=== PATIENT | male | born 1955 | race Caucasian/White ===

== ENCOUNTER 2017-08-16 08:17 | Day surgery (SDC) | payer BC, SELFPAY ==
[2017-08-15 12:00] VITALS: BMI 30.4
[2017-08-16] VITALS (12 sets, daily range): BP systolic 112–131; BP diastolic 57–85; PULSE 65–73; RESP 12–18; TEMP 36.7–36.8; O2SAT 92–98
--- NOTE | 2017-08-16 10:35 | HMH.SCOPE ---
- Procedure: Date/Time of Procedure:: 08/16/17 10:35 Procedure Performed:: Total colonoscopy to terminal ileum with polypectomy by hot snare and biopsy forceps Indications:: Patient is a 61-year-old white male referred for colonoscopy. I performed colonoscopy in 2011 as an initial screen and he had a couple of serrated adenomas and a tubular adenoma. I had recommended a 3 year follow-up colonoscopy. He is asymptomatic. There was a concern for possible hernia by his primary care providers but this was shown to be rectus diastases. Performing Provider:: John Barajas MD Referring Provider:: Oliver Velazquez MD Sedation:: Versed 9 mg, fentanyl 200 mcg. Procedure:: Consent was obtained and patient was taken to same day surgery endoscopy procedure room. He was positioned in a lateral decubitus position. Adequate intravenous sedation was achieved. Variable stiffness Olympus colonoscope was inserted via the anus and advanced to cecum with only minor difficulty. Colonic preparation was good. The appendiceal orifice and ileocecal valve were clearly identified. The colonoscope was advanced into the terminal ileum which appeared grossly normal. Colonoscope was withdrawn through the colon. Near the hepatic flexure there was an irregular adenomatous appearing polyp removed with hot snare. As the colonoscope was withdrawn surveillance was Carried out and several polyps which were rather diminutive were encountered. Most of these appeared to be non-adenomatous. They were removed using cold biopsy forceps in the transverse colon, splenic flexure region, descending colon, sigmoid ?2, rectosigmoid region, and rectal polyps. A couple of the rectal polyps appeared to be small possibly adenomatous. Retroflexion within the rectum revealed no evidence of any pathologic internal hemorrhoids. Findings:: Polyps Impressions:: Polyps Recommendations:: Follow up on the histopathology. Likely plan for follow-up colonoscopy 3-5 years pending the pathology Complications:: None Estimated blood obtained (mL): 1
--- NOTE | 2017-08-16 12:56 | SUR.OPER ---
ERBE cautery used on polyp removal. Cautery 200, coag 25. Grounded to right thigh. skin intact at removal.
== END 2017-08-16 11:00 | disposition home or self-care (01) ==
PROVIDERS: Family Provider Internal Medicine; PCP Internal Medicine Adolescent Medicine; Visit Provider Surgery
PROC: 0DJD8ZZ Inspection of Lower Intestinal Tract, Via Natural or Artificial Opening Endoscopic (ICD-10-PCS; CPT 45385; principal; 2017-08-16 09:00)
DX: Z12.11 Encounter for screening for malignant neoplasm of colon (principal); Z86.010 Personal history of colon polyps; K63.5 Polyp of colon; K62.1 Rectal polyp
CPT/HCPCS: 45385; 45380; 99152; 99153

== ENCOUNTER → 2018-01-16 11:39 | Outpatient (CLI) | payer BC, SELFPAY ==
--- NOTE | 2018-01-16 11:45 | NM_ITS ---
History and Indications: Tobacco use, chest pain, shortness of breath, palpitations, syncope fatigue and abnormal EKG Procedure: Patient exercised on Pelon protocol 6 minutes and 20 seconds, resting heart rate was 67 beats per pressure 134/88, with exercise maximum heart rate achieved was 1 20 bpm which is equal to 76% of the maximum predicted heart rate and a blood pressure was 1 7570. Test was started due to shortness of breath patient denied any complained of chest pain. Patient has adequate exercise capacity achieved 7METS of workload on treadmill, the blood pressure response to exercise was adequate, patient did not achieve the target heart rate. Electrocardiogram: Resting electrocardiogram showed sinus rhythm premature atrial complexes, with exercise frequent premature ventricular complexes present, less than 1.[address] segment depression noted from the baseline EKG. The EKG portion of the exercise Myoview is nondiagnostic. Cardiac stress and resting SPECT images: Cardiac stress and rest SPECT images were obtained using technetium 99 Myoview 31.8 mCi at stress and 10.4 mCi at rest, gated SPECT further analysis of segmental wall motion and calculation of the ejection fraction also done. Cardiac stress and resting SPECT images show decreased tracer activity in the inferior and apical wall which improves on the resting images suggestive of reversible ischemia, computer derived ejection fraction is 48% with no obvious regional wall motion abnormality, right ventricle is normal size and contractility. Conclusion: 1. The EKG portion of the exercise Myoview is nondiagnostic as patient did not achieve the target heart rate. Patient has adequate exercise capacity achieved 7METS of workload on treadmill, the blood pressure response to exercise was adequate, there was no exercise-induced chest discomfort test was stopped due to shortness of breath. 2. Scintigraphic evidence of mild reversible ischemia involving the inferior and apical wall. Computer derived ejection fraction is 48% with no obvious regional wall motion abnormality, right ventricle is normal size and contractility. 3. Abnormal exercise Myoview study.
--- NOTE | 2018-01-16 13:37 | HMH.ITSHM ---
GABAPENTIN ZYRTEC ASA
== END ==
PROVIDERS: Family Provider Internal Medicine; PCP Internal Medicine Adolescent Medicine; Visit Provider Internal Medicine Adolescent Medicine
DX: R94.31 Abnormal electrocardiogram [ECG] [EKG] (principal); R53.81 Other malaise
CPT/HCPCS: 78452; 93017; 93306; A9502

== ENCOUNTER → 2018-01-30 07:51 | Outpatient (CLI) | payer BC, SELFPAY ==
--- NOTE | 2018-01-30 07:55 | US_ITS ---
US Arterial Ankle Brachial Ind History: ITS.REASON: claudication millicuries smoker, wrist pain ORDERING PHYSICIAN: Franco Hanna MD PATIENT AGE: 62 years TECHNIQUE: Segmental pressures obtained of both right and left leg. These are compared to brachial blood pressure to yield index at each level sampled including summary GISELA. The data sheets from the procedure are available in PACS FINDINGS Rest study only performed today No prior studies available for comparison. Blood pressures reported are in millimeters mercury. RIGHT LEG GISELA = 1.4. RIGHT LEG TBI=.9 Brachial BP: 130 Thigh BP: 152 Calf BP: 162 Ankle PT: 176 Ankle DP : 171 Digit =111 LEFT LEG GISELA = 1.3 LEFT LEG TBI= .9 Brachial BPD: 127 Thigh BP: 157 Calf BP: 171 Ankle PT:174 Ankle DP: 171 Digit = 121 Pulses and waveforms: Normal IMPRESSION: 1. The ABIs are slightly high consistent with hardening of the vessels which may be seen with diabetes. 2. Normal TBIs
== END ==
PROVIDERS: Family Provider Internal Medicine; PCP Internal Medicine Adolescent Medicine; Visit Provider Internal Medicine
DX: I70.213 Atherosclerosis of native arteries of extremities with intermittent claudication, bilateral legs
CPT/HCPCS: 93922

== ENCOUNTER → 2019-01-15 08:58 | Outpatient (CLI) | payer BC, SELFPAY ==
--- NOTE | 2019-01-15 09:03 | XR_ITS ---
XR tibia fibula LT 2V CLINICAL INDICATION: ITS.REASON: ACUTE LT KNEE PAIN, HX LOW LEG FX ORDERING PHYSICIAN: Elle Sal APRN PATIENT AGE: 63 years Comparison: 11/23/2010 FINDINGS: There are no post surgical images available other than from today. Previous radiograph demonstrated displaced fracture of the proximal tibia and mid shaft of the fibula. There is been placement of an intramedullary gina stabilizing the fracture fragments with healing of the proximal tibia and mid shaft fibular fracture with good alignment. There are 3 screws in the proximal aspect of the intramedullary gina. The second screw from the top is slightly. Age of this is unknown. The other screws have an unremarkable appearance. IMPRESSION: Status post ORIF healed left tib-fib fractures with good alignment. Intramedullary gina is present with some bowing of the second screw from the top at the proximal tibia age indeterminate. The other screws have an unremarkable appearance
--- NOTE | 2019-01-15 09:03 | XR_ITS ---
XR knee LT 3V HISTORY: ITS.REASON: ACUTE LT KNEE PAIN, HX LOW LEG FX ORDERING PHYSICIAN: Elle Sal APRN PATIENT AGE: 63 years COMPARISON: 11/23/2010 FINDINGS The knee joint has an unremarkable appearance. No acute fracture or dislocation evident. Prior ORIF proximal tibial fracture. Please see tib-fib report for further description. IMPRESSION: No acute finding of the knee
== END ==
PROVIDERS: PCP Internal Medicine Adolescent Medicine; Visit Provider Nurse Practitioner Family
DX: M25.562 Pain in left knee (principal); Z87.81 Personal history of (healed) traumatic fracture
CPT/HCPCS: 73562; 73590

== ENCOUNTER 2020-11-20 17:30 | Emergency (ER) | payer MEDICARE, BC, SELFPAY ==
[2020-11-20] VITALS (7 sets, daily range): BP systolic 116–165; BP diastolic 52–82; PULSE 59–82; RESP 16–20; TEMP 36.6–36.7; O2SAT 95–98; BMI 30.8
--- NOTE | 2020-11-20 17:42 | CT_ITS ---
PROCEDURE: CT ABDOMEN PELVIS WO CON CLINICAL INDICATION: r/o stone Right-sided flank pain COMPARISON: No exams were available for comparison TECHNIQUE: Axial images obtained with sagittal and coronal reformats. All CT scans at the facility use one or more dose reduction, viz: automated exposure control, ma/kV adjustment per patient size (including targeted exams where dose is matched to indication, i.e. head), or iterative reconstruction technique. FINDINGS: LOWER THORAX: Atelectatic changes are present in the lingula. 6 mm subpleural nodular opacity left lower lobe laterally. Consider 6-12 month follow-up. ABDOMEN & PELVIS: There are several low-density lesions of the liver the largest in the right hepatic lobe measuring 3 cm suggestive hepatic cyst. There is mild prominence of the biliary tree of the left hepatic lobe. The gallbladder has an unremarkable appearance. There is splenomegaly at 15 cm. The left adrenal gland is enlarged maintaining an adrenal form shape consistent adenomatous involvement. Bilateral renal calculi are noted measuring up to 6 mm on the left and 3 mm on the right. There is mild to moderate left hydronephrosis and hydroureter secondary to an 8 mm stone at the left ureterovesical junction. No intestinal obstruction or free air. No evidence of appendicitis or diverticulitis. Christianson catheter is present. Mildly enlarged prostate. Chronic wedge compression changes are present at T12 with loss of height centrally of approximately 50 percent and anteriorly approximately 40 percent. There are numerous small sclerotic foci of the spine pelvis and proximal femora. IMPRESSION: 1. 8 mm left ureterovesical junction stone with [id number] left hydronephrosis and hydroureter with bilateral renal calculi.. 2. Hepatic cysts. Suspected biliary dilatation of the left hepatic lobe. Enhanced CT or MRI of the liver and biliary tree may provide further evaluation. 3. Splenomegaly. 4. Numerous small blastic foci of the spine and pelvis raising the suspicion of metastatic disease. Consider whole-body bone scan for further evaluation. 5. 6 mm left lower lobe nodule. Consider 6-12 month follow-up Dictated by: Ishan Aragon MD 11/21/2020 06:28 Ishan Aragon MD in [place] 11/21/2020 06:28
[2020-11-20 17:49] LABS: Basophils % 0.6 % (0.1-2.0); Eosinophils # 0.2 K/mm3 (0.0-0.4); Eosinophils % 3.2 % (0.1-12.0); Hematocrit 46.9 % (42.0-52.0); Hemoglobin 15.5 g/dL (14.1-18.0); Lymphocytes # 1.2 K/mm3 (0.7-4.5); Mean Corpuscular HGB Conc 32.9 g/dL (31.8-35.4); Mean Corpuscular Hemoglobin 30.6 pg (27.0-31.2); Mean Corpuscular Volume 92.8 fl (80-94); Monocytes # 0.4 K/mm3 (0.1-1.0); Monocytes % 5.6 % (1.7-9.3); Neutrophils # 5.1 K/mm3 (1.8-7.8); Neutrophils % 73.7 % (37.0-80.0); Platelet Count 148 K/mm3 (142-424); Red Blood Count 5.06 M/mm3 (4.60-6.20)
--- NOTE | 2020-11-20 17:51 | HMH.EDGENADL ---
ED Disposition Clinical Impression: Left ureteral calculus Disposition: Home, Self-Care Condition on Discharge: Fair Instructions: DI for Kidney Stones Additional Instructions: Nothing to eat or drink after midnight tonight. Percocet as needed for pain. Zofran as needed for nausea. Additional instructions for KIDNEY STONE (URETERAL CALCULUS): Drink plenty of fluids until midnight. Strain your urine and save any stones you catch. Return immediately if you develop a fever or have uncontrollable vomiting or uncontrollable pain. A pulmonary nodule (spot on the lung) was discovered during your evaluation today. It is recommended that you follow-up with a primary care provider for further evaluation. Additional instructions for CONTROLLED SUBSTANCES: You have been prescribed a medication that is a controlled substance. Controlled substances include pain medications known as opiates and sedative nerve medications known as benzodiazepines. Tramadol, fioricet, and gabapentin are also controlled substances. Some common opiates include: Codeine (such as Tylenol #3) Hydrocodone (Vicodin, Lortab, Lorcet, Lenorah) Oxycodone (Percocet, Percodan, Oxycodone, Oxy IR) Some common benzodiazepines include: Diazepam (Valium) Lorazepam (Ativan) Alprazolam (Xanax) Clonazepam (Klonopin) Oxazepam (Serax) All of these controlled substances are highly addictive and frequently abused. Misuse can and frequently does lead to addiction as well as overdose and . Medication should be stored in a locked cabinet or other secure storage unit. Do not store the medication in a motor vehicle. Short term supplies, 3 days or less, are prescribed because of the highly addictive nature of the medication. Any of the controlled substance medication NOT taken should be disposed of properly and NOT SAVED. The recommended method of disposing of unused medications is: Place the medicines in a sealable plastic bag. If the medicine is a solid, crush it or add water to dissolve it. Add something undesirable (cat litter, coffee grounds, etc.) Dispose of sealed bag in household trash Do not flush or pour unused medicines down a sink or drain. Controlled substances should not be shared, given away or sold. Because of the addictive nature and frequent abuse, these medications are sometimes stolen. These medications should be kept in a safe place where they cannot be stolen. Do not keep them in your car or purse. Lost or stolen prescriptions for controlled substances WILL NOT BE REFILLED in this emergency department, regardless of whether a police report was filed. Prescriptions: Tamsulosin HCl [Flomax 0.4mg capsule] 0.4 mg PO HS #10 cap.er.24h Transmission Status: Pending to [facility]/pharmacy #[id number] Oxycodone HCl/Acetaminophen [Percocet 10-325 mg Tablet] 1 tab PO Q4H PRN #12 tab PRN Reason: Moderate To Severe Pain Transmission Status: Received by [facility]/pharmacy #[id number] Ondansetron [Zofran 4mg ODT] 4 mg PO TIDP PRN #10 tab.rapdis PRN Reason: Nausea And Vomiting Transmission Status: Pending to [facility]/pharmacy #[id number] Referrals: Elle Sal APRN [Primary Care Provider] - - Critical Care Critical Care Time: No Attestation: On , the high probability of a clinically significant, sudden or life threatening deterioration of the following system(s) required my full and direct attention, intervention and personal management. The time I documented below is in addition to time spent performing reported procedures but includes the following listed in this critical care notation. Medical Decision Making - Francisco Inquiry Pt receiving controlled substance: Yes Francisco was queried for this patient: Yes Risks and benefits of using a controlled substance: were discussed with pt by me Vital Signs: 11/20/20 17:31 11/20/20 18:02 11/20/20 18:30 Temperature 98.1 F Temperature Source Oral Pulse Rate 74 82 Pulse Rate [Radi
[2020-11-20 17:54] LABS: Chloride 107 mmol/L (98-107); Sodium 137 mmol/L (136-145)
[2020-11-20 17:55] LABS: Potassium 4.2 mmoL/L (3.5-5.1)
[2020-11-20 17:57] LABS: Alanine Aminotransferase 21 U/L (12-78); Albumin Level 4.5 g/dl (3.5-5.0); Albumin/Globulin Ratio 1.7 (1.1-1.8); Alkaline Phosphatase 81 U/L (38-126); Anion Gap 10.2 mEq/L (5-15); Aspartate Amino Transferase 23 U/L (17-59); Bilirubin,Total 0.5 mg/dl (0.2-1.3); Blood Urea Nitrogen 18 mg/dl (9-20); Carbon Dioxide 24 mmol/L (22.0-30.0); Creatinine Clearance Estimated 112 mL/min (50-200); Estimated Glomerular Filt Rate 84 ml/min (>60); GFR (African American) 102 ML/MIN (>60); Globulin 2.6 g/dL (1.3-3.2); Total Protein,Serum 7.1 g/dl (6.3-8.2)
[2020-11-20 17:58] LABS: Calcium 9.1 mg/dl (8.4-10.2); Glucose 109 mg/dl (74-100)
--- NOTE | 2020-11-20 18:10 | PC.NURSE ---
PT STATES STILL UNABLE TO GIVE A URINE SPECIMEN
[2020-11-20 18:48] LABS: Microscopic, Urine URINE MICROSCOPIC (MICROSCOPIC)
[2020-11-20 19:04] LABS: Appearance,Urine CLEAR (Clear); Bilirubin,Urine Negative (Negative); Blood, Urine 3+ (Negative); Color,Urine YELLOW (Yellow); Glucose,Urine (UA) Negative (Negative); Ketones,Urine Negative (Negative); Leukocyte Esterase,Urine Negative (Negative); Nitrate,Urine Negative (Negative); PH,Urine 5.5 (5.0-8.5); Protein,Urine Negative (Negative); Specific Gravity, Urine >= 1.030 (1.005-1.030); Urobilinogen,Urine 0.2 EU/dl (0.2)
[2020-11-20 19:07] LABS: RBC,Urine 20-50 #/hpf (0-3); Squamous Epithelial Cell,Urine Occasional #/hpf (0-5)
--- NOTE | 2020-11-20 19:13 | PC.NURSE ---
pt returned from CT via wheelchair
--- NOTE | 2020-11-20 19:48 | PC.NURSE ---
on phone with Dr esparza
--- NOTE | 2020-11-20 20:11 | PC.NURSE ---
s/w Sandra Gonzáles in regards to adding pt on for Dr. Linares's surgery schedule for tomorrow and verified time with Dr. Linares. Pt was instructed to be at [facility] at 1400 on 11/21/20, and NPO at 0000 (midnight). Christianson removed per Dr. Ochoa.
--- NOTE | 2020-11-20 20:13 | PC.NURSE ---
spoke to house and was advised they had an opening for surgery at 0730 in the morning or after dr. eastman [address] esparza and he advised to schedule after his [address] sure[address] informed house of dr. esparza's decision and advised patient to be here at 1400 tomorrow and be npo after midnight per house.
[2020-11-20 20:36] LABS: Coronavirus 19 IgG Antibody Negative (Negative); Coronavirus 19 IgM Antibody Negative (Negative)
== END 2020-11-20 20:24 | disposition home or self-care (01) ==
PROVIDERS: Emergency Provider Emergency Medicine; PCP Nurse Practitioner Family
DX: N13.2 Hydronephrosis with renal and ureteral calculous obstruction (principal); Z87.442 Personal history of urinary calculi; I10 Essential (primary) hypertension; R91.1 Solitary pulmonary nodule; Z01.84 Encounter for antibody response examination
CPT/HCPCS: 74176; 80053; 81001; 85025; 86328; 96365; 96375; 96376; 99283; J2405

== ENCOUNTER 2020-11-21 14:33 | Day surgery (SDC) | payer MEDICARE, BC, SELFPAY ==
[2020-11-21] VITALS (9 sets, daily range): BP systolic 108–135; BP diastolic 66–78; PULSE 60–68; RESP 16–20; TEMP 36.5–43; O2SAT 91–96; BMI 30.8
--- NOTE | 2020-11-21 15:23 | P.PN_ITS ---
[facility] Anesthesia Checklist - Patient Identification Patient Identification: Arm Band - Structural Data Admitted From: Home Planned Operative Procedure/s: Left Ureteroscopy with Laser Stone Extraction Consent for Planned Operative Procedure(s) Verified: Yes Verified Documents: Surgical Consent, History and Physical - NPO Status Verified Time NPO: 00:00 - Additional verifications Anesthesia Reactions: No Hx Blood Transfusions: No Blood Transfusion Reaction: No - Airway Assessment C-Spine Mobility Assessed: Yes (mp2) TMJ Mobility Assessed: Yes Dentition: Good Dentition - Neurological Assessment Level of Consciousness: Awake, Alert - Anesthesia Plan Anesthesia Risk discussed: Yes Anesthesia Plan: Verified ASA Class: II Anesthesia Type: General [facility] History Medical History: Reports:: Hyperlipidemia, Hypertension Denies:: Cancer, Diabetes Mellitus Type 1, Diabetes Mellitus Type 2, Internal Pacemaker, Lung Disease, MRSA, Seizures *Have you ever received a pneumonia vaccine?: Yes *Have you received a flu vaccine this season?: Yes Other Medical History: Denies: Blood Transfusion Reaction Anesthesia experience/problems:: nac Laterality Cases: Bilateral: Tonsillectomy Other Surgeries: Yes: Cardiac Catheterization (01/25/18 no stents), Colonoscopy, Hernia Repair, Other. No: Pacemaker Amputation: No Fractures: Yes (left leg) - *Social History Last grade of school completed: High school graduate Smoking Status: Current every day smoker Tobacco Type: cigarettes # Packs/Day (cigarettes): 2 Alcohol Intake: never Alcohol Intake Frequency:: other Substance Use Type: denies use *Occupational Status:: retired Housing: house Household Members: spouse *Travel in the last 8 weeks: None Family Hx:: No significant family history
--- NOTE | 2020-11-21 15:51 | P.OP_ITS ---
Date of procedure: 11/21/20 Pre-op Diagnosis:: 8 mm distal left ureteral stone Post-op Diagnosis:: No evidence of stone in the ureter or kidney Procedure performed:: Cystoscopy with ureteroscopy and pyeloscopy Surgeon:: Tani Linares MD ELECTRONIC SCANNER OPERATOR:: Roberto Lyn Anesthesia: GETA Estimated blood loss (mL): 0 Clinical Note:: 65-year-old white male with 2 ER visits this week for left renal colic. He has an 8 mm stone in the distal left ureter by CT scan. He was in the emergency room last night and was discharged home to return today for outpatient surgery. He denies having passed a stone during the evening. He does complain of some dysuria today. Operative findings:: No evidence of stone in the ureter or kidney on ureteroscopy. Operative note:: Patient taken to the operating room after informed consent was obtained. He was placed on the operating table in the supine position and general anesthesia administered. Preoperative antibiotics and sequential compression devices placed. He was then placed into the dorsal lithotomy position and prepped and draped in standard surgical fashion. 22 Cristopher passed into the urethra and into the bladder without difficulty. The bladder was examined in a systematic fashion. There is no evidence of mucosal abnormalities, stones, diverticula or trabeculation. The ureteral orifices in their normal anatomic position and of normal caliber. Was a little bit of blood at the left ureteral orifice. A guidewire was passed into the left ureteral orifice and passed into the renal pelvis without resistance. The cystoscope removed and our semirigid ureteroscope then passed into the ureter and up to the mid ureter without evidence of a stone. Fluoroscopy revealed no evidence of calcifications. I then passed the flexible ureteroscope over the guidewire and into the kidney and the renal calyces were inspected and no evidence of stones. Scope removed bladder drained Urojet placed into the urethra. Patient tolerated procedure well no complications. Condition: stable Disposition: PACU Specimens:: None Complications:: None
--- NOTE | 2020-11-21 15:51 | P.PN_ITS ---
[facility] Anesthesia Record Part I Intake, IV Amount: 500 Estimated blood loss (mL): 0 Urine output (mL): 0 Blood Pressure: 122/66 SaO2: 96 Pulse Rate: 65 Respiratory Rate: 16 Temperature: 98.1 F Patient is:: Drowsy, Stable Stable to PACU at:: 15:45
--- NOTE | 2020-11-21 18:07 | XR_ITS ---
PROCEDURE: XR KUB CLINICAL INDICATION: Left ureteral stone COMPARISON: CT CT ABDOMEN PELVIS WO CON from 11/20/2020 FINDINGS: Fluoroscopy time: 16 seconds. Two images are submitted with the C-arm showing a ureteral scope in place on the left. IMPRESSION: S/p ureteroscopy with fluoro guidance. Dictated by: Ishan Aragon MD 11/22/2020 10:35 Ishan Aragon MD in [place] 11/22/2020 10:35
--- NOTE | 2020-11-22 10:36 | HMH.ANESII ---
[facility] Anesthesia Record Part II Discharge Time: 16:15 Destination: Surgical Day Care (OP Surgery) PACU nurse assessment reviewed?: Yes Patient Condition:: Good Anesthesia Complications:: None Swallowing reflex intact?: Yes Cyanosis?: No Blood Pressure: 129/70 Pulse Rate: 60 Temperature: 97 F Mental Status: Alert & Oriented Pain level:: 0 Nausea and/or vomitting:: None Intake, IV Amount: 0
[2020-11-22 10:37] VITALS: BP 129/70; PULSE 60; TEMP 36.1
== END 2020-11-21 16:39 | disposition home or self-care (01) ==
LOC: OR 14:36
PROVIDERS: PCP Nurse Practitioner Family; Visit Provider Urology
PROC: (CPT 52352; principal; 2020-11-21 17:15)
DX: N20.1 Calculus of ureter (principal); Z87.442 Personal history of urinary calculi; E78.5 Hyperlipidemia, unspecified; I10 Essential (primary) hypertension; Z72.0 Tobacco use; G25.81 Restless legs syndrome; Z86.73 Personal history of transient ischemic attack (TIA), and cerebral infarction without residual deficits; Z79.82 Long term (current) use of aspirin; Z79.899 Other long term (current) drug therapy
CPT/HCPCS: 52351; 74018; 76000; 96374; J2405

== ENCOUNTER → 2021-12-04 15:11 | Outpatient (CLI) | payer MEDICARE, BC, SELFPAY ==
--- NOTE | 2021-12-04 15:14 | CT_ITS ---
FINAL REPORT CLINICAL HISTORY: current smoker COMPARISON: Abdomen pelvis CT dated November 20, 2020. FINDINGS: Low-Dose Chest CT CTDI vol (mGy): 2.90 DLP (mGy-cm): 106.81 Axial images were obtained from the lung apex to the mid abdomen by computed tomography. Low-dose protocol was utilized. FINDINGS: CHEST: There is no axillary adenopathy. There is no hilar adenopathy. There is an 18 mm cystic mass in the anterior mediastinum which is nonspecific in favors benign. The heart is proper size. There are mild vascular calcifications. There is no pericardial or pleural effusion. Limited images of the upper abdomen demonstrates stable low-attenuation hepatic masses which favors cysts. There are several small renal stones. Lung window images demonstrate mild pulmonary scarring. There is a 6 mm pleural based nodular opacity in the lateral left lung base on image 59 which is stable. IMPRESSION: Stable 6 mm nodule in the left base. Lung RADS category 2. Recommend 12 month follow-up low-dose chest CT. Reviewed, Interpreted and Dictated by John Victor III, MD Transcribed by Kalpana Kaiser Authenticated by John Victor III, MD on 12/04/2021 04:05:09 PM [facility]
== END ==
PROVIDERS: PCP Nurse Practitioner Family; Visit Provider Nurse Practitioner Family
DX: Z87.891 Personal history of nicotine dependence (principal); Z12.2 Encounter for screening for malignant neoplasm of respiratory organs
CPT/HCPCS: 71271

== ENCOUNTER 2022-08-20 07:29 | Day surgery (SDC) | payer MEDICARE, BC, SELFPAY ==
[2022-08-16 08:52] VITALS: BMI 32.1
[2022-08-20 07:44] VITALS: BP 124/64; PULSE 78; RESP 16; TEMP 36.4; O2SAT 94
[2022-08-20 08:51] VITALS: O2SAT 94
--- NOTE | 2022-08-20 09:32 | EXP.ANES.CKL ---
[facility] Disclaimer: The information contained in this section may have been updated after the patient was seen, as this information can be updated by other users. Medical History Enlarged prostate Hernia Surgical History History of surgery History of surgery Family History Father Throat cancer Social History Smoking Status: Current every day smoker tobacco type: cigarettes packs per day: 2 years smoked: 50 second hand exposure: No alcohol intake: never counseling provided: provider counseling substance use type: denies use current occupational status: retired Travel in the last 8 weeks: None household members: spouse housing: house current occupation: [employer] current occupational exposures/hazards: No caffeine: Yes [facility] Anesthesia Checklist Patient Identification Patient Identification: Verbal (Name & ) Structural Data Admitted From: Home Planned Operative Procedure/s: colonoscopy Consent for Planned Operative Procedure(s) Verified: Yes Additional verifications Anesthesia Reactions: No Hx Blood Transfusions: No Blood Transfusion Reaction: No Neurological Assessment Level of Consciousness: Awake, Alert and Appropriate Anesthesia Plan Anesthesia Risk discussed: Yes Anesthesia Plan: Verified ASA Class: III Anesthesia Type: MAC
--- NOTE | 2022-08-20 09:42 | HMH.SCOPE ---
Procedure: Date: 08/20/22 Patient Date of :: 1955 Procedure Performed:: Total colonoscopy to terminal ileum with polypectomy using biopsy and snare Indications:: Patient is a 66-year-old male presents for follow-up colonoscopy due to history of polyps. He had colonoscopy in 2011 and had a couple of serrated adenomas. Colonoscopy on 08/16/2017 revealed at least 6 tubular adenomas and a couple of serrated adenomas. Colonoscopy was recommended for 2 years. That was 5 years ago. Performing Provider:: John Barajas MD Referring Provider:: Cristiane Sal Sedation:: MAC sedation Procedure:: Patient history was obtained and appropriate physical examination was performed. Patient's medications and allergies were reviewed. Informed consent was obtained after explaining the benefits, alternatives, and risks of the procedure including, but not limited to, bleeding, perforation, missed lesions, and adverse reaction to anesthesia medications. Patient was transported to endoscopy procedure room. Patient was connected to monitoring devices. Throughout the procedure the patient's blood pressure, pulse, and oxygen saturations were monitored continuously. Patient identification and planned procedure were verified by the staff. Patient was positioned in lateral decubitus position. Digital anorectal exam was performed. Variable stiffness Olympus colonoscope was inserted and advanced under direct visualization to the cecum. Adequacy of the colonic preparation was noted. The colonoscope was advanced a short distance into the terminal ileum. The colonoscope was then slowly withdrawn while carefully examining the color, texture, anatomy, and integrity of the mucosoa circumferentially. Within the rectum retroflexion was performed. Colonoscope was then withdrawn. Findings:: Colonoscope was inserted via the anus. He had a fair colonic preparation with stool coating some of the colon vela. This could not be fully cleared despite irrigation and suctioning. At the hepatic flexure there was a relatively small adenomatous appearing polyp removed with cutting snare. In the distal transverse colon there was a small to moderate adenomatous appearing polyp removed with cutting snare. It was unclear if this was fully retrieved due to spasticity of the colon and fair preparation. Residual polyp was removed with the biopsy forceps. In the descending colon there was a tiny diminutive polyp removed with biopsy forceps. In the transverse colon after readvancement of the colonoscope in an attempt to identify the previous polyp there was a small polyp removed with biopsy forceps. Additional polyp in the descending colon was removed with biopsy forceps. IMPRESSION: Fair colonic preparation which could not be cleared with irrigation and suctioning Polyps as noted above Recommendations:: Given the suboptimal preparation and potential for missed lesions as well as prior history and current polyps likely recommend repeat colonoscopy 2 years with multi day prep Complications:: None immediately apparent Estimated blood obtained (mL): 2
[2022-08-20 09:43] VITALS: BP 142/65; PULSE 83; RESP 16; TEMP 36.6; O2SAT 93
[2022-08-20 09:53] VITALS: BP 123/53; PULSE 80; RESP 18; TEMP 36.6; O2SAT 95
[2022-08-20 10:03] VITALS: BP 122/68; PULSE 80; RESP 18; TEMP 36.6; O2SAT 97
[2022-08-20 10:17] VITALS: BP 151/99; PULSE 70; RESP 18; TEMP 36.6; O2SAT 97
== END 2022-08-20 10:17 | disposition home or self-care (01) ==
PROVIDERS: PCP Nurse Practitioner Family; Visit Provider Surgery
PROC: 0DJD8ZZ Inspection of Lower Intestinal Tract, Via Natural or Artificial Opening Endoscopic (ICD-10-PCS; principal; 2022-08-20 08:30)
DX: Z12.11 Encounter for screening for malignant neoplasm of colon (principal); D12.6 Benign neoplasm of colon, unspecified; Z86.010 Personal history of colon polyps; F17.210 Nicotine dependence, cigarettes, uncomplicated; Z79.899 Other long term (current) drug therapy
CPT/HCPCS: 45380; 45385; 88305

== ENCOUNTER 2022-09-03 06:32 | Emergency (ER) | payer MEDICARE, BC, SELFPAY ==
[2022-09-03 06:44] VITALS: BP 140/91; PULSE 81; RESP 18; TEMP 37; O2SAT 96; BMI 32.1
[2022-09-03 07:00] LABS: Microscopic, Urine URINE MICROSCOPIC (MICROSCOPIC)
[2022-09-03 07:01] VITALS: BP 150/81; PULSE 82; O2SAT 95
[2022-09-03 07:02] LABS: Basophils # 0.1 K/mm3 (0-0.2); Basophils % 0.9 % (0.1-2.0); Eosinophils # 0.3 K/mm3 (0.0-0.4); Eosinophils % 5.9 % (0.1-12.0); Hematocrit 48.3 % (42.0-52.0); Hemoglobin 15.8 g/dL (14.1-18.0); Lymphocytes % 16.8 % (10-50); Mean Corpuscular HGB Conc 32.8 g/dL (31.8-35.4); Mean Corpuscular Hemoglobin 30.7 pg (27.0-31.2); Mean Corpuscular Volume 93.6 fl (80-94); Mean Platelet Volume 8.6 fl (7.4-10.4); Monocytes # 0.3 K/mm3 (0.1-1.0); Monocytes % 4.9 % (1.7-9.3); Neutrophils # 4.2 K/mm3 (1.8-7.8); Neutrophils % 71.5 % (37.0-80.0); Platelet Count 163 K/mm3 (142-424); Red Blood Count 5.16 M/mm3 (4.60-6.20); Red Cell Distribution Width 13.2 % (11.5-17.5); White Blood Count 5.9 K/mm3 (4.8-10.8)
[2022-09-03 07:06] LABS: Appearance,Urine CLEAR (Clear); Bilirubin,Urine Negative (Negative); Blood, Urine Negative (Negative); Color,Urine YELLOW (Yellow); Glucose,Urine (UA) Negative (Negative); Ketones,Urine Negative (Negative); Leukocyte Esterase,Urine Negative (Negative); Nitrate,Urine Negative (Negative); Protein,Urine Negative (Negative); Specific Gravity, Urine 1.025 (1.005-1.030); Urobilinogen,Urine 0.2 EU/dl (0.2)
[2022-09-03 07:08] LABS: Alanine Aminotransferase 30 U/L (12-78); Albumin Level 4.4 g/dl (3.5-5.0); Albumin/Globulin Ratio 1.5 (1.1-1.8); Alkaline Phosphatase 81 U/L (38-126); Anion Gap 11.5 mEq/L (5-15); Aspartate Amino Transferase 25 U/L (17-59); Bilirubin,Total 0.5 mg/dl (0.2-1.3); Blood Urea Nitrogen 12 mg/dl (9-20); Calcium 8.5 mg/dl (8.4-10.2); Carbon Dioxide 28 mmol/L (22.0-30.0); Chloride 104 mmol/L (98-107); Creatinine Clearance Estimated 115 mL/min (50-200); Estimated Glomerular Filt Rate 96 ml/min (>60); GFR (African American) 117 ML/MIN (>60); Glucose 109 mg/dl (74-100); Potassium 4.5 mmoL/L (3.5-5.1); Sodium 139 mmol/L (136-145); Total Protein,Serum 7.4 g/dl (6.3-8.2)
[2022-09-03 07:14] LABS: C-Reactive Protein 0.9 mg/L (0-4)
--- NOTE | 2022-09-03 07:14 | CT_ITS ---
FINAL REPORT TECHNIQUE: Thin section axial images were obtained from the lung bases to the pubic symphysis without IV contrast. Coronal reconstruction images were obtained from the axial data. Exam was performed using dose reduction technique. CLINICAL HISTORY: Low back and flank pain COMPARISON: 11/20/2020 FINDINGS: There are bilateral nonobstructing renal stones. There is no obstructing stone. There is no hydronephrosis or perinephric stranding. Previously seen distal left ureteral stone has passed. The gallbladder is present. There are multiple hypodense liver lesions which are unchanged and likely represent cysts. Left adrenal nodules are unchanged. The remaining unenhanced solid abdominal organs are unremarkable. There is no evidence of small bowel obstruction. The appendix is normal. GI tract is without acute abnormality. There are multiple mildly prominent portal and periportal lymph nodes which are unchanged. There is no ascites. There are stable sclerotic lesions in the pelvis and spine. Sclerotic bone metastasis is not excluded. IMPRESSION: No obstructing renal stones. Bilateral nonobstructing renal stones. Prominent upper abdominal lymph nodes. Stable sclerotic lesions in the pelvis and spine. Sclerotic bone metastasis is not excluded. Reviewed, Interpreted and Dictated by Lorena Laurent MD Transcribed by Radha Redman Authenticated and [facility]
--- NOTE | 2022-09-03 07:14 | CT_ITS ---
FINAL REPORT TECHNIQUE: Thin section axial images were obtained through the lumbar spine without contrast. Sagittal and coronal reconstruction images were obtained from the axial data. Exam was performed using dose reduction techniques. CLINICAL HISTORY: flank pain, low back pain COMPARISON: CT abdomen and pelvis dated 11/20/2020 FINDINGS: A compression fracture of T12 is unchanged as compared to the prior exam. Remaining vertebral body height is preserved. There is grade 1 anterior spondylolisthesis of L4 on L5. Alignment is otherwise normal. There are multiple scattered small sclerotic lesions similar to the prior exam. Metastatic disease is not excluded. Paraspinal soft tissues are within normal limits. There is no paraspinal mass or fluid collection. L1-2: No significant canal stenosis or neural foraminal narrowing. L2-3: There is an annular disc bulge with no central canal stenosis but mild bilateral neural foraminal narrowing. L3-4: There is an annular disc bulge with no central canal stenosis but mild bilateral neural foraminal narrowing. L4-5: There is an annular disc bulge with bilateral facet osteoarthropathy. There is mild to moderate central canal stenosis with moderate bilateral neural foraminal narrowing. L5-S1: There is bilateral facet osteoarthropathy. There is no significant central canal stenosis but mild bilateral neural foraminal narrowing. IMPRESSION: No acute abnormality of the lumbar spine. Stable, chronic compression of T12. Grade 1 anterior spondylolisthesis of L4 on 5 with degenerative disc disease. Small sclerotic bone lesions similar to CT of the abdomen and pelvis from 2020. Reviewed, Interpreted and Dictated by Lorena Laurent MD Transcribed by Radha Redman Authenticated and [facility]
[2022-09-03 07:17] LABS: Bacteria,Urine Trace /lpf; RBC,Urine Occasional #/hpf (0-3); Squamous Epithelial Cell,Urine Occasional #/hpf (0-5); WBC,Urine Occasional #/hpf (0-3)
[2022-09-03 07:28] LABS: Erythrocyte Sedimentation Rate 1 mm/hr (0-20)
--- NOTE | 2022-09-03 07:47 | HMH.EDBACK ---
Discharge Plan Disposition Patient Disposition: Home, Self-Care Prescriptions Prescriptions: New prednisone [prednisone] 20 mg tablet 20 mg PO BID Qty: 10 0RF No Action aspirin 81 MG tablet,chewable 81 mg PO DAILY gabapentin 400 mg capsule 400 mg PO TID meloxicam 7.5 mg tablet 7.5 mg PO DAILY finasteride 5 mg tablet 5 mg PO DAILY atorvastatin 40 MG tablet 40 mg PO HS Referrals Follow up/Referrals: Elle Sal APRN [Primary Care Provider] - See instructions Clinical Impressions Clinical Impression: Lumbar radiculopathy Instructions Patient Instructions: DI for Low Back Pain Discharge ED Provider: Brian Matthews Back Pain HPI General Chief Complaint: Back Pain/Injury Stated Complaint: right side lower back pain,top of legs hurt Time Seen by Provider: 09/03/22 07:20 Mode of Arrival: Ambulatory Source of Information: Patient Limitations: No Limitations Description of Symptoms (Recalled from ER Triage Doc. by RN): Pt arrived via private vehicle. Pt states that he has been having pain in the anterior aspect of his bilateral thighs since Tuesday evening. Denies any injury. Does report a history of neuropathy, but states that this is a different feeling pain. Patient also c/o lower right sided back pain that began last night. Also denies injury here. Says that the pain does not radiate and remains constant. Patient states that he also has had a headache since last night that hasnt responded to advil. History of Present Illness HPI Narrative: pt with rt flank pain with hx of kidney stones and also has thigh pain - no fever or trauma and no rash - no relief with otc meds - no cauda equina sx-no hematuria MD Complaint: back pain Onset (ago): day(s) Duration: intermittent Similar Symptoms Previously: No Location: lumbar spine Severity: moderate Related Data Home Medications Medication Instructions Recorded Confirmed aspirin 81 mg chewable tablet 81 mg PO DAILY blood thinner 08/15/17 09/03/22 atorvastatin 40 mg tablet 40 mg PO HS Cholesterol 03/07/18 09/03/22 finasteride 5 mg tablet 5 mg PO DAILY bph 09/03/22 09/03/22 gabapentin 400 mg capsule 400 mg PO TID neuropathy 09/03/22 09/03/22 meloxicam 7.5 mg tablet 7.5 mg PO DAILY Arthritis 09/03/22 09/03/22 Previous Rx's Medication Instructions Recorded prednisone 20 mg tablet 20 mg PO BID #10 tabs 09/03/22 Allergies Allergy/AdvReac Type Severity Reaction Status Date / Time No Known Allergies Allergy Verified 08/20/22 07:41 [facility] Disclaimer: The information contained in this section may have been updated after the patient was seen, as this information can be updated by other users. Medical History (Updated 09/03/22 @ 08:34 by Brian Matthews MD) Enlarged prostate Hernia Surgical History History of surgery History of surgery Family History Throat cancer Father Social History Smoking Status: Current every day smoker tobacco type: cigarettes packs per day: 2 years smoked: 50 second hand exposure: No alcohol intake: never counseling provided: provider counseling substance use type: denies use current occupational status: retired Travel in the last 8 weeks: None household members: spouse housing: house current occupation: [employer] current occupational exposures/hazards: No caffeine: Yes ROS Obtained: Yes All systems reviewed & no additional complaints except as documented Physical Exam General General appearance: alert Head Head exam: normocephalic Eye Eye exam: Present PERRL and EOMI ENT ENT exam: Present mucous membranes moist Neck Neck exam: Present trachea midline Respiratory Respiratory exam: Absent respiratory distress Cardiovascular Cardiovascular exam: Present regular rate Abdominal Exam Ab
[2022-09-03 08:48] VITALS: BP 113/90; PULSE 77; RESP 19; TEMP 37; O2SAT 98
[2022-09-03 09:08] LABS: Prostate Specific Ag Screen 0.3 ng/ml (0.0-4.0)
== END 2022-09-03 08:50 | disposition home or self-care (01) ==
PROVIDERS: Emergency Provider Emergency Medicine; PCP Nurse Practitioner Family
DX: M54.16 Radiculopathy, lumbar region (principal); N40.0 Benign prostatic hyperplasia without lower urinary tract symptoms; F17.210 Nicotine dependence, cigarettes, uncomplicated; Z80.9 Family history of malignant neoplasm, unspecified
CPT/HCPCS: 36415; 72131; 74176; 80053; 81001; 85025; 85651; 86140; 96361; 96374; 96375; 99285; G0103; J2405

== ENCOUNTER → 2023-04-05 13:03 | Outpatient (POV) | payer MEDICARE, BC, SELFPAY | PROVIDERS: Visit Provider Dermatology | DX: Z00.00 Encounter for general adult medical examination without abnormal findings (principal) ==

== ENCOUNTER → 2023-09-01 13:46 | Outpatient (POV) | payer MEDICARE, BC, SELFPAY ==
[2023-09-01 14:18] VITALS: BP 137/72; PULSE 97; RESP 18; O2SAT 95; BMI 33.3
--- NOTE | 2023-09-01 14:48 | A.OFFVIS_ITS ---
HPI Data of Consult Patient: new to practice Consult date: 09/01/23 Requesting Physician: Jayne Canas APRN Primary Care Provider: Elle Sal APRN Consult Narrative Reason for consult: Low back pain, left buttocks pain History of present illness: Who presents today as a new patient. He is a referral from Elle Sal's office. Today he rates his pain a 6 out of 10. Patient states he has been experiencing pain all in his low back and left buttocks. Patient states this originally started around last summer and progressively worsened over time. Patient states the pain does not radiate into his leg and only stays in and around his buttocks and hip. Patient does describe this as an aching, throbbing sensation that is worse with sitting. He states that when he gets up to walk it does improve however he still notices it right into the left buttocks. 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 Patient has tried [id number] Tylenol along with heat and ice and topicals with minimal relief. Patient is currently on gabapentin 400 mg twice daily from his PCP. His Francisco has been reviewed and is appropriate CC: Jayne Canas APRN [facility] Disclaimer: The information contained in this section may have been updated after the patient was seen, as this information can be updated by other users. Medical History (Updated 09/01/23 @ 14:53 by Jayne Canas APRN) Enlarged prostate Hernia Surgical History History of surgery History of surgery Family History Father Throat cancer Social History (Updated 09/01/23 @ 14:02 by Brunilda Whelan RN) Smoking Status: Current every day smoker tobacco type: cigarettes packs per day: 2 years smoked: 50 second hand exposure: No alcohol intake: never counseling provided: provider counseling substance use type: denies use current occupational status: retired Travel in the last 8 weeks: None household members: spouse housing: house current occupation: [employer] current occupational exposures/hazards: No caffeine: Yes Review of Systems Review of Systems Review of systems:: pertinent systems reviewed and negative unless documented below Review of systems (narrative): Review of Systems: General: No recent weight changes, no fever, no sleep disturbances Respiratory: No cough, no shortness of air, no recurring pulmonary infections Cardiovascular/peripheral vascular: No chest pain, no palpitations, no edema, no shortness of breath Gastrointestinal: No new onset incontinence, normal bowel movements reported Genitourinary: No new onset incontinence Musculoskeletal: Low back pain, left buttocks pain Psychiatric: [Normal mood/affect] Neurological: [Denies weakness in extremities], [denies balance issues] Meds Home Medications and Allergies Home Medications Medication Instructions Recorded Confirmed Type aspirin 81 mg chewable tablet 81 mg PO DAILY blood thinner 08/15/17 09/01/23 History atorvastatin 40 mg tablet 40 mg PO HS Cholesterol 03/07/18 09/01/23 History finasteride 5 mg tablet 5 mg PO DAILY bph 09/03/22 09/01/23 History gabapentin 400 mg capsule 400 mg PO TID neuropathy 09/03/22 09/01/23 History hydrocodone 5 mg-acetaminophen 325 1 tab PO TID #10 tabs 09/03/22 09/01/23 Rx mg tablet meloxicam 7.5 mg tablet 7.5 mg PO DAILY Arthritis 09/03/22 09/01/23 History New Prescriptions to Start Prescriptions: Allergies Allergy/AdvReac Type Severity Reaction Status Date / Time No Known Allergies Allergy Verified 08/20/22 07:41 Objective Vital signs: Pulse Resp BP Pulse Ox O2 Del Method 97 H 18 137/72 95 Room Air 09/01/23 14:18 09/01/23 14:18 09/01/23 14:18 09/01/23 14:18 09/01/23 14:18 Narrative: Physical Exam: General: Alert and oriented x3, no acute distress, pleasant and cooperative Lungs: Respirations even and unlabored, symmetrical chest expansion Eyes: PERRL Musculoskeletal: Flexion and extension of lumbar [spine] somewhat guarded secondary to pain, [antalgic gait noted] point tenderness along left piriformis muscle Neurological: Speech clear, no gross sensory deficit Assessment and Plan *Assessment and plan (1) Piriformis syndrome of left side: Status: Acute Category: Medical Code(s): G57.02 - Lesion of sciatic nerve, left lower limb (2) Low back pain: Status: Acute Qualifiers: Chronicity: chronic Back pain laterality: left Sciatica presence: without sciatica Qualified Code(s): M54.50 - Low back pain, unspecified; G89.29 - Other chronic pain Category: Medical Code(s): M54.50 - Low back pain, unspecified (3) Degenerative disc disease, lumbar: Status: Acute Category: Medical Code(s): M51.36 - Other intervertebral disc degeneration, lumbar region Plan Patient is experiencing significant pain in and around his low back along the left into his buttocks. Patient had point tenderness at his left piriformis muscle during today's exam. I have discussed with the patient that he may benefit from a left piriformis injection. Risk and benefits were discussed with the patient and he would like to proceed forward with this plan of care. Patient will also be ordered compounded cream. Patient will be scheduled for a left piriformis injection. Patient has been instructed to contact the clinic with any concerns before the next appointment. Dr. Crouch has reviewed this note and agrees with this plan of care. This note was dictated using voice recognition software and make contain errors or omissions.
== END ==
LOC: SC.PAIN 13:48
PROVIDERS: PCP Nurse Practitioner Family; Visit Provider Nurse Practitioner Family
DX: G57.02 Lesion of sciatic nerve, left lower limb (principal); M54.50 Low back pain, unspecified; G89.29 Other chronic pain; M51.36 Other intervertebral disc degeneration, lumbar region
CPT/HCPCS: 99202; G0463

== ENCOUNTER 2023-09-13 14:01 | Day surgery (SDC) | payer MEDICARE, BC, SELFPAY ==
[2023-09-13 14:13] VITALS: BP 152/88; PULSE 80; RESP 18; TEMP 36.7; O2SAT 96; BMI 33.3
--- NOTE | 2023-09-13 14:30 | EXP.PAIN.PRO ---
Procedure Date: 09/13/23 Time: 14:30 Anesthesiologist:: Anibal Benitez CRNA Complications:: None Pre-procedure Diagnosis:: Left piriformis syndrome. Post-procedure Diagnosis:: Same. Indications for Procedure:: Patient is a very pleasant 67-year-old male that comes our clinic today reporting 7 to 8-month history of left buttock pain. 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 He reports left buttock pain while sitting essentially on any type surface. However, he does report times during the day when standing and/or walking it is not painful. He rates his pain 7/10. Procedure Details:: Details of the procedure explained to the patient. The patient taken to procedure room placed in the prone position on the fluoroscopy table. The area over the left buttock was cleaned using chlorhexidine as a cleansing solution. Using a fluoroscopy guidance a 3 and half inch 22-gauge spinal needle was used to access the left lateral portion of the piriformis muscle. Needle position was confirmed using 0.25 mL injected into the piriformis with a lateral spread noted. After negative aspiration 4 cc 1% lidocaine +4 disease of 0.25% Marcaine +40 mg of Depo-Medrol was injected. Patient tolerated procedure without difficulty. There are no complications. Plan and Disposition:: Patient was discharged without incident.
[2023-09-13 14:34] VITALS: BP 153/75; PULSE 75; RESP 18; O2SAT 96
[2023-09-13 14:38] VITALS: BP 147/89; PULSE 79; RESP 18; O2SAT 97
[2023-09-13] MEDS: methylPREDNISolone ACETATE 80MG/ML VIAL 80 MG (14:38)
[2023-09-13] MEDS: LIDOCAINE 1% 5ML PF VIAL 5 ML (14:38)
[2023-09-13] MEDS: BUPIVACAINE 0.25% 10ML INJ 25 MG IJ (14:38)
[2023-09-13 14:42] VITALS: BP 147/89; PULSE 79; RESP 18; O2SAT 98
== END 2023-09-13 14:34 | disposition home or self-care (01) ==
PROVIDERS: PCP Nurse Practitioner Family; Visit Provider Nurse Anesthetist, Certified Registered
DX: G57.02 Lesion of sciatic nerve, left lower limb (principal); M79.18 Myalgia, other site
CPT/HCPCS: 20552; 77002; J1040

== ENCOUNTER 2023-09-23 06:50 | Outpatient (CLI) | payer MEDICARE, BC, SELFPAY ==
--- NOTE | 2023-09-23 06:54 | CT_ITS ---
FINAL REPORT TECHNIQUE: Axial images were obtained from the lung apex to the mid abdomen by computed tomography. This study was performed with techniques to keep radiation doses as low as reasonably achievable (ALARA). Individualized dose reduction techniques using automated exposure control or adjustment of mA and/or kV according to the patient's size were employed. CLINICAL HISTORY: TOBACCO USE. smoker 1.5 ppd x 50 years COMPARISON: 12/04/2021 FINDINGS: CHEST CT LOW DOSE CTDI vol (mGy): 2.90 DLP (mGy-cm): 107.86 There is no axillary adenopathy. There is an 18 mm presumed lymph node in the anterior mediastinum, stable. This is best seen on image 59. The heart is normal in size. There is no pericardial or pleural effusion. Pleural-based nodule in the left lower lobe measures 6 mm is stable since prior. This is well seen on image 57. There is a calcified granuloma in the lingula. Limited images of the upper abdomen reveal a low-attenuation hepatic mass which is stable but nonspecific. Bilateral nonobstructing renal stones are noted. IMPRESSION: Stable pulmonary nodules as detailed above. Lung RADS category 2. Recommend 12 month follow-up low-dose chest CT. Reviewed, Interpreted and Dictated by John Victor III, MD Transcribed by Itzel Santillan Authenticated and . [facility]
== END 2023-09-23 23:59 ==
LOC: RAD 06:50
PROVIDERS: PCP Nurse Practitioner Family; Visit Provider Nurse Practitioner Family
DX: Z87.891 Personal history of nicotine dependence (principal); Z12.2 Encounter for screening for malignant neoplasm of respiratory organs
CPT/HCPCS: 71271

== ENCOUNTER 2024-01-06 11:35 | Outpatient (POV) | payer MEDICARE, BC, SELFPAY ==
--- NOTE | 2024-01-06 11:48 | EXP.PAIN.SOA ---
[facility] Pain Management SOAP Note Subjective:: Patient is a pleasant 68-year-old male who presents today for follow-up. Today he rates his pain a 5 out of 10. Patient denies any new trauma or injury. Patient states he continues to have left buttocks pain. Patient did previously get a left piriformis injection back in August that did provide upwards of 90% relief lasting approximately 3 weeks. Patient states that it has completely worn off and that the pain is getting back to where it is an aching, throbbing sensation that is worse with increased activity or prolonged sitting. He states the pain is starting to interfere with his ability perform activities of daily living again. Patient does state in depth with the injection and made it so much more functional with decreased overall pain that he would like to see about getting this injection again. He does state that the compounded cream is helping and that he still uses the Advil to help keep it down. His Francisco has been reviewed and is appropriate. He is prescribed gabapentin from an outside provider. Review of Systems: General: No recent weight changes, no fever, no sleep disturbances Respiratory: No cough, no shortness of air, no recurring pulmonary infections Cardiovascular/peripheral vascular: No chest pain, no palpitations, no edema, no shortness of breath Gastrointestinal: No new onset incontinence, normal bowel movements reported Genitourinary: No new onset incontinence Musculoskeletal: Left buttocks pain Psychiatric: [Normal mood/affect] Neurological: [Denies weakness in extremities], [denies balance issues] Objective:: Physical Exam: General: Alert and oriented x3, no acute distress, pleasant and cooperative Lungs: Respirations even and unlabored, symmetrical chest expansion Eyes: PERRL Musculoskeletal: Flexion and extension of lumbar [spine] somewhat guarded secondary to pain, [antalgic gait noted] point tenderness along left piriformis muscle Neurological: Speech clear, no gross sensory deficit Assessment:: Low back pain, left piriformis syndrome, left buttocks pain Plan:: Patient is experiencing worsening pain all along his left buttocks with point tenderness at the piriformis muscle on the left side. I have discussed with patient since he had such significant relief of upwards of 90% lasting 3 weeks with his last piriformis injection that he may benefit from repeat injection. Risk and benefits were discussed with the patient and he would like to proceed forward with this plan of care. Patient has tried and failed conservative therapy including continued stretching and exercises at home between injections. We will schedule the patient for his second left piriformis muscle injection. Patient has been instructed to contact the clinic with any concerns before the next appointment. Dr. Crouch has reviewed this note and agrees with this plan of care. This note was dictated using voice recognition software and make contain errors or omissions. [facility] Disclaimer: The information contained in this section may have been updated after the patient was seen, as this information can be updated by other users. Medical History Enlarged prostate Hernia Surgical History History of surgery History of surgery Family History Father Throat cancer Social History Smoking Status: Current every day smoker tobacco type: cigarettes packs per day: 2 years smoked: 50 second hand exposure: No alcohol intake: never counseling provided: provider counseling substance use type: denies use current occupational status: other Travel in the last 8 weeks: None household members: spouse housing: house current occupation: [employer] current occupational exposures/hazards: No caffeine: Yes
[2024-01-06 12:18] VITALS: BP 150/70; PULSE 80; RESP 18; O2SAT 97; BMI 32.1
== END 2024-01-06 23:59 | disposition home or self-care (01) ==
LOC: SC.PAIN 11:36
PROVIDERS: PCP Nurse Practitioner Family; Visit Provider Nurse Practitioner Family
DX: G57.02 Lesion of sciatic nerve, left lower limb (principal); M79.18 Myalgia, other site; M54.50 Low back pain, unspecified
CPT/HCPCS: 99212; G0463

== ENCOUNTER 2024-01-31 11:01 | Day surgery (SDC) | payer MEDICARE, BC, SELFPAY ==
[2024-01-31 11:07] VITALS: BP 122/63; PULSE 77; RESP 18; O2SAT 97
[2024-01-31] MEDS: BUPIVACAINE 0.25% 10ML INJ 25 MG IJ (11:10)
[2024-01-31] MEDS: LIDOCAINE 1% 5ML PF VIAL 5 ML (11:10)
[2024-01-31 11:12] VITALS: BP 137/75; PULSE 75; RESP 18; TEMP 36.6; O2SAT 96; BMI 32.1
--- NOTE | 2024-01-31 11:26 | P.PCN_ITS ---
Procedure Date: 01/31/24 Time: 11:20 Anesthesiologist:: Anibal Benitez CRNA Complications:: None Pre-procedure Diagnosis:: Left piriformis syndrome Post-procedure Diagnosis:: Same Indications for Procedure:: Patient is a pleasant 68-year-old male comes our clinic today for repeat left piriformis injection. Patient reports 2 to 3 weeks of complete relief in terms of his left buttock pain following previous injection in the left piriformis. He rates his pain today 6/10. Procedure Details:: Details of the procedure explained to the patient. The patient taken procedure room placed in the prone position on the fluoroscopy table. The area over the left buttock was cleansed using chlorhexidine's cleansing solution. Using a 3 and half inch 22-gauge inch and half needle and fluoroscopy guidance the left piriformis muscle was accessed with ease. Needle position was confirmed using 0.5 mL of contrast dye and a lateral spread. At this time after negative aspiration 3 cc of 1% lidocaine +3 cc 0.25% Marcaine and 40 mg of Depo-Medrol w as injected. Patient tolerated procedure without difficulty. There are no complications. Plan and Disposition:: Patient was discharged without incident.
[2024-01-31] MEDS: IOPAMIDOL-200 (41%);10ML VIAL 10 ML IV (11:29)
[2024-01-31 11:34] VITALS: BP 165/82; PULSE 74; RESP 16; O2SAT 96
== END 2024-01-31 11:35 | disposition home or self-care (01) ==
PROVIDERS: PCP Nurse Practitioner Family; Visit Provider Nurse Anesthetist, Certified Registered
DX: G57.02 Lesion of sciatic nerve, left lower limb (principal); M79.18 Myalgia, other site
CPT/HCPCS: 20552; 77002; J1010; Q9966

== ENCOUNTER 2024-02-27 14:45 | Outpatient (POV) | payer MEDICARE, BC, SELFPAY ==
--- NOTE | 2024-02-27 15:26 | A.OFFVIS_ITS ---
[facility] Disclaimer: The information contained in this section may have been updated after the patient was seen, as this information can be updated by other users. Medical History Enlarged prostate Hernia Surgical History History of surgery History of surgery Family History Father Throat cancer Social History Smoking Status: Current every day smoker tobacco type: cigarettes packs per day: 2 years smoked: 50 second hand exposure: No alcohol intake: never counseling provided: provider counseling substance use type: denies use current occupational status: other Travel in the last 8 weeks: None household members: spouse housing: house current occupation: [employer] current occupational exposures/hazards: No caffeine: Yes PM Subjective & Objective Subjective Subjective:: Patient is a pleasant 68-year-old male who presents today for follow-up of left piriformis injection on 01/31/2024. Today he rates his pain a 7 out of 10. Patient denies any new trauma or injury. He does state that this injection only lasted about a day and a half and provided about 50% relief. He does state that he is right back to his baseline. He states the pain is all in and around his left buttocks area and is constant. He does state the pain interferes with his ability to perform activities of daily living such as cooking and cleaning. Patient does state that he will still occasionally use his compounded cream however he is found that Vicks vapor rub seems to work better. Patient is interested in any help we may be able to provide. His Francisco has been reviewed and is appropriate. Review of Systems: General: No recent weight changes, no fever, no sleep disturbances Respiratory: No cough, no shortness of air, no recurring pulmonary infections Cardiovascular/peripheral vascular: No chest pain, no palpitations, no edema, no shortness of breath Gastrointestinal: No new onset incontinence, normal bowel movements reported Genitourinary: No new onset incontinence Musculoskeletal: Low back pain, left buttocks pain Psychiatric: [Normal mood/affect] Neurological: [Denies weakness in extremities], [denies balance issues] Pain at rest (0-10 scale): 7 Objective Objective:: Physical Exam: General: Alert and oriented x3, no acute distress, pleasant and cooperative Lungs: Respirations even and unlabored, symmetrical chest expansion Eyes: PERRL Musculoskeletal: Flexion and extension of lumbar [spine] somewhat guarded secondary to pain, [antalgic gait noted] point tenderness along left piriformis muscle Neurological: Speech clear, no gross sensory deficit Has patient had previous pain injection?: Yes Percent improvement in pain since last injection: 50% lasting a day and a half Conservative treatment options previously tried: Home exercise plan Length of treatment: Longer than 6 weeks Meds Home Medications and Allergies Home Medications Medication Instructions Recorded Confirmed Type aspirin 81 mg chewable tablet 81 mg PO DAILY blood thinner 08/15/17 01/31/24 History atorvastatin 40 mg tablet 40 mg PO HS Cholesterol 03/07/18 01/31/24 History finasteride 5 mg tablet 5 mg PO DAILY bph 09/03/22 01/31/24 History gabapentin 400 mg capsule 400 mg PO TID neuropathy 09/03/22 01/31/24 History hydrocodone 5 mg-acetaminophen 325 1 tab PO TID #10 tabs 09/03/22 01/31/24 Rx mg tablet meloxicam 7.5 mg tablet 7.5 mg PO DAILY Arthritis 09/03/22 01/31/24 History New Prescriptions to Start Prescriptions: Allergies Allergy/AdvReac Type Severity Reaction Status Date / Time No Known Allergies Allergy Verified 09/13/23 14:15 Assessment and Plan *Assessment and plan (1) Degenerative disc disease, lumbar: Status: Acute Category: Medical Code(s): M51.36 - Other intervertebral disc degeneration, lumbar region (2) Low back pain: Status: Acute Qualifiers: Chronicity: chronic Back pain laterality: left Sciatica presence: without sciatica Qualified Code(s): M54.50 - Low back pain, unspecified; G89.29 - Other chronic pain Category: Medical Code(s): M54.50 - Low back pain, unspecified (3) Piriformis syndrome of left side: Status: Acute Category: Medical Code(s): G57.02 - Lesion of sciatic nerve, left lower limb Plan Patient is experiencing significant pain throughout his left buttocks area and low back. I have discussed with the patient that he may benefit from a muscle relaxer for possible anti-inflammatory medication. Patient has been tried on meloxicam 7.5 mg daily in the past and denies any side effects from this medication. Patient does deny any heart or kidney issues and denies seeing any cardiology on a regular basis. I have counseled the patient that I will send in a temporary dose of diclofenac 75 mg twice daily and baclofen 10 mg 3 times daily. Patient will return to clinic in 2 weeks for reevaluation of symptoms and plan of care. Patient has been instructed to contact the clinic with any concerns before the next appointment. Dr. Crouch has reviewed this note and agrees with this plan of care. This note was dictated using voice recognition software and make contain errors or omissions.
[2024-02-27 15:44] VITALS: BP 114/69; PULSE 84; RESP 18; O2SAT 96; BMI 32.1
== END 2024-02-27 23:59 | disposition home or self-care (01) ==
PROVIDERS: PCP Nurse Practitioner Family; Visit Provider Nurse Practitioner Family
DX: M51.36 Other intervertebral disc degeneration, lumbar region (principal); M54.50 Low back pain, unspecified; G89.29 Other chronic pain; G57.02 Lesion of sciatic nerve, left lower limb
CPT/HCPCS: 99212; G0463

== ENCOUNTER 2024-03-14 12:58 | Outpatient (POV) | payer MEDICARE, BC, SELFPAY ==
[2024-03-14 13:17] VITALS: BP 109/55; PULSE 79; RESP 18; O2SAT 94
--- NOTE | 2024-03-14 13:53 | EXP.PAIN.SOA ---
[facility] Disclaimer: The information contained in this section may have been updated after the patient was seen, as this information can be updated by other users. Medical History Enlarged prostate Hernia Surgical History History of surgery History of surgery Family History Father Throat cancer Social History Smoking Status: Current every day smoker tobacco type: cigarettes packs per day: 2 years smoked: 50 second hand exposure: No alcohol intake: never counseling provided: provider counseling substance use type: denies use current occupational status: other Travel in the last 8 weeks: None household members: spouse housing: house current occupation: [employer] current occupational exposures/hazards: No caffeine: Yes PM Subjective & Objective Subjective Subjective:: Patient is a pleasant 68-year-old male who presents today for medication refill and follow-up. Today he rates his pain 5 out of 10. Patient denies any new trauma or injury. At our last visit he was prescribed diclofenac 75 mg twice a day and baclofen 10 mg 3 times a day. He does state that this combination did significantly improve his overall pain symptoms. He does state that it is much better and he has been able to increase his activity with decreased pain symptoms. Patient was tried on previous injections that were provided improvement however often very temporary. Patients Francisco has been reviewed and is appropriate. Review of Systems: General: No recent weight changes, no fever, no sleep disturbances Respiratory: No cough, no shortness of air, no recurring pulmonary infections Cardiovascular/peripheral vascular: No chest pain, no palpitations, no edema, no shortness of breath Gastrointestinal: No new onset incontinence, normal bowel movements reported Genitourinary: No new onset incontinence Musculoskeletal: Buttocks pain Psychiatric: [Normal mood/affect] Neurological: [Denies weakness in extremities], [denies balance issues] Pain at rest (0-10 scale): 5 Objective Objective:: Physical Exam: General: Alert and oriented x3, no acute distress, pleasant and cooperative Lungs: Respirations even and unlabored, symmetrical chest expansion Eyes: PERRL Musculoskeletal: Flexion and extension of lumbar [spine] somewhat guarded secondary to pain, [antalgic gait noted] Neurological: Speech clear, no gross sensory deficit Has patient had previous pain injection?: No Conservative treatment options previously tried: Home exercise plan Length of treatment: Longer than 6 weeks Meds Home Medications and Allergies Home Medications ?Medication ?Instructions ?Recorded ?Confirmed ?Type aspirin 81 mg chewable tablet 81 mg PO DAILY blood thinner 08/15/17 02/27/24 History atorvastatin 40 mg tablet 40 mg PO HS Cholesterol 03/07/18 02/27/24 History finasteride 5 mg tablet 5 mg PO DAILY bph 09/03/22 02/27/24 History gabapentin 400 mg capsule 400 mg PO TID neuropathy 09/03/22 02/27/24 History hydrocodone 5 mg-acetaminophen 325 1 tab PO TID #10 tabs 09/03/22 02/27/24 Rx mg tablet baclofen 10 mg tablet 10 mg PO TID #42 tabs 02/27/24 03/14/24 Rx diclofenac sodium 75 mg 75 mg PO BID #28 tabs 02/27/24 03/14/24 Rx tablet,delayed release New Prescriptions to Start Prescriptions: Allergies Allergy/AdvReac Type Severity Reaction Status Date / Time No Known Allergies Allergy Verified 09/13/23 14:15 Assessment and Plan *Assessment and plan (1) Degenerative disc disease, lumbar: Status: Acute Category: Medical Code(s): M51.36 - Other intervertebral disc degeneration, lumbar region (2) Low back pain: Status: Acute Qualifiers: Chronicity: chronic Back pain laterality: left Sciatica presence: without sciatica Qualified Code(s): M54.50 - Low back pain, unspecified; G89.29 - Other chronic pain Category: Medical Code(s): M54.50 - Low back pain, unspecified (3) Piriformis syndrome of left side: Status: Acute Category: Medical Code(s): G57.02 - Lesion of sciatic nerve, left lower limb Plan I will refill the patient's baclofen and diclofenac and provide a 3-month supply of these medications. Patient will return to clinic in 3 months for reevaluation of symptoms and plan of care. Patient has been instructed to contact the clinic with any concerns before the next appointment. Dr. Crouch has reviewed this note and agrees with this plan of care. This note was dictated using voice recognition software and make contain errors or omissions. All injections are used with Lidocaine or Bupivacaine and Depo Medrol.
== END 2024-03-14 23:59 | disposition home or self-care (01) ==
PROVIDERS: PCP Nurse Practitioner Family; Visit Provider Nurse Practitioner Family
DX: M51.36 Other intervertebral disc degeneration, lumbar region (principal); M54.50 Low back pain, unspecified; G89.29 Other chronic pain; G57.02 Lesion of sciatic nerve, left lower limb; F17.210 Nicotine dependence, cigarettes, uncomplicated
CPT/HCPCS: 99212; G0463

== ENCOUNTER 2024-04-09 10:48 | Outpatient (CLI) | payer MEDICARE, BC, SELFPAY ==
--- NOTE | 2024-04-09 10:51 | CA_ITS ---
FINAL REPORT TECHNIQUE: Ultrasound images of the deep venous system were obtained from the left groin to the calf veins. CLINICAL HISTORY: PAIN LT CALF,NKI FINDINGS: The deep venous system is normally compressible. Normal flow is identified. IMPRESSION: No evidence of left lower extremity DVT. Reviewed, Interpreted and Dictated by Sinan Cedeño MD Transcribed by Keira Cardoso Authenticated and [facility]
== END 2024-04-09 23:59 | disposition home or self-care (01) ==
LOC: RT 10:50
PROVIDERS: PCP Nurse Practitioner Family; Visit Provider Nurse Practitioner Family
DX: M79.605 Pain in left leg (principal); I83.92 Asymptomatic varicose veins of left lower extremity; R60.9 Edema, unspecified
CPT/HCPCS: 93971

== ENCOUNTER 2024-04-23 11:08 | Outpatient (CLI) | payer MEDICARE, BC, SELFPAY ==
--- NOTE | 2024-04-23 11:16 | XR_ITS ---
FINAL REPORT CLINICAL HISTORY: PAIN IN LEFT LOWER LEG FINDINGS: LEFT TIBIA AND FIBULA AP and lateral views were obtained. There are chronic tibial and fibular fractures. An intramedullary gina is seen in the tibia. There is no acute fracture or dislocation. The joint spaces are intact. A plantar calcaneal spur is noted. There is no soft tissue abnormality. IMPRESSION: No acute fracture Reviewed, Interpreted and Dictated by John Victor III, MD Transcribed by Keira Cardoso Authenticated and [facility]
== END 2024-04-23 23:59 | disposition home or self-care (01) ==
LOC: RAD 11:11
PROVIDERS: PCP Nurse Practitioner Family; Visit Provider Nurse Practitioner Family
DX: M79.662 Pain in left lower leg (principal)
CPT/HCPCS: 73590

== ENCOUNTER 2024-05-28 09:32 | Outpatient (CLI) | payer MEDICARE, BC, SELFPAY ==
--- NOTE | 2024-05-28 | MR_ITS ---
FINAL REPORT CLINICAL HISTORY: low back pain, no known injury left side is worse FINDINGS: Multiplanar MR imaging of the lumbar spine was performed without contrast. On the sagittal T2-weighted images, there is abnormal decreased signal at the L3-4 and L4-5 disc levels. The lumbar vertebrae are of normal height. The vertebral alignment is normal. There is a 40% loss of height of the superior endplate at the T12 vertebral body. There is no edema. T11-T12: There is no significant canal stenosis or neuroforaminal narrowing. T12-L1: There is no significant canal stenosis or neuroforaminal narrowing. L1-2: There is no significant canal stenosis or neural foraminal narrowing. L2-3: There is no significant canal stenosis or neural foraminal narrowing. L3-4: There is mild bilateral facet hypertrophy with mild bilateral neuroforaminal narrowing. L4-5: There is a mild diffuse disc bulge with bilateral facet hypertrophy. There is mild spondylolisthesis of L4 on L5. There is moderate to high-grade bilateral neuroforaminal narrowing. L5-S1: There is a mild diffuse disc bulge and mild bilateral neuroforaminal narrowing. IMPRESSION: Diffuse disc bulge at L4-5 with mild spondylolisthesis and facet hypertrophy resulting in moderate to high-grade bilateral neuroforaminal narrowing. Reviewed, Interpreted and Dictated by Sinan Cedeño MD Transcribed by Radha Redman Authenticated and [facility]
== END 2024-05-28 23:59 | disposition home or self-care (01) ==
LOC: RAD 09:32
PROVIDERS: PCP Nurse Practitioner Family; Visit Provider Nurse Practitioner Family
DX: M79.605 Pain in left leg (principal); M54.50 Low back pain, unspecified
CPT/HCPCS: 72148

== ENCOUNTER 2024-06-14 13:01 | Outpatient (POV) | payer MEDICARE, BC, SELFPAY ==
[2024-06-14 13:30] VITALS: BP 133/92; PULSE 77; RESP 18; O2SAT 95; BMI 33.3
--- NOTE | 2024-06-14 14:51 | EXP.PAIN.SOA ---
[facility] Disclaimer: The information contained in this section may have been updated after the patient was seen, as this information can be updated by other users. Medical History (Updated 05/15/24 @ 11:07 by MELONIE Valenzuela) Lumbar radiculopathy Enlarged prostate Hernia Surgical History History of surgery History of surgery Family History Father Throat cancer Social History Smoking Status: Current every day smoker tobacco type: cigarettes packs per day: 2 years smoked: 50 second hand exposure: No alcohol intake: never counseling provided: provider counseling substance use type: denies use current occupational status: retired Travel in the last 8 weeks: None household members: spouse housing: house current occupation: [employer] current occupational exposures/hazards: No caffeine: Yes PM Subjective & Objective Subjective Subjective:: Patient is a pleasant 68-year-old male who presents today for worsening pain. Today he rates his pain a 5 out of 10. He does state that he has been having more pain all along his low back with primarily more symptoms along the left lower extremity from his hip down. He does state this is a pins and needle sensation and denies any new trauma or injury. Patient has recently had updated MRI imaging. Patient does state the pain is interfering with his ability to perform activities of daily living such as cooking and cleaning. Patient does state that the pain is fairly constant. He is interested in any help we may be able to provide. Patient is currently managed with diclofenac 75 mg twice a day and baclofen 10 mg 3 times a day. He denies any side effects with this medication and denies any heart or kidney issues. He is prescribed gabapentin from an outside provider. His Francisco has been reviewed and is appropriate. Review of Systems: General: No recent weight changes, no fever, no sleep disturbances Respiratory: No cough, no shortness of air, no recurring pulmonary infections Cardiovascular/peripheral vascular: No chest pain, no palpitations, no edema, no shortness of breath Gastrointestinal: No new onset incontinence, normal bowel movements reported Genitourinary: No new onset incontinence Musculoskeletal: Low back pain, hip pain, numbness tingling left leg Psychiatric: [Normal mood/affect] Neurological: [Denies weakness in extremities], [denies balance issues] Pain at rest (0-10 scale): 5 Objective Objective:: Physical Exam: General: Alert and oriented x3, no acute distress, pleasant and cooperative Lungs: Respirations even and unlabored, symmetrical chest expansion Eyes: PERRL Musculoskeletal: Flexion and extension of lumbar [spine] somewhat guarded secondary to pain, [antalgic gait noted] Neurological: Speech clear, no gross sensory deficit FINDINGS: Multiplanar MR imaging of the lumbar spine was performed without contrast. On the sagittal T2-weighted images, there is abnormal decreased signal at the L3-4 and L4-5 disc levels. The lumbar vertebrae are of normal height. The vertebral alignment is normal. There is a 40% loss of height of the superior endplate at the T12 vertebral body. There is no edema. T11-T12: There is no significant canal stenosis or neuroforaminal narrowing. T12-L1: There is no significant canal stenosis or neuroforaminal narrowing. L1-2: There is no significant canal stenosis or neural foraminal narrowing. L2-3: There is no significant canal stenosis or neural foraminal narrowing. L3-4: There is mild bilateral facet hypertrophy with mild bilateral neuroforaminal narrowing. L4-5: There is a mild diffuse disc bulge with bilateral facet hypertrophy. There is mild spondylolisthesis of L4 on L5. There is moderate to high-grade bilateral neuroforaminal narrowing. L5-S1: There is a mild diffuse disc bulge and mild bilateral neuroforaminal narrowing. IMPRESSION: Diffuse disc bulge at L4-5 with mild spondylolisthesis and facet hypertrophy resulting in moderate to high-grade bilateral neuroforaminal narrowing. Reviewed, Interpreted and Dictated by Sinan Cedeño MD Transcribed by Radha Redman Authenticated and [facility] Has patient had previous pain injection?: No Conservative treatment options previously tried: Home exercise plan Length of treatment: Longer than 12 weeks Meds Home Medications and Allergies Home Medications ?Medication ?Instructions ?Recorded ?Confirmed ?Type aspirin 81 mg chewable tablet 81 mg PO DAILY blood thinner 08/15/17 06/14/24 History atorvastatin 40 mg tablet 40 mg PO HS Cholesterol 03/07/18 06/14/24 History finasteride 5 mg tablet 5 mg PO DAILY bph 09/03/22 06/14/24 History gabapentin 400 mg capsule 400 mg PO TID neuropathy 09/03/22 06/14/24 History hydrocodone 5 mg-acetaminophen 325 1 tab PO TID #10 tabs 09/03/22 06/14/24 Rx mg tablet baclofen 10 mg tablet 10 mg PO TID #90 tabs 03/14/24 06/14/24 Rx diclofenac sodium 75 mg 75 mg PO BID #60 tabs 03/14/24 06/14/24 Rx tablet,delayed release furosemide 20 mg tablet 20 mg PO DAILY 05/15/24 06/14/24 History tamsulosin 0.4 mg capsule 0.4 mg PO DAILY 05/15/24 06/14/24 History umeclidinium 62.5 mcg-vilanterol 1 inh inhalation DIRECTED 05/15/24 06/14/24 History 25 mcg/actuation powdr for inhalation (Anoro Ellipta) New Prescriptions to Start Prescriptions: Allergies Allergy/AdvReac Type Severity Reaction Status Date / Time No Known Allergies Allergy Verified 05/15/24 10:20 Assessment and Plan *Assessment and plan (1) Degenerative disc disease, lumbar: Status: Acute Category: Medical Code(s): M51.36 - Other intervertebral disc degeneration, lumbar region (2) Lumbar radiculopathy: Status: Acute Category: Medical Code(s): M54.16 - Radiculopathy, lumbar region Plan Patient is experiencing more numbness and tingling radiating down his entire left extremity. I did review over with the patient regarding his lumbar MRI and discussed where he does have more symptoms prominent at the L4-L5 level with moderate to high-grade bilateral neuroforaminal narrowing. I did discuss with the patient that I do believe he would benefit from a lumbar epidural at this location. Risk and benefits were discussed with the patient and he would like to proceed forward with this plan of care. Patient has previously had piriformis injections from our office and has not had any epidurals. Patient has tried and failed conservative therapy including continued at home stretching exercise for longer than 12 weeks. Patient will be refilled on his baclofen and diclofenac with a 3-month supply. Patient will be scheduled for an LESI L4-L5 under fluoroscopy. Patient has been instructed to contact the clinic with any concerns before the next appointment. Dr. Crouch has reviewed this note and agrees with this plan of care. This note was dictated using voice recognition software and make contain errors or omissions. All injections are used with Lidocaine or Bupivacaine and Depo Medrol.
== END 2024-06-14 23:59 | disposition home or self-care (01) ==
PROVIDERS: PCP Nurse Practitioner Family; Visit Provider Nurse Practitioner Family
DX: M54.16 Radiculopathy, lumbar region (principal); M51.360 Other intervertebral disc degeneration, lumbar region with discogenic back pain only
CPT/HCPCS: 99212; G0463

== ENCOUNTER 2024-06-14 21:07 | Emergency (ER) | payer MEDICARE, BC, SELFPAY ==
--- NOTE | 2024-06-14 21:14 | XR_ITS ---
PROCEDURE INFORMATION: Exam: XR Chest Exam date and time: 06/14/2024 9:23 PM Age: 68 years old Clinical indication: Cough; Additional info: Cough, dyspnea TECHNIQUE: Imaging protocol: Radiologic exam of the chest. Views: 1 view. COMPARISON: CT LUNG SCREENING 09/23/2023 7:01 AM FINDINGS: Lungs: Subtle interstitial haziness could reflect interstitial pneumonia. No consolidation. Pleural spaces: Unremarkable. No pleural effusion. No pneumothorax. Heart/Mediastinum: Cardiomegaly Bones/joints: Unremarkable. IMPRESSION: Subtle interstitial haziness could reflect interstitial pneumonia.
--- NOTE | 2024-06-14 21:15 | ED_ITS ---
<Statement entered by Evan Pacheco MD - 06/14/24 23:04> I was consulted by the DWAYNE, and we discussed the complexity of the problems being addressed. I approved the treatment and management plan for this patient's care in the emergency department, thus performing a substantive portion of the medical decision making. Evan Pacheco MD Discharge Plan Disposition Patient Disposition: Home, Self-Care Condition: Good Prescriptions Prescriptions: New prednisone 50 mg tablet 50 mg PO DAILY 5 Days Qty: 5 0RF doxycycline hyclate 100 mg capsule 100 mg PO BID 10 Days Qty: 20 0RF No Action tamsulosin 0.4 mg capsule 0.4 mg PO DAILY furosemide 20 mg tablet 20 mg PO DAILY Anoro Ellipta 62.5-25 mcg/actuation blister with device 1 inh inhalation DIRECTED hydrocodone-acetaminophen 5-325 mg tablet 1 tab PO TID Qty: 10 0RF aspirin 81 MG tablet,chewable 81 mg PO DAILY gabapentin 400 mg capsule 400 mg PO TID finasteride 5 mg tablet 5 mg PO DAILY atorvastatin 40 MG tablet 40 mg PO HS baclofen 10 mg tablet 10 mg PO TID Qty: 90 2RF diclofenac sodium 75 mg tablet,delayed release (DR/EC) 75 mg PO BID Qty: 60 2RF Referrals Follow up/Referrals: Elle Sal APRN [Primary Care Provider] - See instructions Activity Restrictions/Add. Instructions Additional Instructions/Restrictions: Follow-up with your PCP within 48 hours. Take all antibiotics till they are gone. Return to the emergency department for any worsening signs or symptoms as needed. Continue utilizing your home inhalers as normal. Clinical Impressions Clinical Impression: Acute exacerbation of chronic obstructive pulmonary disease Pneumonia Qualifiers: Pneumonia type: due to unspecified organism Print Language Print Language: Telugu Discharge ED Provider: Evan Pacheco General Adult HPI <MELONIE Gonzalez - Last Filed: 06/14/24 22:55> General Chief complaint: Shortness of Breath/Dyspnea Stated complaint: Cough,chest congestion Time Seen by Provider: 06/14/24 21:11 History of Present Illness HPI narrative: Patient presents for evaluation of shortness of breath. Patient has a past medical history of ongoing smoking but denies a history of known lung disease however he is on Trelegy atorvastatin Lasix hydrocodone gabapentin tamsulosin. He reports that he has been feeling bad for 2 weeks however in the last 24 hours has had significant dyspnea. He has utilized his home remedies without relief and hence presented for evaluation. He reports nasal congestion and nonproductive cough but no fever chills hemoptysis hematochezia melena nausea vomit diarrhea. Related Data Home Medications ?Medication ?Instructions ?Recorded ?Confirmed aspirin 81 mg chewable tablet 81 mg PO DAILY blood thinner 08/15/17 06/14/24 atorvastatin 40 mg tablet 40 mg PO HS Cholesterol 03/07/18 06/14/24 finasteride 5 mg tablet 5 mg PO DAILY bph 09/03/22 06/14/24 gabapentin 400 mg capsule 400 mg PO TID neuropathy 09/03/22 06/14/24 furosemide 20 mg tablet 20 mg PO DAILY 05/15/24 06/14/24 tamsulosin 0.4 mg capsule 0.4 mg PO DAILY 05/15/24 06/14/24 umeclidinium 62.5 mcg-vilanterol 1 inh inhalation DIRECTED 05/15/24 06/14/24 25 mcg/actuation powdr for inhalation (Anoro Ellipta) Previous Rx's ?Medication ?Instructions ?Recorded hydrocodone 5 mg-acetaminophen 325 1 tab PO TID #10 tabs 09/03/22 mg tablet baclofen 10 mg tablet 10 mg PO TID #90 tabs 06/14/24 diclofenac sodium 75 mg 75 mg PO BID #60 tabs 06/14/24 tablet,delayed release doxycycline hyclate 100 mg capsule 100 mg PO BID 10 days #20 caps 06/14/24 prednisone 50 mg tablet 50 mg PO DAILY 5 days #5 tabs 06/14/24 Allergies Allergy/AdvReac Type Severity Reaction Status Date / Time No Known Allergies Allergy Verified 06/14/24 21:21 [facility] <MELONIE Gonzalez - Last Filed: 06/14/24 22:55> [facility] Disclaimer: The information contained in this section may have been updated after the patient was seen, as this information can be updated by other users. Medical History (Updated 06/14/24 @ 22:48 by MELONIE Gonzalez) Lumbar radiculopathy Enlarged prostate Hernia Surgical History History of surgery History of surgery Family History Father Throat cancer Social History Smoking Status: Current every day smoker tobacco type: cigarettes packs per day: 2 years smoked: 50 second hand exposure: No alcohol intake: never counseling provided: provider counseling substance use type: denies use current occupational status: retired Travel in the last 8 weeks: None household members: spouse housing: house current occupation: [employer] current occupational exposures/hazards: No caffeine: Yes Other Medical History Have you received the Flu Vaccine for this season: No Have you received the Pneumonia Vaccine: No <MELONIE Gonzalez - Last Filed: 06/14/24 22:55> ROS Obtained: Yes Systems reviewed as appropriate & no additional complaints except as documented Physical Exam <MELONIE Gonzalez - Last Filed: 06/14/24 22:55> General General appearance: alert Respiratory Respiratory exam: Present wheezes; Absent normal lung sounds bilaterally Cardiovascular Cardiovascular exam: Present regular rate Neurological Exam Neurological exam: Present alert and oriented X3 Medical Decision Making <MELONIE Gonzalez - Last Filed: 06/14/24 22:55> Medical Records Medical records reviewed: Yes I reviewed the patient's medical records. Screening: Per USPSTF and CDC recommendations, given the prevalence of disease in our region, it is our hospital?s policy to screen for HIV and viral Hepatitis for all patients aged 18 and over and those with ongoing risk factors. Francisco Inquiry Pt receiving controlled substance: No Vital Signs: 06/14/24 21:16 06/14/24 21:30 06/14/24 21:30 Temperature 97.8 F Temperature Source Oral Pulse Rate 74 72 Pulse Rate [Right Brachial] 74 Respiratory Rate 19 Blood Pressure [Right Arm] 159/89 H Blood Pressure Mean [Right Arm] 112 Blood Pressure Source [Right Arm] Automatic Cuff Blood Pressure Position [Right Arm] Sitting 02 Sat by Pulse Oximetry 95 Oxygen Delivery Method Room Air Lab Data Lab results reviewed: Yes I reviewed the patient's lab results. Lab Results 06/14/24 21:11: SARS-CoV-2 (PCR) Not detected, Influenza A Untype (PCR) Not detected, Influenza Type B (PCR) Not detected 06/14/24 21:15: VBG pH 7.36, VBG pCO2 49.7, VBG pO2 37.2, VBG HCO3 27.3, VBG Total CO2 28.8 H, VBG O2 Saturation 75.0 H, VBG Base Excess 1.8, VBG Lactic Acid 1.2 06/14/24 21:38: WBC 4.5 L, RBC 5.31, Hgb 16.3, Hct 49.8, MCV 93.8, MCH 30.6, MCHC 32.6, RDW 13.4, Plt Count 119 L, MPV 8.9, Neut % (Auto) 57.3, Lymph % (Auto) 26.1, Calhoun % (Auto) 8.9, Eos % (Auto) 5.8, Baso % (Auto) 2.0, Neut # (Auto) 2.6, Lymph # (Auto) 1.2, Calhoun # (Auto) 0.4, Eos # (Auto) 0.3, Baso # (Auto) 0.1, Sodium 141, Potassium 4.3, Chloride 106, Carbon Dioxide 27, Anion Gap 12.3, BUN 21 H, Creatinine 0.90, Estimated Creat Clear 112, Estimated GFR 84, Est GFR ( Amer) 101, Glucose 108 H, Calcium 8.7, Total Bilirubin 0.6, AST 28, ALT 34, Alkaline Phosphatase 77, Troponin I < 0.01, NT-Pro-B Natriuret Pep 539 H, Total Protein 6.8, Albumin 4.3, Globulin 2.5, Albumin/Globulin Ratio 1.7 06/14/24 21:38 06/14/24 21:38 Orders (Tests/Meds): ED MEDICATIONS Discontinued Medications Generic Name Dose Route Start Last Admin Trade Name Bradyq PRN Reason Stop Dose Admin Acetaminophen 1,000 mg 06/14/24 21:14 06/14/24 21:25 Acetaminophen 500mg Tab PO 06/14/24 21:15 1,000 mg ONCE ONE Administration Albuterol/Ipratropium 9 ml 06/14/24 21:14 06/14/24 21:26 Ipratropium/Albuterol 3 Ml Neb IH 06/14/24 21:15 9 ml ONCE ONE Administration Dexamethasone Sodium Phosphate 10 mg 06/14/24 21:14 06/14/24 21:26 Dexamethasone 4mg/Ml 5ml Mdv IV 06/14/24 21:15 10 mg ONCE ONE Administration Doxycycline Hyclate 100 mg 06/14/24 22:45 Doxycycline Hycl 100 Mg Tablet PO 06/14/24 22:46 ONCE ONE Ketorolac Tromethamine 15 mg 06/14/24 21:14 06/14/24 21:25 Ketorolac 30mg/Ml Vial IV 06/14/24 21:15 15 mg ONCE ONE Administration ORDERS Category Date Time Status XR chest portable Stat Exams 06/14/24 21:14 Completed BNP [NT Pro Brain Natriuretic Pep.] Stat Lab 06/14/24 21:38 Completed CBC w/Auto Diff [Complete Blood Count Auto Diff] Stat Lab 06/14/24 21:38 Completed CMP [Comprehensive Metabolic Panel] Stat Lab 06/14/24 21:38 Completed Full Resp Panel w/COVID ([facility]) Routine Lab 06/14/24 22:46 Ordered Rapid PCR Covid and Flu A/B Stat Lab 06/14/24 21:11 Completed Trop I [Troponin I] Stat Lab 06/14/24 21:38 Completed Troponin I Q3H Lab 06/15/24 00:15 Ordered Troponin I Q3H Lab 06/15/24 03:15 Ordered VBG [Venous Blood Gas] Stat RT 06/14/24 21:15 Completed Medical Decision Narrative: In summary patient is a patient is a 68-year-old male who presents to the emergency department for evaluation of dyspnea and nonproductive cough. Patient is hemodynamically stable upon arrival, afebrile. Physical exam is remarkable for boggy nasal mucosa that is erythematous, erythematous posterior pharynx without exudate, bilateral end expiratory wheezes in all 4 winter but breath sounds are heard to bases. He has no increased work of breathing. Patient appears to be in normal sinus rhythm on the bedside monitor. He satting at 97% on room air currently. Differential diagnosis includes viral versus bacterial respiratory tract infection versus COPD exacerbation versus ACS etc. Initial workup will be conducted with hematologic labs COVID and flu swabs plain film chest x-ray twelve-lead EKG.. Initial interventions include acetaminophen DuoNeb Decadron. Initial workup reviewed by me shows his hematologic labs are nonactionable with a normal white count no shift, COVID flu swabs are negative, and my informal interpretation of his plain film chest x-ray actually shows diffuse groundglass opacities consistent with either atypical or viral pneumonia. Upon repeat evaluation patient reported significant improvement after initial intervention. Given this given this patient is appropriate and high risk enough to start the patient on prophylactic doxycycline for superimposed bacterial infection, continued steroids and follow-up with his PCP within 48 hours. Patient verbalized understanding and agreement. <Evan Pacheco MD - Last Filed: 06/14/24 22:30> Vital Signs: 06/14/24 21:16 06/14/24 21:30 06/14/24 21:30 Temperature 97.8 F Temperature Source Oral Pulse Rate 74 72 Pulse Rate [Right Brachial] 74 Respiratory Rate 19 Blood Pressure [Right Arm] 159/89 H Blood Pressure Mean [Right Arm] 112 Blood Pressure Source [Right Arm] Automatic Cuff Blood Pressure Position [Right Arm] Sitting 02 Sat by Pulse Oximetry 95 Oxygen Delivery Method Room Air Lab Data Lab Results 06/14/24 21:11: SARS-CoV-2 (PCR) Not detected, Influenza A Untype (PCR) Not detected, Influenza Type B (PCR) Not detected 06/14/24 21:15: VBG pH 7.36, VBG pCO2 49.7, VBG pO2 37.2, VBG HCO3 27.3, VBG Total CO2 28.8 H, VBG O2 Saturation 75.0 H, VBG Base Excess 1.8, VBG Lactic Acid 1.2 06/14/24 21:38: WBC 4.5 L, RBC 5.31, Hgb 16.3, Hct 49.8, MCV 93.8, MCH 30.6, MCHC 32.6, RDW 13.4, Plt Count 119 L, MPV 8.9, Neut % (Auto) 57.3, Lymph % (Auto) 26.1, Calhoun % (Auto) 8.9, Eos % (Auto) 5.8, Baso % (Auto) 2.0, Neut # (Auto) 2.6, Lymph # (Auto) 1.2, Calhoun # (Auto) 0.4, Eos # (Auto) 0.3, Baso # (Auto) 0.1, Sodium 141, Potassium 4.3, Chloride 106, Carbon Dioxide 27, Anion Gap 12.3, BUN 21 H, Creatinine 0.90, Estimated Creat Clear 112, Estimated GFR 84, Est GFR ( Amer) 101, Glucose 108 H, Calcium 8.7, Total Bilirubin 0.6, AST 28, ALT 34, Alkaline Phosphatase 77, Troponin I < 0.01, NT-Pro-B Natriuret Pep 539 H, Total Protein 6.8, Albumin 4.3, Globulin 2.5, Albumin/Globulin Ratio 1.7 Orders (Tests/Meds): ED MEDICATIONS Discontinued Medications Generic Name Dose Route Start Last Admin Trade Name Bradyq PRN Reason Stop Dose Admin Acetaminophen 1,000 mg 06/14/24 21:14 06/14/24 21:25 Acetaminophen 500mg Tab PO 06/14/24 21:15 1,000 mg ONCE ONE Administration Albuterol/Ipratropium 9 ml 06/14/24 21:14 06/14/24 21:26 Ipratropium/Albuterol 3 Ml Neb IH 06/14/24 21:15 9 ml ONCE ONE Administration Dexamethasone Sodium Phosphate 10 mg 06/14/24 21:14 06/14/24 21:26 Dexamethasone 4mg/Ml 5ml Mdv IV 06/14/24 21:15 10 mg ONCE ONE Administration Doxycycline Hyclate 100 mg 06/14/24 22:45 Doxycycline Hycl 100 Mg Tablet PO 06/14/24 22:46 ONCE ONE Ketorolac Tromethamine 15 mg 06/14/24 21:14 06/14/24 21:25 Ketorolac 30mg/Ml Vial IV 06/14/24 21:15 15 mg ONCE ONE Administration ORDERS Category Date Time Status XR chest portable Stat Exams 06/14/24 21:14 Completed BNP [NT Pro Brain Natriuretic Pep.] Stat Lab 06/14/24 21:38 Completed CBC w/Auto Diff [Complete Blood Count Auto Diff] Stat Lab 06/14/24 21:38 Completed CMP [Comprehensive Metabolic Panel] Stat Lab 06/14/24 21:38 Completed Full Resp Panel w/COVID ([facility]) Routine Lab 06/14/24 22:46 Ordered Rapid PCR Covid and Flu A/B Stat Lab 06/14/24 21:11 Completed Trop I [Troponin I] Stat Lab 06/14/24 21:38 Completed Troponin I Q3H Lab 06/15/24 00:15 Ordered Troponin I Q3H Lab 06/15/24 03:15 Ordered VBG [Venous Blood Gas] Stat RT 06/14/24 21:15 Completed ECG Data Tracing #1: Independently interpreted by me rate is 70, rhythm is regular, axis normal, no ST elevation in anatomical contiguous leads, QTc 437 Critical Care <MELONIE Gonzalez - Last Filed: 06/14/24 22:55> Critical Care Time Critical Care Time: No
[2024-06-14 21:16] VITALS: BP 159/89; PULSE 74; RESP 19; TEMP 36.6; O2SAT 95; BMI 32.1
[2024-06-14 21:19] LABS: Coronavirus 19, PCR Not Detected (NotDetected); Influenza A, PCR Not Detected (NotDetected); Influenza B, PCR Not Detected (NotDetected)
[2024-06-14] MEDS: KETOROLAC 30MG/ML VIAL 15 MG IV (21:25)
[2024-06-14] MEDS: ACETAMINOPHEN 500MG TAB 1000 MG PO (21:25)
[2024-06-14] MEDS: DEXAMETHASONE 4MG/ML 5ML MDV 10 MG IV (21:26)
[2024-06-14] MEDS: IPRATROPIUM/ALBUTEROL 3 ML NEB 9 ML IH (21:26)
[2024-06-14 21:30] VITALS: PULSE 72; PULSE 74
[2024-06-14 21:39] LABS: Lactate Venous 1.2 mmol/L (0.4-2.0); VBG Base Excess 1.8 mmol/L (-2.4-2.3); VBG HCO3 27.3 mmol/L (23-30); VBG PCO2 49.7 mmol/L (35-51); VBG PH 7.36 mmol/L (7.31-7.41); VBG PO2 37.2 mmol/L (28-40); VBG Total CO2 28.8 mmol/L (23-27)
[2024-06-14 21:48] LABS: Basophils # 0.1 K/mm3 (0-0.2); Eosinophils # 0.3 K/mm3 (0.0-0.4); Eosinophils % 5.8 % (0.1-12.0); Hematocrit 49.8 % (42.0-52.0); Hemoglobin 16.3 g/dL (14.1-18.0); Lymphocytes # 1.2 K/mm3 (0.7-4.5); Lymphocytes % 26.1 % (10-50); Mean Corpuscular HGB Conc 32.6 g/dL (31.8-35.4); Mean Corpuscular Hemoglobin 30.6 pg (27.0-31.2); Mean Corpuscular Volume 93.8 fl (80-94); Mean Platelet Volume 8.9 fl (7.4-10.4); Monocytes # 0.4 K/mm3 (0.1-1.0); Monocytes % 8.9 % (1.7-9.3); Neutrophils # 2.6 K/mm3 (1.8-7.8); Neutrophils % 57.3 % (37.0-80.0); Platelet Count 119 K/mm3 (142-424); Red Blood Count 5.31 M/mm3 (4.60-6.20); Red Cell Distribution Width 13.4 % (11.5-17.5); White Blood Count 4.5 K/mm3 (4.8-10.8)
[2024-06-14 22:16] LABS: Albumin Level 4.3 g/dl (3.5-5.0); Chloride 106 mmol/L (98-107)
[2024-06-14 22:17] LABS: Potassium 4.3 mmoL/L (3.5-5.1); Sodium 141 mmol/L (136-145)
[2024-06-14 22:19] LABS: Alanine Aminotransferase 34 U/L (12-78); Anion Gap 12.3 mEq/L (5-15); Aspartate Amino Transferase 28 U/L (17-59); Blood Urea Nitrogen 21 mg/dl (9-20); Carbon Dioxide 27 mmol/L (22.0-30.0); Creatinine Clearance Estimated 112 mL/min (50-200); Estimated Glomerular Filt Rate 84 ml/min (>60); GFR (African American) 101 ML/MIN (>60)
[2024-06-14 22:20] LABS: Albumin/Globulin Ratio 1.7 (1.1-1.8); Alkaline Phosphatase 77 U/L (38-126); Bilirubin,Total 0.6 mg/dl (0.2-1.3); Calcium 8.7 mg/dl (8.4-10.2); Globulin 2.5 g/dL (1.3-3.2); Glucose 108 mg/dl (74-100); Total Protein,Serum 6.8 g/dl (6.3-8.2)
--- NOTE | 2024-06-14 22:28 | ECG_ITS ---
APPROVED REPORT Exam: Resting ECG HR:70 bpm ECG Measurements Heart Rate 70 AXES [place] 148 P 77 QRSd 110 QRS 84 QT 416 T 39 QTc 437 Conclusion SINUS RHYTHM NORMAL ECG Electronically signed by : AMIRAH BRITO, 06/14/2024 23:23:22
[2024-06-14 22:29] LABS: NT Pro Brain Natriuretic Pep. 539 pg/mL (0-125)
[2024-06-14 22:33] LABS: Troponin I < 0.01 ng/ml (0.00-0.034)
[2024-06-14] MEDS: DOXYCYCLINE HYCL 100 MG TABLET PO (22:58)
[2024-06-14 23:04] VITALS: BP 134/80; PULSE 77; RESP 18; TEMP 36.5; O2SAT 96
== END 2024-06-14 23:06 | disposition home or self-care (01) ==
PROVIDERS: Physician Assistant; Emergency Provider Emergency Medicine; PCP Nurse Practitioner Family
DX: J44.1 Chronic obstructive pulmonary disease with (acute) exacerbation (principal); J18.9 Pneumonia, unspecified organism; M51.360 Other intervertebral disc degeneration, lumbar region with discogenic back pain only; M54.16 Radiculopathy, lumbar region; F17.210 Nicotine dependence, cigarettes, uncomplicated; Z79.899 Other long term (current) drug therapy
CPT/HCPCS: 71045; 80053; 82803; 83880; 84484; 85025; 87636; 93005; 99212; 99283; G0463; J1100; J1885; J7620

== ENCOUNTER 2024-06-26 14:59 | Outpatient (CLI) | payer MEDICARE, BC, SELFPAY ==
--- NOTE | 2024-06-26 15:01 | CA_ITS ---
APPROVED REPORT EXAM: Comprehensive 2D, Doppler, and color-flow Echocardiogram Supercharge Repair Supervisor: SHA Morales, RVS Ht: 6 ft 2 in Wt: 265lbs BSA: 2.45 BP: 159/89 mmHg Rhythm: irregular Indications: copd, smoker 2D Dimensions Left Atrium 4.07 cm M: 3.0 - 4.0 LA Volume 113.20 mL LA Volume Index [id number] mL/m2 (M/F) 16-34 M-Mode Dimensions RVDd 3.30 cm (0.9-2.6) LA Diam 5.70 cm (1.9-4.0) LVDd 7.28 cm (3.5-5.7) LVDs 5.01 cm (3.5-5.7) IVSd 1.03 cm (0.6-1.1) PWd 1.07 cm (0.6-1.1) EF (Teich) 51.60% EPSs 1.03 cm FS 27.20% EDV (Teich) 245.60 mL TAPSE 3.50 (<1.7) ESV (Teich) 118.80 mL LV Diastology E Decel Time 300 (160-240 msec) E/A Ratio 0.88 MED A' 8.80 cm/s LAT A' 11.60 cm/s Aortic Valve KONSTANTIN Index 0.31 cm2/m2 AoV Peak Camron. 272.0 (50-130 cm/s) AI PHT 791.00 ms AO Peak GR. 29.70 mmHg AO Mean GR. 16.90 (<5 mmHg) AO VTI 64.4 (18-25 cm) KONSTANTIN (VTI) 0.79 (2.5-4.5 cm2) Mitral Valve MV A Velocity 67.0 (40-130 cm/s) E/A Ratio 0.88 MV Mean Gr. 1.60 (<2mmHg) Pulmonary Valve PV Peak Velocity 110.0 (50-150 cm/s) Tricuspid Valve TR P. Velocity 210.00 cm/s RAP Estimate 10.00 mmHg RVSP 27.60 mmHg Left Ventricle The left ventricle is normal size. The left ventricular systolic function is normal. The left ventricular ejection fraction is within the normal range. There is increased LV wall thickness. There is normal LV segmental wall motion. Diastolic function is indeterminate. LVEF is 55%. Right Ventricle The right ventricle is normal size. The right ventricular systolic function is normal. Atria Left atrium is mildly dilated. Right atrium is mildly dilated. There is no Doppler evidence of interatrial shunt. Aortic Valve Aortic valve is mildly thickened. Moderate aortic stenosis is present. KONSTANTIN by continuity equation is 1.2 cm???. Peak velocity 2.9 m/s. Mean AV gradient 18 mmHg. Max AV gradient 32 mmHg. DI=0.29. Mild aortic regurgitation. Mitral Valve The mitral valve leaflets are mildly thickened. No evidence of mitral valve stenosis. Trace mitral regurgitation. Tricuspid Valve The tricuspid valve leaflets are thin and pliable. Mild tricuspid regurgitation. RVSP is 20 to 25 mmHg. Pulmonic Valve The pulmonary valve is normal in structure. Trace pulmonic regurgitation. Great Vessels The aortic root is normal in size. The ascending aorta is normal in size. IVC is normal in size and collapses >50% with inspiration. Pericardium There is no pericardial effusion. Other Information Study Quality: Fair Conclusion Normal biventricular systolic function. Mild biatrial dilation. Moderate (KONSTANTIN by continuity equation is 1.2 cm???. Peak velocity 2.9 m/s. Mean AV gradient 18 mmHg. Max AV gradient 32 mmHg. DI=0.29). Mild AI. In the setting of moderate , serial TTE evaluations every 6 months and clinical correlation are recommended. Electronically signed by : Carmen Pinon MD 07/02/2024 00:15:43
== END 2024-06-26 23:59 | disposition home or self-care (01) ==
LOC: RT 14:59
PROVIDERS: PCP Nurse Practitioner Family; Visit Provider Nurse Practitioner Family
DX: I35.0 Nonrheumatic aortic (valve) stenosis (principal); I51.7 Cardiomegaly; R06.09 Other forms of dyspnea
CPT/HCPCS: 93306

== ENCOUNTER 2024-07-17 11:12 | Day surgery (SDC) | payer MEDICARE, BC, SELFPAY ==
--- NOTE | 2024-07-17 11:33 | EXP.PAIN.PRO ---
Procedure Date: 07/17/24 Time: 11:30 Anesthesiologist:: Anibal Benitez CRNA Complications:: None Pre-procedure Diagnosis:: Degenerative disc lumbar spine multilevels. Lumbar radiculopathy. Lumbar disc bulge L4-5, L5-S1. Lumbar spondylosis. Multilevel lumbar facet arthropathy. Post-procedure Diagnosis:: Same. Indications for Procedure:: Patient is a pleasant 68-year-old male who comes our clinic today for lumbar epidural steroid injection. Patient describes low lumbar back pain is constant, dull, aching. Patient also reports left hip and leg radicular symptoms at times. He rates his pain 7/10. Procedure Details:: Procedure: Lumbar epidural steroid injection under fluoroscopy Informed consent was obtained and the risks and benefits of the procedure were explained to the patient. The patient was taken to the procedure room and noninvasive monitors placed, including noninvasive blood pressure cuff and pulse oximeter. The back was viewed using C-arm Fluoroscopy and prepped using Chloraprep as a cleansing solution and the L4-L5 interspace was palpated. Skin and subcutaneous tissues were anesthetized using lidocaine 1.5% and a 25-gauge needle. After this, an 18-gauge Touhy epidural needle was placed into the L4-L5 interspace and advanced using fluoroscopic guidance and loss of resistance to air until the epidural space was encountered. After confirmation of needle placement in the epidural space, with dye, a solution containing normal saline, 3 mL and Depo-Medrol 80 mg were incrementally injected into the lumbar epidural space. The patient tolerated the procedure well with no complications. The patient was observed in the Pain Clinic and then discharged home neurologically intact. Plan and Disposition:: Patient was discharged without incident.
[2024-07-17 11:35] VITALS: BP 142/79; PULSE 78; RESP 16; TEMP 36.8; O2SAT 94; BMI 32.1
[2024-07-17 11:37] VITALS: BP 143/93; PULSE 79; RESP 18; O2SAT 93
[2024-07-17] MEDS: methylPREDNISolone ACETATE 80MG/ML VIAL 80 MG (11:37)
[2024-07-17 11:38] VITALS: BP 143/93; PULSE 81; RESP 18; O2SAT 93
[2024-07-17 11:51] VITALS: BP 129/69; PULSE 78; RESP 16; TEMP 36.9; O2SAT 96
== END 2024-07-17 11:51 | disposition home or self-care (01) ==
PROVIDERS: PCP Nurse Practitioner Family; Visit Provider Nurse Anesthetist, Certified Registered
DX: M51.16 Intervertebral disc disorders with radiculopathy, lumbar region (principal); M47.26 Other spondylosis with radiculopathy, lumbar region
CPT/HCPCS: 62323; J1010

== ENCOUNTER 2024-09-05 07:53 | Outpatient (CLI) | payer MEDICARE, BC, SELFPAY ==
[2024-09-05] MEDS: ALBUTEROL 0.083% 2.5 MG/3 ML NEB IH (09:04)
== END 2024-09-05 23:59 | disposition home or self-care (01) ==
LOC: RT 07:54
PROVIDERS: PCP Nurse Practitioner Family; Visit Provider Nurse Practitioner Family
DX: R06.09 Other forms of dyspnea (principal)
CPT/HCPCS: 94060; 94727; 94729; J7613

== ENCOUNTER 2024-09-20 07:24 | Outpatient (CLI) | payer MEDICARE, BC, SELFPAY ==
--- NOTE | 2024-09-20 | CA_ITS ---
APPROVED REPORT Exam: Pharmacologic Technologist: Holley Villegas Ht: 6 ft 2 in Wt: 265 lbs BSA: 2.45 m2 HR: 69 bpm BP: 135/80 mmHg Medical History Cardiac Risk Factors: Smoking Stress Test Details HR Resting HR: 69 bpm Max Heart Rate (APMHR): 151 bpm Target HR (85% APMHR): 128 bpm Recovery HR: 81 bpm BP Resting BP: 135.0/80.0 mmHg Recovery BP: 129.0/80.0 mmHg ECG Stress ECG Conclusion During lexiscan pt experinced SOB. Frequent PVC noted. No evidence of ischemia after Lexiscan administration. Electronically signed by : Carmen Pinon MD 09/20/2024 12:03:46
--- NOTE | 2024-09-20 07:28 | NM_ITS ---
APPROVED REPORT Exam: Nuclear Stress Test Indication: chest pain..soa...pre-op Patient Location: Outpatient Stress Tech: Holley Nelly JOS Tech:Jessica Rothman KYLER RT(R)(N) Ht: 5 ft 10 in Wt: 265 lbs HR: 70 bpm BP: 135/80 mmHg BSA: 2.35 m2 TID: 1.26 BMI: 38.0 History: chest pain..soa...pre-op Procedure: Patient received 0.4 mg of intravenous Lexiscan, resting heart rate 70 bpm, resting blood pressure 135/80 mmHg, with Lexiscan maximum heart rate achieved was 82 bpm which is 85 % of the maximum predicted heart rate and blood pressure was 142/70 mmHg. With Lexiscan, patient denied any complaint of chest pain. Cardiac Stress and Resting SPECT Images: Cardiac Stress and Resting SPECT images were obtained using technetium 99m Myoview 31.1 mCi stress and 10.40 mCi at rest. Resting and stress imaging in supine and prone positions demonstrate a large sized, moderate, partially reversible perfusion defect in the inferior LV wall. There is increase in transit ischemic dilatation ratio (TID 1.26), suggestive of possible balanced ischemia or multivessel disease Gated imaging demonstrates moderately reduced LV systolic function. LVEF is calculated at 33%. Conclusion: Large sized, moderate, partially reversible perfusion defect in the inferior LV wall. Findings are suggestive of partial reversible ischemia. There is increase in transit ischemic dilatation ratio (TID 1.26), suggestive of possible balanced ischemia or multivessel disease Gated imaging demonstrates moderately reduced LV systolic function. LVEF is calculated at 33%. Electronically signed by : Carmen Pinon MD 09/20/2024 12:01:38
[2024-09-20] MEDS: SODIUM CHLORIDE 0.9% 10ML SYR (RAD ONLY) 10 ML IV ×2 (09:30→09:31)
[2024-09-20] MEDS: REGADENOSON 0.4MG/5ML SYRINGE 0.4 MG IV (09:30)
[2024-09-20] MEDS: ISOTOPE MYOVIEW (PER STUDY) 1 DOSE IV (09:30)
== END 2024-09-20 23:59 | disposition home or self-care (01) ==
LOC: RAD 07:25
PROVIDERS: PCP Nurse Practitioner Family; Visit Provider Physician Assistant
DX: R07.9 Chest pain, unspecified (principal); I35.0 Nonrheumatic aortic (valve) stenosis; R06.09 Other forms of dyspnea; R94.31 Abnormal electrocardiogram [ECG] [EKG]
CPT/HCPCS: 78452; 93017; 93018; A9502; J2785

== ENCOUNTER 2024-09-26 12:16 | Day surgery (SDC) | payer MEDICARE, BC, SELFPAY ==
[2024-09-26] VITALS (12 sets, daily range): BP systolic 82–153; BP diastolic 50–85; PULSE 61–68; RESP 18; TEMP 36.7; O2SAT 92–97; BMI 34.2
--- NOTE | 2024-09-26 07:17 | IR_ITS ---
APPROVED REPORT Patient Location: Outpatient Power Reactor Operator: KYLER Dee RT (R) PROCEDURES Left heart catheterization Left ventriculogram Selective coronary angiogram Intravascular ultrasound to the LAD INDICATION Abnormal Myoview, Systolic congestive heart failure, New onset cardiomyopathy, Reoperative evaluation Informed consent was obtained prior to the procedure. COMPLICATIONS NONE Estimated Blood Loss: LESS THAN 10 ML TECHNIQUE One percent lidocaine used to anesthetize the right anterior aspect of the wrist. The right radial artery was accessed via the Seldinger technique. A 6 Cambodian sheath was placed in the right radial artery. 2.5 mg of Verapamil, 800 mcg of nitroglycerin, 1mg Lidocaine and 5000 U Heparin were given through the arterial sheath. The 6 Cambodian JL 3 guide catheter r was also used to perform left heart catheterization, left ventriculogram and selective coronary angiogram. At the end the diagnostic angiogram therapeutic heparin was administered giving a therapeutic ACT and the guide catheters placed in left main artery followed by Choice PT extra-support wire placed into the LAD. Intravascular ultrasound probe was advanced which demonstrated moderate plaque in the proximal LAD with an MLA of 4.6 mm???. Given this did not meet angiographic or hemodynamic significance the apparatus was removed the sheath was removed good hemostasis was achieved using TR banding patient was transferred to the postop putting in stable condition ANGIOGRAPHIC RESULTS The left main artery Normal The left anterior descending artery Has proximal long 40% stenosis with a focal concentric 50% stenotic lesion the remaining mid LAD is widely patent The circumflex artery Large and dominant giving rise to a medium size ramus intermedius which has proximal 20 and mid vessel 30% stenosis. The circumflex artery then has a 30% eccentric stenosis. It gives rise to a second obtuse marginal artery which is widely patent while the third obtuse marginal artery bifurcates off the second obtuse marginal artery and has an ostial 80% stenosis. This is a 2.5 mm vessel. The terminal obtuse marginal artery is patent The right coronary artery Nondominant and patent The FLOWER ventriculogram reveals Dilated ventricle with diffuse hypokinesis estimated at 35% The left ventricular end-diastolic pressure 15 mmHg IMPRESSION Moderate disease in the proximal LAD creating an MLA of 4.6 mm??? 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 Reduced ejection fraction Normal LVEDP PLAN 1. Medical management for proximal LAD disease and second obtuse marginal artery disease. Stenting the second obtuse marginal artery would require crossing the ostium of a larger first obtuse marginal artery and thereby likely cause plaque shift and require bifurcating stents. The second obtuse marginal artery is medium in size and should respond favorably to medical management. The second obtuse marginal artery is not contributing to the cardiomyopathy 2. Aggressive risk factor modification 3. Recommend sleep study 4. Cardiac MRI 5. Consider workup for amyloidosis and/or other etiologies of cardiomyopathy Electronically signed by : Franco Hanna MD 09/26/2024 11:58:33
--- NOTE | 2024-09-26 07:49 | CA_ITS ---
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 254.0 (50-130 cm/s) AO Peak GR. 25.70 mmHg AO Mean GR. 14.40 (<5 mmHg) AO VTI 57.5 (18-25 cm) KONSTANTIN (VTI) 1.24 (2.5-4.5 cm2) Other Information Study Quality: Fair Conclusion This is a limited TTE to evaluate for LVEF. Limited windows are obtained. Technically difficult study due to frequent ectopy during image acquisition. The left ventricle is normal in size. There is increased LV wall thickness. The septum is asynchronous. There is mild to moderate global hypokinesis present. LVEF is 40%. Electronically signed by : Carmen Pinon MD 09/26/2024 15:13:25
[2024-09-26 08:51] LABS: Basophils # 0.1 K/mm3 (0-0.2); Basophils % 1.1 % (0.1-2.0); Eosinophils # 0.3 K/mm3 (0.0-0.4); Eosinophils % 5.5 % (0.1-12.0); Hemoglobin 15.5 g/dL (14.1-18.0); Lymphocytes # 1.3 K/mm3 (0.7-4.5); Lymphocytes % 22.2 % (10-50); Mean Corpuscular Hemoglobin 30.4 pg (27.0-31.2); Mean Corpuscular Volume 92.2 fl (80-94); Mean Platelet Volume 10.6 fl (7.4-10.4); Monocytes # 0.4 K/mm3 (0.1-1.0); Monocytes % 7.6 % (1.7-9.3); Neutrophils # 3.6 K/mm3 (1.8-7.8); Neutrophils % 63.4 % (37.0-80.0); Platelet Count 158 K/mm3 (142-424); Red Cell Distribution Width 12.7 % (11.5-17.5); White Blood Count 5.7 K/mm3 (4.8-10.8)
[2024-09-26 08:55] LABS: Chloride 104 mmol/L (98-107)
[2024-09-26 08:56] LABS: Potassium 4.5 mmoL/L (3.5-5.1); Sodium 138 mmol/L (136-145)
[2024-09-26 08:59] LABS: Anion Gap 9.5 mEq/L (5-15); Blood Urea Nitrogen 15 mg/dl (9-20); Calcium 8.8 mg/dl (8.4-10.2); Carbon Dioxide 29 mmol/L (22.0-30.0); Creatinine Clearance Estimated 119 mL/min (50-200); Estimated Glomerular Filt Rate 96 ml/min (>60); GFR (African American) 116 ML/MIN (>60); Glucose 98 mg/dl (74-100)
[2024-09-26] MEDS: VERAPAMIL 2.5MG/ML 2ML VIAL 2.5 MG IV (11:20)
[2024-09-26] MEDS: LIDOCAINE 1% 10ML MDV 20 ML IJ (11:20)
[2024-09-26] MEDS: HEPARIN 1,000 UNITS/ML 10ML VIAL (CATH LAB) 10000 UNIT IV (11:20)
[2024-09-26] MEDS: HEPARIN 1,000 UNITS/500ML NS (CATH LAB) 3000 UNIT IV (11:20)
[2024-09-26] MEDS: 0.9 % SODIUM CHLORIDE 500 ML 25 ML IV (11:20)
[2024-09-26] MEDS: diphenhydrAMINE 50MG/ML VIAL 50 MG IV (11:20)
[2024-09-26] MEDS: NITROGLYCERIN 800MCG/8ML SYR (CATH LAB) 800 MCG IA (11:21)
[2024-09-26] MEDS: MIDAZOLAM HCL 1MG/ML 5ML VIAL 1 MG IV (11:41)
[2024-09-26] MEDS: FENTANYL 100MCG/2ML VIAL 50 MCG IV (11:41)
[2024-09-26] MEDS: IOPAMIDOL-370 (76%);100ML BOTTLE 130 ML IV (14:07)
[2024-09-26 14:18] LABS: CATHL Activated Clotting Time 389 SEC (74-125)
== END 2024-09-26 15:04 | disposition home or self-care (01) ==
PROVIDERS: PCP Nurse Practitioner Family; Visit Provider Internal Medicine
DX: I25.118 Atherosclerotic heart disease of native coronary artery with other forms of angina pectoris (principal); I35.0 Nonrheumatic aortic (valve) stenosis; I42.8 Other cardiomyopathies; I50.21 Acute systolic (congestive) heart failure; R94.39 Abnormal result of other cardiovascular function study; R06.09 Other forms of dyspnea; R94.31 Abnormal electrocardiogram [ECG] [EKG]; F17.210 Nicotine dependence, cigarettes, uncomplicated; E78.5 Hyperlipidemia, unspecified; Z79.899 Other long term (current) drug therapy
CPT/HCPCS: 80048; 85025; 85347; 92978; 93308; 93458; 99152; 99153; C1725; C1769; J1200; J1644; J2250; J3010; Q9967

== ENCOUNTER 2024-10-05 10:24 | Outpatient (CLI) | payer MEDICARE, BC, SELFPAY | END 2024-10-05 23:59 | disposition home or self-care (01) | LOC: RAD 10:25 | PROVIDERS: PCP Nurse Practitioner Family; Visit Provider Nurse Practitioner Family | DX: I25.10 Atherosclerotic heart disease of native coronary artery without angina pectoris (principal); I42.9 Cardiomyopathy, unspecified; I50.20 Unspecified systolic (congestive) heart failure | CPT/HCPCS: 75557 ==

== ENCOUNTER 2025-05-28 13:20 | Outpatient (CLI) | payer MEDICARE, BC, SELFPAY ==
--- NOTE | 2025-05-28 13:28 | CT_ITS ---
FINAL REPORT TECHNIQUE: Thin section axial images were obtained through the lungs using a low-dose technique per lung cancer screening protocol. Reconstruction images were obtained using the axial data. Exam was performed using dose reduction technique. This study was performed with techniques to keep radiation doses as low as reasonably achievable (ALARA). Individualized dose reduction techniques using automated exposure control or adjustment of mA and/or kV according to the patient's size were employed. 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 There is a 5 mm subpleural left upper lobe nodule, best seen on image #24 of series 4, stable. There are stable areas of scar present in the left upper lobe as well. A subpleural 5 mm nodule in the left lower lobe, best seen on image #63, is also stable. No new nodules or masses are identified. Lymph nodes: There is a stable anterior mediastinal node, otherwise no adenopathy is seen. Mediastinum: Heart size is normal. Prominent coronary artery calcifications are noted. Pleura/pericardium: No pleural or pericardial effusion. Other: There is a 2 cm hypodense liver lesion, which is stable but indeterminate. IMPRESSION: Stable pulmonary nodules as described. No new nodules are identified. Lung RADS: 2S, the S designation for prominent coronary artery calcifications and the hypodense liver lesions. Recommendation: 12-month follow-up LDCT. Reviewed, Interpreted and Dictated by Lorena Laurent MD Transcribed by Anisha Hanna Authenticated and [facility]
== END 2025-05-28 23:59 | disposition home or self-care (01) ==
LOC: RAD 13:21
PROVIDERS: PCP Nurse Practitioner Family; Visit Provider Nurse Practitioner Family
DX: Z12.2 Encounter for screening for malignant neoplasm of respiratory organs (principal); F17.210 Nicotine dependence, cigarettes, uncomplicated; T59.891A Toxic effect of other specified gases, fumes and vapors, accidental (unintentional), initial encounter; R91.8 Other nonspecific abnormal finding of lung field; J98.4 Other disorders of lung; I25.10 Atherosclerotic heart disease of native coronary artery without angina pectoris; K76.9 Liver disease, unspecified
CPT/HCPCS: 71271

== ENCOUNTER 2025-06-14 19:29 | Emergency (ER) | payer MEDICARE, BC, SELFPAY ==
[2025-06-14] VITALS (8 sets, daily range): BP systolic 104–162; BP diastolic 61–96; PULSE 40–85; RESP 15; TEMP 36.8; O2SAT 95–97; BMI 30.8
--- NOTE | 2025-06-14 19:42 | ECG_ITS ---
APPROVED REPORT Exam: Resting ECG HR:79 bpm ECG Measurements Heart Rate 79 AXES IA 146 P 67 QRSd 107 QRS 72 QT 399 T -4 QTc 434 Conclusion Sinus rhythm with occasional PVCs no other acute ST or T wave changes concern for Electronically signed by : Anh Osborne, 06/14/2025 23:10:18
--- OUTSIDE RECORDS SUMMARY | 2025-06-14 19:45 | XMS_ITS | Clinical Summary ---
Author Organization [employer] ([place], [place], [place], [place], [place]) Address [address] [place] [address] Care Team Providers Care Family Consumer Science Fcs Teacher Name Role Phone Elle Sal APRN Primary Care Provider [phone] Allergies No known active allergies Medications varenicline (CHANTIX) 1 mg tablet Take by mouth 2 (two) times daily. 07/26/2024 Active tamsulosin (FLOMAX) 0.4 mg cap 24 hr capsule Take 2 capsules (0.8 mg total) by mouth daily. 08/01/2024 Active ipratropium-alb uteroL (DUO-NEB) 0.5 mg-3 mg(2.5 mg base)/3 mL nebulizer solution 2 (two) times daily. 06/19/2024 Active gabapentin (NEURONTIN) 400 MG capsule Take by mouth 2 (two) times daily. 08/06/2024 Active Trelegy Ellipta 100-62.5-25 mcg dsdv 1 puff as needed. 06/07/2024 Active finasteride (PROSCAR) 5 mg tablet Take 1 tablet (5 mg total) by mouth daily. 06/27/2024 Active Missing or Non-Formulary Medication 2 (two) times daily CBD. Active albuterol 90 mcg/actuation inhaler Active aspirin 81 MG EC tablet Active baclofen (LIORESAL) 10 MG tablet Active Jardiance 10 mg tablet Active furosemide (LASIX) 20 MG tablet Active HYDROcodone-franci taminophen (NORCO) 5-325 mg per tablet Active meloxicam (MOBIC) 7.5 MG tablet Active metoprolol succinate (TOPROL-XL) 25 MG 24 hr tablet Acti ve predniSONE (DELTASONE) 50 MG tablet Active Entresto 24-26 mg tablet Active rosuvastatin (CRESTOR) 10 MG tablet Active Social History Tobacco Use Types Packs/Day Years Used Date Smoking Tobacco: Every Day Cigarettes Smokeless Tobacco: Never Tobacco Cessation:Ready to Q uit: Not Asked; Counseling Given: Not Answered Alcohol Use Standard Drinks/Week Comments Not Currently 0 (1 standard drink = 0.6 oz pur e alcohol) [facility] Intimate Partner Violence Answer Da te Recorded Within the last year, have y ou been afraid of your partner or ex-partner? No 08/13/2024 Within the last year, have y ou been humiliated or emotionally abused in other ways by your partner or ex-partner? No Within the last year, have y ou been kicked, hit, slapped, or otherwise physically hurt by your partner or ex-partner? No 08/13/2024 Within the last year, have y ou been raped or forced to have any kind of sexual activity by your partner or ex-partner? No 08/13/2024 Sex and Gender Information Value Date Recorded Sex Assigned at Not on file Legal Sex Male 3:42 PM CDT Gender Identity Not on file Sexual Orientation Not on file Last Filed Vital Signs Vital Sign Reading Time Taken Comments Blood Pressure 142/77 10/16/2024 12:58 PM EST Pulse 68 10/16/2024 12:58 PM EST Temperature 36.2 C (97.2 F) 10/16/2024 12:36 PM EST Respiratory Rate 20 10/16/2024 12:5 8 PM EST Oxygen Saturation 93% 10/16/2024 12: 58 PM EST Inhaled Oxygen Concentration - - Weight 120.3 kg (265 lb 3.2 oz) 10/16/2024 6:00 AM EST Height 188 cm (6' 2 ) 10/16/2024 6:00 AM EST Body Mass Index 34.05 10/16/2024 6:00 AM EST Plan of Treatment Health Maintenance Due Date Last Done Comments CT Colonography 1954 Colonoscopy 1954 Colorectal Cancer Screening 1954 FOBT/FIT 1954 Fit-DNA (Cologuard) 1954 Sigmoidoscopy 1954 Hepatitis C Screening 1972 Shingles Vaccine (Zoster) (1 of 2) 2004 Abdominal Aortic Aneurysm (A AA) Screen 10/21/2019 Medicare Initial AWV [id number] 10/14/2020 Falls Risk Screening 08/15/2024 COVID-19 VACCINE ( - season) 2025 08/12/2021, 11/26/2020, 10/29/2020 Influenza Vaccine (#1) 2025 Tobacco Cessation Counseling and Screening (12+) 07/26/2025 07/26/2024 Depression Screening (12+) 08/13/2025 08/13/2024 DTAP/TDAP/TD VACCINES (2 - T d or Tdap) 05/16/2026 05/16/2016 Respiratory Syncytial Virus (RSV) Adult or (1 - 1-dose 75+ series) 2029 Pneumococcal 50+ years Completed 11/09/2021, 2019 Medical Devices Implanted Type Area Motor Runner Device Identifier Shelf Expiration Date Model / Serial / Lot Bone Matrx Vivigen Prefilled -1900-001 - [id number] Implanted:Qty : 1 on 10/16/2024 by Franco Mendes MD at [facility] IMPLANTS N/A: Spine Lumbar LIFENET:LIFENET TRANSPLANT SRV 09/12/2025 -1900-001 / [id number] / Cage T/Plif 13mm Eit 8d 10/05 [id number] - [id number] Implanted:Qty : 1 on 10/16/2024 by Franco Mendes MD at [facility] IMPLANTS N/A: Spine Lumbar J &J:DEPUY:DEPUY SPINE 07/14/2034 [id number] / / [id number] Imp Vpr Prm Cfxfen Xtab 7x50mm [id number] - [id number] Implanted:Qty : 4 on 10/16/2024 by Franco Mendes MD at [facility] IMPLANTS N/A: Spine Lumbar J &J:DEPUY:DEPUY SPINE [id number] / [id number] / Mis Susi Ply Scrw Set Ti 186-15-000 - [id number] Implanted:Qty : 4 on 10/16/2024 by Franco Mendes MD at [facility] IMPLANTS N/A: Spine Lumbar J &J:DEPUY:DEPUY SPINE / / Arcenio Spine Viper [id number] 040 - [id number] Implanted:Qty : 2 on 10/16/2024 by Franco Mendes MD at [facility] IMPLANTS N/A: Spine Lumbar J &J:DEPUY:DEPUY SPINE / / Explanted Type Area Motor Runner Device Identifier Shelf Expiration Date Model / Serial / Lot Wire Nitonal 2866-12-320 - [id number] Explanted:Qty : 2 on 10/16/2024 at [facility] IMPLANTS N/A: Spine Lumbar J &J:DEPUY:DEPUY SPINE 2866-12-15 20 / 2866-12-15 20 / Insurance MEDICARE PART A B GENERIC COMMERCIAL Care Teams Family Consumer Science Fcs Teacher Relationship Specialty Start Date End Date Elle Sal, MACADAM RAKER [address] [place] [address] PCP - General Nurse Practitioner 10/16/24
--- OUTSIDE RECORDS SUMMARY | 2025-06-14 19:45 | XMS_ITS | Referral Summary ---
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 Name Role Phone Elle Sal APRN Primary Care Provider [phone] Allergies No known active allergies Medications varenicline [...] drink = 0.6 oz pur e alcohol) [facility] Intimate Partner Violence Answer Da te Recorded [...] 10/16/2024 6:00 AM EST Plan of Treatment Not on file Medical Devices Implanted Type Area Radial Arm Saw Operator Device Identifier Shelf Expiration Date Model / Serial / Lot Bone Matrx Vivigen Prefilled Bl-1900-001 - [id number] Implanted:Qty : 1 on 10/16/2024 by Franco Mendes MD at [facility] IMPLANTS N/A: Spine Lumbar LIFENET:LIFENET TRANSPLANT SRV 09/12/2025 BL-1900-001 / [id number] / Cage T/Plif 13mm Eit 8d 10/05 [id number] - [id number] Implanted:Qty : 1 on 10/16/2024 by Franco Mendes MD at [facility] IMPLANTS N/A: Spine Lumbar J &J:DEPUY:DEPUY SPINE 07/14/2034 [id number] / / [id number] Imp Vpr Prm Cfxfen Xtab 7x50mm [id number] - Implanted:Qty : 4 on 10/16/2024 by Franco Mendes MD at [facility] IMPLANTS N/A: Spine Lumbar J &J:DEPUY:DEPUY SPINE [id number] / / Mis Susi Ply Scrw Set Ti - [id number] Implanted:Qty : 4 on 10/16/2024 by Franco Mendes MD at [facility] IMPLANTS N/A: Spine Lumbar J &J:DEPUY:DEPUY SPINE / / Arcenio Spine Viper [id number] - [id number] Implanted:Qty : 2 on 10/16/2024 by Franco Mendes MD at [facility] IMPLANTS N/A: Spine Lumbar J &J:DEPUY:DEPUY SPINE / / Explanted Type Area Radial Arm Saw Operator Device Identifier Shelf Expiration Date Model / Serial / Lot Wire Nitonal 2866-05-320 - [id number] Explanted:Qty : 2 on 10/16/2024 at [facility] IMPLANTS N/A: Spine Lumbar J &J:DEPUY:DEPUY SPINE 2866-12-15 20 / 2866-12-15 20 / Insurance MEDICARE PART A B COMMERCIAL Care Teams Entomology Professor Relationship Specialty Start Date End Date Elle Sal APRN [address] [address] PCP - General Nurse Practitioner 10/16/24
--- OUTSIDE RECORDS SUMMARY | 2025-06-14 19:45 | XMS_ITS | Data Portability ---
Author Organization [facility] ISAIAH Dennison [place] CLOSED Address [address] [place] [address] Care Team Providers Care Technical Support Analyst Name Role Phone SUMMER HENSON Referring Provider Assessment Encounter Date Assessment Date Assessment LastModified by Organization Details LastModified Time 07/23/2024 07/23/2024 Assessment: Orin Chaves is a 68-year-old presents to the clinic for evaluation of low back pain with radiation to left lower extremity x 2 years. Patient presents with disc containing completed lumbar MRI through [facility] on 05/28/2024. Patient reports no inciting event at the time of symptom onset. Patient reports most significant pain to left posterior lateral hip with radiation down posterior lateral extremity and termination in the calf. Review of imaging with Dr. Robles, patient has apparent L4-5 spondylolisthesis and synovial cyst with bilateral neuroforaminal stenosis. Patient is a candidate for L4-[address] Robles reviewed the surgery as well as recovery and risks including but not limited to spinal fluid leak, infection and adjacent segment disease. Patient is agreeable like to proceed with surgery. Patient to meet with Patrica, our oyster fisherman, during today's visit. Imaging: I personally reviewed the imaging with Dr. Robles and discussed the below findings. Lumbar MRI completed through [facility] on 05/28/2024 and brought in on disc today. Patient has apparent L4-5 spondylolisthesis with bilateral neuroforaminal stenosis. Patient additionally has evidence of synovial cyst to the above described level. Plan: Candidate for MIS L4-5 TLIF [email or web address] Not available 07/23/2024 10:05:09 11/01/2024 11/01/2024 Mr. Chaves presents today status post MIS L4-L5 TLIF 08/22. [place] removed with no issues or concerns. All questions answered. [email or web address] Not available 11/01/2024 14:16:22 11/29/2024 11/29/2024 Assessment: Orin Chaves is a 69-year-old presenting to the clinic status post MIS L4-5 TLIF on 10/16/[address] Robles. Patient presents with completed lumbar x-rays through [facility] on 11/29/2024. Since surgery, patient reports complete resolution of left lower extremity radicular pain, though notes onset of significant low back pain bilateral at the waistline below his surgical site. On review of imaging, there is no clear indication as to why patient has sudden onset of severe low back pain. Dr. Robles encouraged patient to walk is much as possible in the time between now and his follow-up appointment in 2 to 3 months. Patient to be provided with script of tramadol by Dr. Robles to take PRN. Prior to his follow up appointment, we will repeat lumbar x-rays. At that time if patient's symptoms have not improved, we may consider additional imaging to further evaluate. Patient to contact our clinic with questions or concerns in the meantime. Imaging: I personally reviewed the imaging with Dr. Robles and discussed the below findings. Lumbar x-rays were completed on 11/29/2024 that [facility] to reveal intact hardware with no evidence of loosening or migration. Plan: Follow-up in 2 to 3 months with repeat lumbar x-rays [email or web address] Not available 12/03/2024 15:20:28 03/07/2025 03/07/2025 Mr. Chaves is progressing after an L4-5 fusion. His x-rays today look good with no significant changes in comparison to the prior. I think that his right-sided back pain may continue to improve over the coming year. If it does not, I do think there might be some interventional pain options to do facet blocks above or below his L5-S1 fusion. Ultimately, I would save this as a last resort. He is comfortable with this plan, and will call if he has any further questions or concerns. [email or web address] Not available 03/07/2025 10:15:30 Plan of Treatment Reminders Order Date Submit Date Provider Last Modified By Organization Details Last Modified Time Details Appointments None record ed. Lab None record ed. Referral None record ed. Procedures None record ed. Surgeries None record ed. Imaging None record ed. Medication Orders None record ed. Patient TargetsNo targets recorded. Patient InstructionsNo instructions recorded. Reason for Referral None Reported. Results Created Date Observation Date Name Description Value Unit Range Abnormal Flag Note LastModifiedBy Organization Detail LastModifiedTime 11/30/19 25 11/29/2024 XR, lumbo sacra l spine , 2 or 3 view [facility] [address] [place] [address] Patitree t Name: ORIN prescott : [birth year] Chin prescott 65 Orderi ng Provid er: KYMBERLY ROBLES EXAM DATE: 2024 EXAM: XR LUMBAR AP/LAT CLINIC AL INFORM ATION: Back pain. IMAGES PROVID ED: AP, latera l and coned down views of the lumbar spine. COMPAR BANDAR: None. 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 No compli cation . No hardwa re loosen ing is noted. T12 compre ssion deform ity of uncert ain age. Mild diffus e DDD. IMPRES RACHEL: 1. Uncomp licate d appear ing L4-5 fusion 2. T12 compre ssion deform ity Interp reted By: Shahram Bullard MD Electr onical ly Signed By: Shahram Bullard MD on 025 11:14 AM [email or web address] [facility] Radiology [facility] [address] [place], [address], 01/08/2025 08:32:07 03/07/2003/07/2025 XR, lumbo sacra l spine , 2 or 3 view [facility] [address] [place] [address] Patitree t Name: ORIN prescott : [birth year] 54 Chin prescott 65 Orderi ng Provid er: KYMBERLY ROBLES EXAM DATE: 2024 EXAM: XR LUMBAR AP/LAT CLINIC AL INFORM ATION: Back pain. Surger y follow -up IMAGES PROVID ED: AP, latera l and coned down views of the lumbar spine. COMPAR BANDAR: 025 FINDIN GS: Stable appear ance of fusion site at L4-5. No hardwa re loosen ing or compli cation . No hardwa re fractu re. There is modera te degene rative change in the upper L-spin e and there is a compre ssion deform ity involv ing T12, stable no parasp inal diseas e. IMPRES RACHEL: Uncomp licate d appear ing L4-5 fusion Interp reted By: Shahram Bullard MD Electr onical ly Signed By: Shahram Bullard MD on 025 10:04 AM [email or web address] [facility] Radiology [address] [place], [address], 04/04/2025 09:43:38 Result Notes Documentation Provider Name and Address Organization Details Recorded Time Xr, Lumbosacral Spine, 2 Or 3 View : [facility] [address] [place] [address] Patient Name: ORIN CHAVES Patient : 1955 Patient Ordering Provider: PAUL ROBLES EXAM DATE: 11/29/2024 EXAM: XR LUMBAR AP/LAT CLINICAL INFORMATION: Back pain. IMAGES PROVIDED: AP, lateral and coned down views of the lumbar spine. COMPARISON: None. FINDINGS: Previous L4-5 posterior fixation and interbody fusion. No complication. No hardware loosening is noted. T12 compression deformity of uncertain age. Mild diffuse DDD. IMPRESSION: 1. Uncomplicated appearing L4-5 fusion 2. T12 compression deformity Interpreted By: Shahram Bullard MD Mino malin [facility] 01/08/2025 08:32:07 Xr, Lumbosacral Spine, 2 Or 3 View : [facility] [address] [place] [address] Patient Name: ORIN CHAVES Patient : 1955 Patient Ordering Provider: PAUL ROBLES EXAM DATE: 03/07/2025 EXAM: XR LUMBAR AP/LAT CLINICAL INFORMATION: Back pain. Surgery follow-up IMAGES PROVIDED: AP, lateral and coned down views of the lumbar spine. COMPARISON: 11/29/2024 FINDINGS: Stable appearance of fusion site at L4-5. No hardware loosening or complication. No hardware fracture. There is moderate degenerative change in the upper L-spine and there is a compression deformity involving T12, stable no paraspinal disease. IMPRESSION: Uncomplicated appearing L4-5 fusion Interpreted By: Shahram Bullard MD Kaitlynn Barreto [facility] 04/04/2025 09:43:38 Medical Equipment None Reported. Allergies No known drug allergies Medications Name Sig Start Date Stop Date Status Note LastModified by Organization Details LastModified Time cyclobenzapri ne 10 mg tablet active Not Available Not Available Not Available doxycycline hyclate 100 mg capsule active Not Available Not Available N ot Available ipratropium 0.5 mg-albuterol 3 mg (2.5 mg base)/3 mL nebulization soln INHALE CONTENTS OF 1 VIAL (3 ML) VIA NEBULIZER FOUR TIMES A DAY NEEDED FOR SHORTNESS OF BREATH OR WHEEZING active Not Available Not Available No t Available ibuprofen 800 mg tablet active Not Available Not Available No t Available nicotine (polacrilex) 2 mg gum active Not Available Not Available Not Available hydrocodone 5 mg-acetaminop hen 325 mg tablet active Not Available Not Available Not Available gabapentin 400 mg capsule TAKE ONE CAPSULE BY MOUTH 2 TIMES A DAY active Not Available Not Available No t Available aspirin 81 mg tablet,delaye d release active Not Available Not Available No t Available tramadol 50 mg tablet TAKE 1 TABLET BY MOUTH THREE TIMES DAILY NEEDED active Not Available Not Available No t Available meloxicam 7.5 mg tablet active Not Available Not Available No t Available tamsulosin 0.4 mg capsule TAKE 2 CAPSULES BY MOUTH ONCE A DAY active Not Available Not Available N ot Available baclofen 10 mg tablet active Not Available Not Available No t Available prednisone 50 mg tablet active Not Available Not Available No t Available diclofenac sodium 75 mg tablet,delaye d release active Not Available Not Available No t Available furosemide 20 mg tablet active Not Available Not Available No t Available metoprolol succinate ER 25 mg tablet,extend ed release 24 hr active Not Available Not Available Not Available oxycodone-franci taminophen 7.5 mg-325 mg tablet Take 1 tablet every 6 hours by oral route as needed. active Not Available Not Available N ot Available methylprednis olone 4 mg tablets in a dose pack as directed active Not Available Not Available No t Available albuterol sulfate HFA 90 mcg/actuation aerosol inhaler active Not Available Not Available Not Available finasteride 5 mg tablet active Not Available Not Available No t Available rosuvastatin 10 mg tablet active Not Available Not Available Not Available varenicline tartrate 1 mg tablet active Not Available Not Available Not Available varenicline tartrate 0.5 mg (11)-1 mg (42) tablets in a dose pack active Not Available Not Available Not Available Anoro Ellipta 62.5 mcg-25 mcg/actuation powder for inhalation active Not Available Not Available N ot Available Jardiance 10 mg tablet TAKE ONE TABLET BY MOUTH ONCE A DAY active Not Available Not Available No t Available Entresto 24 mg-26 mg tablet active Not Available Not Available Not Available Trelegy Ellipta 100 mcg-62.5 mcg-25 mcg powder for inhalation INHALE 1 PUFF BY MOUTH ONCE A DAY active Not Available Not Available No t Available Trelegy Ellipta 200 mcg-62.5 mcg-25 mcg powder for inhalation active Not Available Not Available N ot Available Vitals Date Recorded Body height Body mass index (BMI) Body weight Systolic And Diastolic Provider Name and Address Organization Details Last Updated DateTime 11/29/2024 187.96 cm 33.1 kg/m2 558222.83 g 122/82 mm[Hg] [facility] 11/29/2024 11:22:06 Date Recorded Body height Provider Name an d Address Organization Details Last Updated DateTime 03/07/2025 187.96 cm [facility] 03/07/2025 10:06:34 Date Recorded Body height Body mass index (BMI) Body weight Systolic And Diastolic Provider Name and Address Organization Details Last Updated DateTime 07/23/2024 187.96 cm 33.1 kg/m2 876767.83 g 122/82 mm[Hg] [facility] 07/23/2024 09:25:48 Social History None recorded. Functional Status None recorded. Mental Status None recorded. Family History Nothing Reported. Medical History Condition Response TENS Unit for current problem N Massage Therapy for current problem N Traction for current problem N Other N Gout N Neuro-modulating Drugs for current probl em Y Hyperthyroidism N Emphysema N Narcotic Pain Medication for current pro blem N Black Lung N Steroid Pack for current problem N NSAID Use N Hypothyroidism N COPD Y Injections for current problem Y Osteoporosis/Osteopenia N Heart Attack (NE) N Deep Vein Thrombosis N Mental Illness N Diabetes N Bleeding Disorder N Arthritis Y Tuberculosis N Genetic Disorder N AIDS/HIV N Chiropractor treatment for current probl em N Kidney Failure N Cancer N Stroke N Ultrasound Treatment for current problem N Asthma N Epilepsy/Seizures N Sleep Apnea N Thyroid Disorder N High Cholesterol N Physical Therapy Treatments for current problem N Liver Disease N Pulmonary Embolism N Fibromyalgia N Dialysis N Hypertension N Kidney Disease N Past Encounters Encounter ID Performer Location Encounter Start Date Encounter Closed Date Diagnosis/Indication Diagnosis SNOMED-CT Code Diagnosis ICD10 Code Diagnosis IMO Codes Diagnosis Note [id number] YAKELIN TIJERINA PA-C [facility] [address] [place] [address] 07/23/2024 08:46:48 07/24/2024 04:19:22 Lumbar spondylolisthesis 4673535133 58435 M43.16 Lumbar radiculopathy 128 894830 M54.16 [id number] PAUL ROBLES MD SURGERY SCHEDULE [address] [place] [address] 10/24/2024 14:44:18 11/01/2024 08:25:41 [id number] PAUL ROBLES MD [facility] [address] [place] [address] 11/01/2024 13:47:58 11/09/2024 08:58:53 [id number] YAKELIN TIJERINA PA-C [facility] [address] [place] [id number] 11/29/2024 11:10:13 12/04/2024 05:00:52 Postoperative visit [id number] Z48.89 [id number] PAUL ROBLES MD [facility] [address] [place] [address] 03/07/2025 09:41:27 03/08/2025 05:29:40 Postoperative visit [id number] Z48.89 [id number] Health Concerns Section Related Observation LastModified by Organization Detai ls LastModified Time None Recorded Concern Status LastModified by Organization Details LastModified Time None Recorded Advance Directives Directive None Recorded Payers Insurance Date Sequence Insurance Name Policy Number Policy Torres Covered Member ID Torres Member ID Guarantor Name 03/04/2025 2 [place] [employer] 111 Orin Chaves [id number] Orin Chaves 03/04/2025 1 [place] Orin Chaves [id number] Orin Chaves Notes Date Note Type Note Provider Name and Address Organization Details Recorded Time 07/23/2024 text/html ROS as noted in the HPI Orin Chaves is a 68-year-old presents to the clinic for evaluation of low back pain with radiation to left lower extremity x 2 years. Patient presents with disc containing completed lumbar MRI through [facility] on 05/28/2024. Patient reports no inciting event at the time of symptom onset. Patient reports most significant pain to left posterior lateral hip with radiation down posterior lateral extremity and termination in the calf. Patient denies associated numbness or paresthesia along the same distribution. Patient reports his symptoms improved with lying down, though worsens with sitting, more specifically in his for machinery, standing and ambulation. Patient has failed conservative management including chiropractic manipulation, injections, gabapentin, baclofen and Advil. Patient reports first lumbar injection 1 year ago with 2 weeks of relief, though his subsequent second and third injections did not improve his symptoms. Patient reports a little relief with Advil, though reports gabapentin and baclofen are not helpful to his symptoms. Patient denies bowel/bladder incontinence, saddle anesthesia and lower extremity weakness. Patient seen by both Dr. Robles and I in clinic today. YAKELIN TIJERINA PA-C [address] [place], [address], [facility] 07/23/2024 10:05:32 11/29/2024 text/html ROS as noted in the HPI Orin Chaves is a 69-year-old presenting to the clinic status post MIS L4-5 TLIF on 10/16/[address] Robles. Patient presents with completed lumbar x-rays through [facility] on 11/29/2024. Since surgery, patient reports complete resolution of left lower extremity radicular pain, though notes onset of significant low back pain bilateral at the waistline below his surgical site. Patient notes his pain is relieved at rest, though significantly worsens with activity. Patient reports use of Tylenol and Advil to manage his pain, though reports it is increased in severity since prior to surgery. Patient continues to receive gabapentin 400mg to take BID. Patient reports his incision healed without issue with no redness or drainage from the surgical site and no fevers. Patient is not completed physical therapy or injections via pain management since this procedure. Patient denies bowel/bladder incontinence, saddle anesthesia or lower extremity weakness. 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 Patient was seen by both Dr. Robles and I in clinic today. YAKELIN TIJERINA PA-C [facility] [place], [address], [facility] 12/03/2024 15:21:11 03/07/2025 text/html ROS as noted in the HPI Mr. Chaves is doing well after minimally invasive L4-5 fusion performed on October 16, 2024. This is a second follow-up. He does continue to have some right sided back pain, but nothing as severe as his preoperative symptoms. He underwent x-rays prior to this visit. PAUL ROBLES MD [facility] [place], [address], [facility] 03/07/2025 10:15:46
--- NOTE | 2025-06-14 19:49 | [facility].EDGENADL ---
Discharge Plan Disposition Patient Disposition: Home, Self-Care Condition: Good Prescriptions Prescriptions: New oxycodone 5 mg tablet 5 mg PO Q6H PRN (Reason: pain) Qty: 10 0RF tamsulosin 0.4 mg capsule 0.4 mg PO HS Qty: 10 0RF ondansetron 4 mg tablet,disintegrating 4 mg PO Q6H PRN (Reason: nausea and vomiting) Qty: 14 0RF No Action tamsulosin 0.4 mg capsule 0.4 mg PO DAILY Anoro Ellipta 62.5-25 mcg/actuation blister with device 1 inh inhalation DIRECTED metoprolol succinate [Toprol XL] 25 mg tablet extended release 24 hr 25 mg PO DAILY Qty: 30 5RF rosuvastatin [Crestor] 10 mg tablet 10 mg PO DAILY Qty: 30 2RF aspirin [Adult Aspirin Regimen] 81 mg tablet,delayed release (DR/EC) 81 mg PO DAILY Qty: 30 2RF Trelegy Ellipta 200-62.5-25 mcg blister with device 1 inh inhalation nicotine (polacrilex) 2 mg gum 2 mg buccal Q2H PRN (Reason: nicotine cravings) Qty: 100 2RF albuterol sulfate 90 mcg/actuation HFA aerosol inhaler inhalation varenicline tartrate 1 mg tablet 1 mg PO ONCE Jardiance 10 mg tablet 10 mg PO DAILY Qty: 90 3RF gabapentin 400 mg capsule 400 mg PO TID finasteride 5 mg tablet 5 mg PO DAILY sacubitril-valsartan [Entresto] 24-26 mg Tablet 1 tab PO BID 30 Days Qty: 30 1RF Referrals Follow up/Referrals: Elle Sal APRN [Primary Care Provider, Medical] - See instructions Tani Linares MD [Staff Physician, Urology] - See instructions Activity Restrictions/Add. Instructions Additional Instructions/Restrictions: You were evaluated in the ER and are believed to be appropriate for discharge at this time. Take the prescribed medications as directed. Take Tylenol and ibuprofen if needed for pain, do not exceed the recommended dose on the bottle. Drink water and eat a small snack each time you take these medications to avoid side effects. If Tylenol and ibuprofen do not control your pain, then take the oxycodone. Please only take the oxycodone if needed for severe, breakthrough pain. You should not have to take this regularly. Take the other medications as written on the prescription. Drink plenty of water to stay hydrated and help flush the stone. Call your urologist and make an appointment for follow-up on Tuesday or Tuesday, as soon as possible. You have also been referred to Dr. Linares if you prefer to use him for urology. Return to the ER with any new, worsening, or otherwise concerning symptoms including but not limited to difficulty urinating, painful urination, fevers, uncontrollable pain, or decreased urine output. Clinical Impressions Clinical Impression: Calculus, ureteral, Hydronephrosis, Chest pain Instructions Patient Instructions: Kidney Stones in Adults, Hydronephrosis in Adults Print Language Print Language: Mohawk Discharge ED Provider: Anh Obsorne Adult HPI <Anh Osborne DO - Last Filed: 06/14/25 22:25> General Chief complaint: Back Pain/Injury Stated complaint: lower left back pain, vomiting Time Seen by Provider: 06/14/25 19:39 Mode of Arrival: Ambulatory Source of Information: Patient and Spouse Description of Symptoms (Recalled from ER Triage Doc. by RN): ezio presents for left sided lower back/flank pain. the patient staetd it staretd today adn has really progressed thorughout the day. the patien denies any issues when urinating. no burning, no blood, no urgency/frequency. ezio rates it 6/10. History of Present Illness HPI narrative: Patient is a 69-year-old male with a past medical history of kidney stones with multiple recent surgeries in the past who presents to the emergency department with left flank pain. Patient states that it started acutely at 5:30 PM. Patient states that his pain is currently an 8 out of 10. Nonradiating to his back or into his groin. Patient states that he had 3 episodes of vomiting. Patient has not had any fevers. Patient reports mild nausea. Patient denies any diarrhea. Patient denies any upper respiratory symptoms. Patient denies any chest pain or shortness of breath. Patient states that he took 3 Advil around 7 PM did not significantly improve his pain. Patient denies any urinary symptoms. Patient denies any hematuria. Related Data Home Medications ?Medication ?Instructions ?Recorded ?Confirmed finasteride 5 mg tablet 5 mg PO DAILY bph 09/03/22 10/03/24 gabapentin 400 mg capsule 400 mg PO TID neuropathy 09/03/22 10/03/24 tamsulosin 0.4 mg capsule 0.4 mg PO DAILY 05/15/24 10/03/24 umeclidinium 62.5 mcg-vilanterol 1 inh inhalation DIRECTED 05/15/24 10/03/24 25 mcg/actuation powdr for inhalation (Anoro Ellipta) albuterol sulfate 90 mcg/actuation inhalation 09/11/24 10/03/24 aerosol inhaler fluticasone fur. 200 mcg-umeclid 1 inh inhalation 09/28/24 10/03/24 62.5 mcg-vilant 25 mcg inhalat.powder (Trelegy Ellipta) varenicline tartrate 1 mg tablet 1 mg PO ONCE 10/03/24 10/03/24 Previous Rx's ?Medication ?Instructions ?Recorded aspirin 81 mg tablet,delayed 81 mg PO DAILY #30 tabs 09/25/24 release (Adult Aspirin Regimen) metoprolol succinate 25 mg 25 mg PO DAILY #30 tabs 09/25/24 tablet,extended release 24 hr (Toprol XL) rosuvastatin 10 mg tablet (Crestor) 10 mg PO DAILY #30 tabs 09/25/24 sacubitril 24 mg-valsartan 26 mg 1 tab PO BID 30 days #30 tabs 09/26/24 tablet (Entresto) nicotine (polacrilex) 2 mg gum 2 mg buccal Q2H PRN nicotine 09/28/24 cravings #100 ea empagliflozin 10 mg tablet 10 mg PO DAILY #90 tabs 10/03/24 (Jardiance) ondansetron 4 mg disintegrating 4 mg PO Q6H PRN nausea and 06/15/25 tablet vomiting #14 tabs oxycodone 5 mg tablet 5 mg PO Q6H PRN pain #10 tabs 06/15/25 tamsulosin 0.4 mg capsule 0.4 mg PO HS #10 caps 06/15/25 Allergies Allergy/AdvReac Type Severity Reaction Status Date / Time No Known Allergies Allergy Verified 10/03/24 14:46 PFSH <Anh Osborne, DO - Last Filed: 06/14/25 22:25> PFS Disclaimer: The information contained in this section may have been updated after the patient was seen, as this information can be updated by other users. Medical History (Updated 06/15/25 @ 00:29 by Sobia [place] MD) HFrEF (heart failure with reduced ejection fraction) Tobacco abuse counseling Tobacco abuse Encounter for screening for malignant neoplasm of lung COPD mixed type Smoking greater than 30 pack years Coronary artery disease Encounter for pre-operative cardiovascular clearance Atypical angina Cardiomyopathy Hyperlipidemia LV dysfunction Lumbar radiculopathy Enlarged prostate Hernia Surgical History History of surgery History of surgery Family History Father Throat cancer Social History Smoking Status: Current every day smoker tobacco type: cigarettes packs per day: 2 years smoked: 50 second hand exposure: No alcohol intake: never counseling provided: provider counseling substance use type: denies use current occupational status: retired Travel in the last 8 weeks?: None household members: spouse housing: house current occupation: [employer] current occupational exposures/hazards: No caffeine: Yes Have you lived/traveled outside [place] in past 30 days?: No Contact w/someone who lives/traveled outside US past 30 days?: No Exposure to someone with infectious disease in past 14 days?: No Do you have a fever (greater than 100.4 F or 38 C)?: No Have you tested positive for COVID-19?: No Exposed to someone with COVID-19 in past 14 days?: No Do you have a sore throat?: No Do you have a cough?: No Do you have any weakness?: No Do you have any diarrhea?: No Are you experiencing any unusual bleeding?: No Do you have any muscle aches/pain?: No Do you have any abdominal pain?: No Are you experiencing loss of taste or smell?: No Other Medical History Have you received the Flu Vaccine for this season: No Have you received the Pneumonia Vaccine: No <Ahn Osborne DO - Last Filed: 06/14/25 22:25> ROS Obtained: Yes All systems reviewed & no additional complaints except as documented and Yes Systems reviewed as appropriate & no additional complaints except as documented Physical Exam <Anh Osborne DO - Last Filed: 06/14/25 22:25> General General appearance: alert and in no apparent distress Head Head exam: atraumatic, normocephalic and normal inspection Eye Eye exam: Present normal appearance, PERRL and EOMI; Absent scleral icterus ENT ENT exam: Present normal exam and normal external ear exam Neck Neck exam: Present normal inspection and full ROM Chest Chest inspection: Present normal inspection and symmetric chest wall rise Respiratory Respiratory exam: Present normal lung sounds bilaterally; Absent respiratory distress or wheezes Cardiovascular Cardiovascular exam: Present regular rate, normal rhythm and normal heart sounds Abdominal Exam Abdominal exam: Present soft, distention and tenderness (L flank tenderness); Absent guarding or rebound Extremities Exam Extremities exam: Present normal inspection and full ROM Back Exam Back exam: Present normal inspection and full ROM Neurological Exam Neurological exam: Present alert and oriented X3 Psychiatric Psychiatric exam: Present normal affect and normal mood Skin Skin exam: Present warm and dry Medical Decision Making <Anh Osborne DO - Last Filed: 06/14/25 22:25> Medical Records Medical records reviewed: Yes I reviewed the patient's medical records. Screening: Per USPSTF and CDC recommendations, given the prevalence of disease in our region, it is our hospital?s policy to screen for HIV and viral Hepatitis for all patients aged 18 and over and those with ongoing risk factors. [place] Inquiry Pt receiving controlled substance: No Vital Signs: 06/14/25 19:39 06/14/25 20:51 06/14/25 21:01 Temperature 98.2 F Temperature Source Temporal Artery Scan Pulse Rate 49 L 53 L Pulse Rate [Right Radial] 44 L Respiratory Rate 15 Blood Pressure 121/64 104/61 L Blood Pressure [Right Arm] 137/91 H Blood Pressure Mean [Right Arm] 106 Blood Pressure Source Blood Pressure Source [Right Arm] Automatic Cuff Blood Pressure Position Blood Pressure Position [Right Arm] Sitting 02 Sat by Pulse Oximetry 95 96 95 Oxygen Delivery Method Room Air 06/14/25 21:42 06/14/25 22:00 06/14/25 22:30 Temperature Temperature Source Pulse Rate 40 L 69 85 Pulse Rate [Right Radial] Respiratory Rate Blood Pressure 162/90 H 147/96 H 150/83 H Blood Pressure [Right Arm] Blood Pressure Mean [Right Arm] Blood Pressure Source Blood Pressure Source [Right Arm] Blood Pressure Position Blood Pressure Position [Right Arm] 02 Sat by Pulse Oximetry 95 96 97 Oxygen Delivery Method 06/14/25 23:01 06/14/25 23:30 06/15/25 00:00 Temperature Temperature Source Pulse Rate 42 L 51 L 70 Pulse Rate [Right Radial] Respiratory Rate Blood Pressure 130/70 142/64 H 133/77 Blood Pressure [Right Arm] Blood Pressure Mean [Right Arm] Blood Pressure Source Blood Pressure Source [Right Arm] Blood Pressure Position Blood Pressure Position [Right Arm] 02 Sat by Pulse Oximetry 96 95 95 Oxygen Delivery Method 06/15/25 00:24 Temperature 98.7 F Temperature Source Oral Pulse Rate 74 Pulse Rate [Right Radial] Respiratory Rate 16 Blood Pressure 133/77 Blood Pressure [Right Arm] Blood Pressure Mean [Right Arm] Blood Pressure Source Automatic Cuff Blood Pressure Source [Right Arm] Blood Pressure Position Sitting Blood Pressure Position [Right Arm] 02 Sat by Pulse Oximetry Oxygen Delivery Method Room Air Lab Data Lab results reviewed: Yes I reviewed the patient's lab results. Lab Results 06/14/25 19:49: WBC 10.1, RBC 5.04, Hgb 15.7, Hct 47.0, MCV 93.3, MCH 31.2, MCHC 33.4, RDW 12.6, Plt Count 153, MPV 10.9 H, Neut % (Auto) 81.5 H, Lymph % (Auto) 10.1, Trinity % (Auto) 5.3, Eos % (Auto) 2.5, Baso % (Auto) 0.4, Neut # (Auto) 8.2 H, Lymph # (Auto) 1.0, Trinity # (Auto) 0.5, Eos # (Auto) 0.3, Baso # (Auto) 0.0, PT 11.5, INR 1.04, Sodium 136, Potassium 4.3, Chloride 104, Carbon Dioxide 24, Anion Gap 12.3, BUN 19, Creatinine 1.00, Estimated Creat Clear 106, Estimated GFR 74, Est GFR ( Amer) 89, Glucose 136 H, Calcium 9.0, Total Bilirubin 0.7, AST 24, ALT 20, Alkaline Phosphatase 95, Total Protein 7.6, Albumin 3.7, Globulin 3.9 H, Albumin/Globulin Ratio 0.9 L, Lipase 27 06/14/25 20:52: Urine Color Yellow, Urine Appearance Clear, Urine pH 5.5, Ur Specific [place] 1.025, Urine Protein Negative, Urine Glucose (UA) Negative, Urine Ketones Negative, Urine Blood 2+ A, Urine Nitrate Negative, Urine Bilirubin Negative, Urine Urobilinogen 0.2, Ur Leukocyte Esterase Trace, Urine RBC 10-20, Urine WBC 5-10, Ur Squamous Epith Cells 3-5, Urine Bacteria None 06/14/25 21:30: Troponin I < 0.01 06/15/25 00:15: Troponin I < 0.01 06/14/25 19:49 06/14/25 19:49 Orders (Tests/Meds): ED MEDICATIONS Discontinued Medications Generic Name Dose Route Start Last Admin Trade Name Bradyq PRN Reason Stop Dose Admin Diphenhydramine HCl 50 mg 06/14/25 21:27 06/14/25 21:38 Diphenhydramine 50mg/Ml Vial IV 06/14/25 21:28 50 mg ONCE ONE Administration Famotidine 20 mg 06/14/25 21:27 06/14/25 21:38 Famotidine 20mg/2ml Vial IV 06/14/25 21:28 20 mg ONCE ONE Administration Hydromorphone HCl 0.5 mg 06/14/25 21:44 06/14/25 21:47 Hydromorphone 2mg/Ml Syringe IV 06/14/25 21:45 0.5 mg ONCE ONE Administration Sodium Chloride 1,000 mls @ 999 mls/hr 06/14/25 19:55 06/14/25 21:09 Sod Chlor 0.9% 1000ml Bag IV 06/14/25 20:55 Infused .Q1H1M ONE Infusion Iopamidol 75 ml 06/14/25 20:47 06/14/25 20:48 Iopamidol-370 (76%);100ml Bottle IV 06/14/25 20:48 75 ml ONCE ONE Administration Methylprednisolone Sodium Succinate 125 mg 06/14/25 21:27 06/14/25 21:38 Methylprednisolone Sod Succ 125mg Vial IV 06/14/25 21:28 125 mg ONCE ONE Administration Morphine Sulfate 4 mg 06/14/25 19:55 06/14/25 20:05 Morphine 4mg/Ml Syringe IV 06/14/25 19:56 4 mg ONCE ONE Administration Morphine Sulfate 4 mg 06/14/25 21:11 06/14/25 21:18 Morphine 4mg/Ml Syringe IV 06/14/25 21:12 4 mg ONCE ONE Administration Ondansetron HCl 4 mg 06/14/25 19:55 06/14/25 20:05 Ondansetron 4mg/2ml Vial IV 06/14/25 19:56 4 mg ONCE ONE Administration Sodium Chloride 10 ml 06/14/25 20:47 06/14/25 20:48 Sodium Chloride 0.9% 10ml Syr (Rad Only) IV 06/14/25 20:48 10 ml ONCE ONE Administration Sodium Chloride 8 ml 06/14/25 21:27 Sodium Chloride 0.9% 10ml Vial IV 07/14/25 21:26 NEEDED PRN dilute pepcid Tamsulosin HCl 0.4 mg 06/14/25 21:39 06/14/25 21:42 Tamsulosin 0.4mg Capsule PO 06/14/25 21:40 0.4 mg ONCE ONE Administration ORDERS Category Date Time Status CT abdomen pelvis w con Stat Cat Scan 06/14/25 20:15 Completed CBC w/Auto Diff [Complete Blood Count Auto Diff] Stat Lab 06/14/25 19:49 Completed CMP [Comprehensive Metabolic Panel] Stat Lab 06/14/25 19:49 Completed Lipase Stat Lab 06/14/25 19:49 Completed PT INR [Prothrombin Time INR] Stat Lab 06/14/25 19:49 Completed Trop I [Troponin I] Stat Lab 06/14/25 21:30 Completed Troponin I Q3H Lab 06/15/25 00:15 Completed UA [Urinalysis and Microscopic] Stat Lab 06/14/25 20:52 Completed Urine Culture Stat Micro 06/14/25 20:54 Received Medical Decision Narrative: Patient is a 69-year-old male with a past medical history of kidney stones, hyperlipidemia, COPD, coronary artery disease who presented to the emergency department with left flank pain that started acutely at 5:30 PM. On arrival, patient is hemodynamically stable with unremarkable vital signs. Differential includes but not limited to: UTI, pyelonephritis, nephrolithiasis, AAA, diverticulitis, gastroenteritis amongst others. Patient's labs were reviewed and interpreted by myself: CBC showed no leukocytosis, hemoglobin was stable. INR was normal. CMP was unremarkable with normal creatinine of 1. UA showed no evidence of infection with 2+ blood. On my review of the CT scan, patient had a large left-sided kidney stone with severe hydro. Pending radiology read at this time. Patient's symptoms were markedly improved after morphine and IV fluids. On review of the CT scan by radiology there is a 7 x 7 x 9 mm left sided proximal ureteral stone with mild hydronephrosis. On return back from CT scan, patient was reporting chest pain that was different than his previous kidney stone. Patient was feeling nauseous and having abdominal pain and upset. Given my concern for possible contrast related reaction, patient was ordered Pepcid, Benadryl and steroids. Repeat EKG was obtained as well as troponins. Plan for further reassessment and possible transfer if pain is not controlled. Repeat EKG was obtained which showed normal sinus rhythm without acute ST or T wave changes concerning for ischemia. Initial troponin was less than 0.01. Patient continued to have pain and therefore was given 0.5 of Dilaudid. At this time I discussed possible transfer with the patient versus discharge home with pain medications. Patient wished to reevaluate prior to obtaining second troponin test for discharge home versus transfer for continued pain control. I felt this was appropriate. Patient was signed out to the oncoming provider pending reassessment and final disposition. <Sobia Medellin MD - Last Filed: 06/15/25 00:55> Vital Signs: 06/14/25 19:39 06/14/25 20:51 06/14/25 21:01 Temperature 98.2 F Temperature Source Temporal Artery Scan Pulse Rate 49 L 53 L Pulse Rate [Right Radial] 44 L Respiratory Rate 15 Blood Pressure 121/64 104/61 L Blood Pressure [Right Arm] 137/91 H Blood Pressure Mean [Right Arm] 106 Blood Pressure Source Blood Pressure Source [Right Arm] Automatic Cuff Blood Pressure Position Blood Pressure Position [Right Arm] Sitting 02 Sat by Pulse Oximetry 95 96 95 Oxygen Delivery Method Room Air 06/14/25 21:42 06/14/25 22:00 06/14/25 22:30 Temperature Temperature Source Pulse Rate 40 L 69 85 Pulse Rate [Right Radial] Respiratory Rate Blood Pressure 162/90 H 147/96 H 150/83 H Blood Pressure [Right Arm] Blood Pressure Mean [Right Arm] Blood Pressure Source Blood Pressure Source [Right Arm] Blood Pressure Position Blood Pressure Position [Right Arm] 02 Sat by Pulse Oximetry 95 96 97 Oxygen Delivery Method 06/14/25 23:01 06/14/25 23:30 06/15/25 00:00 Temperature Temperature Source Pulse Rate 42 L 51 L 70 Pulse Rate [Right Radial] Respiratory Rate Blood Pressure 130/70 142/64 H 133/77 Blood Pressure [Right Arm] Blood Pressure Mean [Right Arm] Blood Pressure Source Blood Pressure Source [Right Arm] Blood Pressure Position Blood Pressure Position [Right Arm] 02 Sat by Pulse Oximetry 96 95 95 Oxygen Delivery Method 06/15/25 00:24 Temperature 98.7 F Temperature Source Oral Pulse Rate 74 Pulse Rate [Right Radial] Respiratory Rate 16 Blood Pressure 133/77 Blood Pressure [Right Arm] Blood Pressure Mean [Right Arm] Blood Pressure Source Automatic Cuff Blood Pressure Source [Right Arm] Blood Pressure Position Sitting Blood Pressure Position [Right Arm] 02 Sat by Pulse Oximetry Oxygen Delivery Method Room Air Lab Data Lab Results 06/14/25 19:49: WBC 10.1, RBC 5.04, Hgb 15.7, Hct 47.0, MCV 93.3, MCH 31.2, MCHC 33.4, RDW 12.6, Plt Count 153, MPV 10.9 H, Neut % (Auto) 81.5 H, Lymph % (Auto) 10.1, [place] % (Auto) 5.3, Eos % (Auto) 2.5, Baso % (Auto) 0.4, Neut # (Auto) 8.2 H, Lymph # (Auto) 1.0, [place] # (Auto) 0.5, Eos # (Auto) 0.3, Baso # (Auto) 0.0, PT 11.5, INR 1.04, Sodium 136, Potassium 4.3, Chloride 104, Carbon Dioxide 24, Anion Gap 12.3, BUN 19, Creatinine 1.00, Estimated Creat Clear 106, Estimated GFR 74, Est GFR ( Amer) 89, Glucose 136 H, Calcium 9.0, Total Bilirubin 0.7, AST 24, ALT 20, Alkaline Phosphatase 95, Total Protein 7.6, Albumin 3.7, Globulin 3.9 H, Albumin/Globulin Ratio 0.9 L, Lipase 27 06/14/25 20:52: Urine Color Yellow, Urine Appearance Clear, Urine pH 5.5, Ur Specific [place] 1.025, Urine Protein Negative, Urine Glucose (UA) Negative, Urine Ketones Negative, Urine Blood 2+ A, Urine Nitrate Negative, Urine Bilirubin Negative, Urine Urobilinogen 0.2, Ur Leukocyte Esterase Trace, Urine RBC 10-20, Urine WBC 5-10, Ur Squamous Epith Cells 3-5, Urine Bacteria None 06/14/25 21:30: Troponin I < 0.01 06/15/25 00:15: Troponin I < 0.01 Orders (Tests/Meds): ED MEDICATIONS Discontinued Medications Generic Name Dose Route Start Last Admin Trade Name Charles PRN Reason Stop Dose Admin Diphenhydramine HCl 50 mg 06/14/25 21:27 06/14/25 21:38 Diphenhydramine 50mg/Ml Vial IV 06/14/25 21:28 50 mg ONCE ONE Administration Famotidine 20 mg 06/14/25 21:27 06/14/25 21:38 Famotidine 20mg/2ml Vial IV 06/14/25 21:28 20 mg ONCE ONE Administration Hydromorphone HCl 0.5 mg 06/14/25 21:44 06/14/25 21:47 Hydromorphone 2mg/Ml Syringe IV 06/14/25 21:45 0.5 mg ONCE ONE Administration Sodium Chloride 1,000 mls @ 999 mls/hr 06/14/25 19:55 06/14/25 21:09 Sod Chlor 0.9% 1000ml Bag IV 06/14/25 20:55 Infused .Q1H1M ONE Infusion Iopamidol 75 ml 06/14/25 20:47 06/14/25 20:48 Iopamidol-370 (76%);100ml Bottle IV 06/14/25 20:48 75 ml ONCE ONE Administration Methylprednisolone Sodium Succinate 125 mg 06/14/25 21:27 06/14/25 21:38 Methylprednisolone Sod Succ 125mg Vial IV 06/14/25 21:28 125 mg ONCE ONE Administration Morphine Sulfate 4 mg 06/14/25 19:55 06/14/25 20:05 Morphine 4mg/Ml Syringe IV 06/14/25 19:56 4 mg ONCE ONE Administration Morphine Sulfate 4 mg 06/14/25 21:11 06/14/25 21:18 Morphine 4mg/Ml Syringe IV 06/14/25 21:12 4 mg ONCE ONE Administration Ondansetron HCl 4 mg 06/14/25 19:55 06/14/25 20:05 Ondansetron 4mg/2ml Vial IV 06/14/25 19:56 4 mg ONCE ONE Administration Sodium Chloride 10 ml 06/14/25 20:47 06/14/25 20:48 Sodium Chloride 0.9% 10ml Syr (Rad Only) IV 06/14/25 20:48 10 ml ONCE ONE Administration Sodium Chloride 8 ml 06/14/25 21:27 Sodium Chloride 0.9% 10ml Vial IV 07/14/25 21:26 NEEDED PRN dilute pepcid Tamsulosin HCl 0.4 mg 06/14/25 21:39 06/14/25 21:42 Tamsulosin 0.4mg Capsule PO 06/14/25 21:40 0.4 mg ONCE ONE Administration ORDERS Category Date Time Status CT abdomen pelvis w con Stat Cat Scan 06/14/25 20:15 Completed CBC w/Auto Diff [Complete Blood Count Auto Diff] Stat Lab 06/14/25 19:49 Completed CMP [Comprehensive Metabolic Panel] Stat Lab 06/14/25 19:49 Completed Lipase Stat Lab 06/14/25 19:49 Completed PT INR [Prothrombin Time INR] Stat Lab 06/14/25 19:49 Completed Trop I [Troponin I] Stat Lab 06/14/25 21:30 Completed Troponin I Q3H Lab 06/15/25 00:15 Completed UA [Urinalysis and Microscopic] Stat Lab 06/14/25 20:52 Completed Urine Culture Stat Micro 06/14/25 20:54 Received Medical Decision Narrative: Patient is a 69-year-old male with a past medical history of kidney stones, hyperlipidemia, COPD, coronary artery disease who presented to the emergency department with left flank pain that started acutely at 5:30 PM. On arrival, patient is hemodynamically stable with unremarkable vital signs. Differential includes but not limited to: UTI, pyelonephritis, nephrolithiasis, AAA, diverticulitis, gastroenteritis amongst others. Patient's labs were reviewed and interpreted by myself: CBC showed no leukocytosis, hemoglobin was stable. INR was normal. CMP was unremarkable with normal creatinine of 1. UA showed no evidence of infection with 2+ blood. On my review of the CT scan, patient had a large left-sided kidney stone with severe hydro. Pending radiology read at this time. Patient's symptoms were markedly improved after morphine and IV fluids. On review of the CT scan by radiology there is a 7 x 7 x 9 mm left sided proximal ureteral stone with mild hydronephrosis. On return back from CT scan, patient was reporting chest pain that was different than his previous kidney stone. Patient was feeling nauseous and having abdominal pain and upset. Given my concern for possible contrast related reaction, patient was ordered Pepcid, Benadryl and steroids. Repeat EKG was obtained as well as troponins. Plan for further reassessment and possible transfer if pain is not controlled. Repeat EKG was obtained which showed normal sinus rhythm without acute ST or T wave changes concerning for ischemia. Initial troponin was less than 0.01. Patient continued to have pain and therefore was given 0.5 of Dilaudid. At this time I discussed possible transfer with the patient versus discharge home with pain medications. Patient wished to reevaluate prior to obtaining second troponin test for discharge home versus transfer for continued pain control. I felt this was appropriate. Patient was signed out to the oncoming provider pending reassessment and final disposition. [place]: Upon my assumption of care patient is stable, resting comfortably, he states his flank pain and his chest pain/upper abdominal discomfort has completely resolved. Patient reports he does not think it was anything related to his heart and believes the upper abdominal discomfort was related to the IV contrast because it happened as soon as he received IV contrast and resolved after getting medications for reaction. I reviewed the workup from Dr. Osborne and agree with the assessment and plan. Patient's repeat troponin is pending. Repeat troponin also undetectably low less than 0.01 reassuring in the setting of patient having no ongoing symptoms and nonischemic ECG. Patient has no pain at this time and is resting comfortably. I discussed transfer with the patient and recommended it due to the size of his stone and the amount of pain medications he required to become comfortable initially, but he is refusing. I also recommended to the patient that he stay for a third troponin to rule out the possibility of an ischemic event given he does have a history of CAD, however patient is adamant he does not think this is related to his heart and that he will come back to the ER if he redevelops any symptoms. He does not want to stay for another troponin. He would like to go home since he is feeling well at this time. He has a urologist in [place] he typically follows with and he has also been referred to Dr. Linares. Patient is reasonable, understanding, and has capacity to make these decisions. Since he is stable and not requiring any ongoing treatment at this time I believe he is appropriate for discharge since he is willing to come back to the ER if he redevelops any concerning symptoms. I prescribed oxycodone, Zofran, tamsulosin for outpatient management of symptoms. I counseled and educated the patient and his family at bedside extensively on risks of going home prematurely and the necessity to come back to the ER with the development of any concerning symptoms which I went over at length including any cardiac symptoms or signs of infection or kidney dysfunction. Patient was given instructions on symptomatic management, follow up instructions, and return precautions for the emergency department. Patient indicated understanding and was discharged in stable condition. Critical Care <Anh Osborne, DO - Last Filed: 06/14/25 22:25> Critical Care Time Critical Care Time: No
[2025-06-14 20:01] LABS: Hematocrit 47.0 % (42.0-52.0); Hemoglobin 15.7 g/dL (14.1-18.0); Immature Granulocytes % 0.2 %; Mean Corpuscular HGB Conc 33.4 g/dL (31.8-35.4); Mean Corpuscular Hemoglobin 31.2 pg (27.0-31.2); Mean Corpuscular Volume 93.3 fl (80-94); Nucleated Red Blood Cells % 0 %; Platelet Count 153 K/mm3 (142-424); Red Blood Count 5.04 M/mm3 (4.60-6.20); Red Cell Distribution Width-SD 43.5 fL; White Blood Count 10.1 K/mm3 (4.8-10.8)
[2025-06-14] MEDS: 0.9 % SODIUM CHLORIDE 1000ML 1,000 ML 999 ML IV (20:04)
[2025-06-14] MEDS: ONDANSETRON 4MG/2ML VIAL 4 MG IV (20:05)
[2025-06-14] MEDS: MORPHINE 4MG/ML SYRINGE 4 MG IV ×2 (20:05→21:18)
[2025-06-14 20:08] LABS: Alanine Aminotransferase 20 U/L (12-78); Albumin Level 3.7 g/dl (3.5-5.0); Albumin/Globulin Ratio 0.9 (1.1-1.8); Alkaline Phosphatase 95 U/L (38-126); Anion Gap 12.3 mEq/L (5-15); Aspartate Amino Transferase 24 U/L (17-59); Bilirubin,Total 0.7 mg/dl (0.2-1.3); Blood Urea Nitrogen 19 mg/dl (9-20); Calcium 9.0 mg/dl (8.4-10.2); Carbon Dioxide 24 mmol/L (22.0-30.0); Chloride 104 mmol/L (98-107); Creatinine Clearance Estimated 106 mL/min (50-200); Creatinine,Serum 1.00 mg/dl (0.66-1.25); Estimated Glomerular Filt Rate 74 ml/min (>60); GFR (African American) 89 ML/MIN (>60); Globulin 3.9 g/dL (1.3-3.2); Glucose 136 mg/dl (74-100); Lipase 27 U/L (23-300); Potassium 4.3 mmoL/L (3.5-5.1); Sodium 136 mmol/L (136-145); Total Protein,Serum 7.6 g/dl (6.3-8.2)
[2025-06-14 20:10] LABS: INR 1.04 (0.9-1.1); Prothrombin Time 11.5 seconds (10.1-12.5)
--- NOTE | 2025-06-14 20:15 | CT_ITS ---
PROCEDURE INFORMATION: Exam: CT Abdomen And Pelvis With Contrast Exam date and time: 06/14/2025 8:42 PM Age: 69 years old Clinical indication: Abdominal pain; Additional info: Left flank pain TECHNIQUE: Imaging protocol: Computed tomography of the abdomen and pelvis with contrast. Radiation optimization: All CT scans at this facility use at least one of these dose optimization techniques: automated exposure control; mA and/or kV adjustment per patient size (includes targeted exams where dose is matched to clinical indication); or iterative reconstruction. Contrast material: ISOVUE; Contrast volume: 75 ml; Contrast route: IV; COMPARISON: CT ABDOMEN PELVIS WO CON 09/03/2022 7:17 AM FINDINGS: Lungs: Trace dependent atelectasis likely positional. Heart: Aortic valve calcification is present, often associated with aortic stenosis. Coronary arteries: Calcific coronary artery disease is evident. Liver: Multiple suspected liver cysts are present, requiring no further evaluation, as large as 3.5 cm. Gallbladder and biliary ducts: Normal. No calcified stones. No ductal dilation. Pancreas: Normal. No ductal dilation. Spleen: Normal. No splenomegaly. Adrenal glands: There is unchanged multilobulated benign adenomatous enlargement of the adrenal glands, no further followup recommended. Kidneys and ureters: 7 x 7 x 9 mm left-sided proximal ureteral stone. Mild hydronephrosis. Nonobstructive bilateral kidney stones measure as large as 11 x 12 mm. Stomach and bowel: Fatty infiltration of the wall of the sigmoid colon is suspicious for prior recurrent/chronic inflammation. No convincing acute inflammatory process of the sigmoid. Prior inflammatory bowel disease is conceivable. Stool in the terminal ileum could indicate an incompetent ileocecal valve. No inflammation. Appendix: Normal appendix. Intraperitoneal space: Unremarkable. No free air. No significant fluid collection. Vasculature: Unremarkable. No abdominal aortic aneurysm. Incidental pelvic phlebolith formation. Lymph nodes: Nonspecific prominent lymph nodes in the deep drainage pattern of the liver are most likely reactive. Urinary bladder: Unremarkable as visualized. Reproductive: The prostate gland contains benign-appearing calcifications that are likely parenchymal. Bones/joints: L4-L5 disc replacement and pedicle screw fusion. Facet joint degenerative changes are present. Multifocal neural foraminal stenosis, due to degeneration. T12 compression deformity is unchanged. Soft tissues: Unremarkable. IMPRESSION: 7 x 7 x 9 mm left-sided proximal ureteral stone. Mild hydronephrosis.
[2025-06-14] MEDS: IOPAMIDOL-370 (76%);100ML BOTTLE 75 ML IV (20:48)
[2025-06-14] MEDS: SODIUM CHLORIDE 0.9% 10ML SYR (RAD ONLY) 10 ML IV (20:48)
[2025-06-14 20:57] LABS: Microscopic, Urine URINE MICROSCOPIC (MICROSCOPIC)
[2025-06-14 21:04] LABS: Bilirubin,Urine Negative (Negative); Color,Urine YELLOW (Yellow); Glucose,Urine (UA) Negative (Negative); Ketones,Urine Negative (Negative); Leukocyte Esterase,Urine TRACE (Negative); PH,Urine 5.5 (5.0-8.5); Protein,Urine Negative (Negative); Specific Gravity, Urine 1.025 (1.005-1.030); Urobilinogen,Urine 0.2 EU/dl (0.2)
--- NOTE | 2025-06-14 21:30 | ECG_ITS ---
APPROVED REPORT Exam: Resting ECG HR:76 bpm ECG Measurements Heart Rate 76 AXES OK 151 P 71 QRSd 100 QRS 79 QT 402 T 14 QTc 433 Conclusion SINUS RHYTHM WITH FREQUENT VENTRICULAR PREMATURE COMPLEXES MINIMAL ST DEPRESSION [0.025+ mV ST DEPRESSION] ABNORMAL RHYTHM ECG Electronically signed by : AMIRAH BRITO, 06/15/2025 22:37:48
[2025-06-14] MEDS: METHYLPREDNISOLONE SOD SUCC 125MG VIAL 125 MG IV (21:38)
[2025-06-14] MEDS: FAMOTIDINE 20MG/2ML VIAL 20 MG IV (21:38)
[2025-06-14] MEDS: TAMSULOSIN 0.4MG CAPSULE 0.4 MG PO (21:42)
[2025-06-14] MEDS: HYDROMORPHONE 2MG/ML SYRINGE 0.5 MG IV (21:47)
[2025-06-14 22:09] LABS: Troponin I < 0.01 ng/ml (0.00-0.034)
[2025-06-15] VITALS: BP 133/77; PULSE 70; O2SAT 95
[2025-06-15 00:24] VITALS: BP 133/77; PULSE 74; RESP 16; TEMP 37.1; O2SAT 95
[2025-06-15 00:50] LABS: Troponin I < 0.01 ng/ml (0.00-0.034)
== END 2025-06-15 00:36 | disposition home or self-care (01) ==
PROVIDERS: Emergency Provider Student in an Organized Health Care Education/Training Program; PCP Nurse Practitioner Family
DX: N13.0 Hydronephrosis with ureteropelvic junction obstruction (principal); R10.A2 Flank pain, left side; R11.2 Nausea with vomiting, unspecified; M54.59 Other low back pain; F17.210 Nicotine dependence, cigarettes, uncomplicated; R07.9 Chest pain, unspecified; I25.118 Atherosclerotic heart disease of native coronary artery with other forms of angina pectoris; I50.20 Unspecified systolic (congestive) heart failure; J44.9 Chronic obstructive pulmonary disease, unspecified; E78.5 Hyperlipidemia, unspecified
CPT/HCPCS: 74177; 80053; 81001; 83690; 84484; 85025; 85610; 87086; 93005; 96361; 96374; 96375; 96376; 99285; J1171; J1200; J1308; J2270; J2405; J2919; J7030; Q9967

== ENCOUNTER 2025-06-23 09:36 | Emergency (ER) | payer MEDICARE, BC, SELFPAY ==
[2025-06-23] VITALS (8 sets, daily range): BP systolic 113–143; BP diastolic 48–76; PULSE 36–75; RESP 14–18; TEMP 36.9–37.2; O2SAT 90–99; BMI 30.8
--- OUTSIDE RECORDS SUMMARY | 2025-06-23 09:45 | XMS_ITS | Referral Summary ---
Author Organization [employer] ([place], [place], [place], [place], [place]) Address [address] [place] [address] Care Team Providers Care Bead Machine Operator Name Role Phone Elle Sal APRN Primary Care Provider [phone] Allergies No known active allergies Medications varenicline [...] drink = 0.6 oz pur e alcohol) [facility] Intimate Partner Violence Answer Da [...] on file Medical Devices Implanted Type Area Masonry Contractor Device Identifier Shelf Expiration Date Model / Serial / Lot Bone Matrx Vivigen Prefilled Bl-1900-001 - [id number] Implanted:Qty : 1 on 10/16/2024 by Franco Mendes MD at [facility] IMPLANTS N/A: Spine Lumbar LIFENET:LIFENET TRANSPLANT SRV 09/12/2025 BL-1900-001 / [id number] / Cage T/Plif 13mm Eit 8d 10/05 [id number] - [id number] Implanted:Qty : 1 on 10/16/2024 by Franco Mendes MD at [facility] IMPLANTS N/A: Spine Lumbar J &J:DEPUY:DEPUY SPINE 07/14/2034 [id number] / / [id number] Imp Vpr Prm Cfxfen Xtab 7x50mm [id number] - Implanted:Qty : 4 on 10/16/2024 by Franco Mendes MD at [facility] IMPLANTS N/A: Spine Lumbar J &J:DEPUY:DEPUY SPINE [id number] / / Mis Susi Ply Scrw Set Ti - [id number] Implanted:Qty : 4 on 10/16/2024 by Franco Mendes MD at [facility] IMPLANTS N/A: Spine Lumbar J &J:DEPUY:DEPUY SPINE / / Arcenio Spine Viper 6.80p56eg - [id number] Implanted:Qty : 2 on 10/16/2024 by Franco Mendes MD at [facility] IMPLANTS N/A: Spine Lumbar J &J:DEPUY:DEPUY SPINE / / Explanted Type Area Masonry Contractor Device Identifier Shelf Expiration Date Model / Serial / Lot Wire Nitonal 2866-05-320 - [id number] Explanted:Qty : 2 on 10/16/2024 at [facility] IMPLANTS N/A: Spine Lumbar J &J:DEPUY:DEPUY SPINE 2866-12-15 20 / 2866-12-15 20 / Insurance MEDICARE PART A B COMMERCIAL Care Teams Bead Machine Operator Relationship Specialty Start Date End Date Elle Sal APRN [address] [address] PCP - General Nurse Practitioner 10/16/24
--- OUTSIDE RECORDS SUMMARY | 2025-06-23 09:45 | XMS_ITS | Clinical Summary ---
Author Organization [employer] ([place], [place], [place], [place], [place]) Address [address] [place] [address] Care Team Providers Care Airplane Rigger Name Role Phone Elle Sal APRN Primary Care Provider [phone] Allergies No known active allergies Medications varenicline [...] 11/09/2021, 2019 Medical Devices Implanted Type Area Seamless Hosiery Knitter Device Identifier Shelf Expiration Date Model / Serial / Lot Bone Matrx Vivigen Prefilled -1900-001 - [id number] Implanted:Qty : 1 on 10/16/2024 by Franco Mendes MD at [facility] IMPLANTS N/A: Spine Lumbar LIFENET:LIFENET TRANSPLANT SRV 09/12/2025 -1900-001 / [id number] / Cage T/Plif 13mm Eit 8d 10/05 [id number] - [id number] Implanted:Qty : 1 on 10/16/2024 by Franco Mendes MD at [facility] IMPLANTS N/A: Spine Lumbar J &J:DEPUY:DEPUY SPINE 07/14/2034 [id number] / / [id number] Imp Vpr Prm Cfxfen Xtab 7x50mm [id number] - [id number] Implanted:Qty : 4 on 10/16/2024 by Franco Mendes MD at [facility] IMPLANTS N/A: Spine Lumbar J &J:DEPUY:DEPUY SPINE [id number] / [id number] / Mis Susi Ply Scrw Set Ti 186-15-000 - [id number] Implanted:Qty : 4 on 10/16/2024 by Franco Mendes MD at [facility] IMPLANTS N/A: Spine Lumbar J &J:DEPUY:DEPUY SPINE / / Arcenio Spine Viper 6.89q90wy 040 - [id number] Implanted:Qty : 2 on 10/16/2024 by Franco Mendes MD at [facility] IMPLANTS N/A: Spine Lumbar J &J:DEPUY:DEPUY SPINE / / Explanted Type Area Seamless Hosiery Knitter Device Identifier Shelf Expiration Date Model / Serial / Lot Wire Nitonal 2866-12-320 - [id number] Explanted:Qty : 2 on 10/16/2024 at [facility] IMPLANTS N/A: Spine Lumbar J &J:DEPUY:DEPUY SPINE 2866-12-15 20 / 2866-12-15 20 / Insurance MEDICARE PART A B GENERIC COMMERCIAL Care Teams Airplane Rigger Relationship Specialty Start Date End Date Elle Sal, TRAINS DISPATCHER SUPERVISOR [address] [place] [address] PCP - General Nurse Practitioner 10/16/24
--- OUTSIDE RECORDS SUMMARY | 2025-06-23 09:45 | XMS_ITS | Data Portability ---
Author Organization [facility] ISAIAH Dennison POWELL CLOSED Address [address] [place] [address] Care Team Providers Care Heading And Priming Tool Setter Name Role Phone SUMMER HENSON Referring Provider Assessment Encounter Date Assessment Date Assessment LastModified by Organization Details LastModified Time 07/23/2024 07/23/2024 Assessment: Orin Chaves is a 68-year-old presents to the clinic for evaluation of low back pain with radiation to left lower extremity x 2 years. Patient presents with disc containing completed lumbar MRI through [facility] on 05/28/2024. Patient reports no inciting event [...] surgery. Patient to meet with Patrica, our chief crew scheduler, during today's visit. Imaging: I personally reviewed the imaging with Dr. Robles and discussed the below findings. Lumbar MRI completed through [facility] on 05/28/2024 and brought in on disc today. Patient has apparent L4-5 spondylolisthesis with bilateral neuroforaminal stenosis. Patient additionally has evidence of synovial cyst to the above described level. Plan: Candidate for MIS L4-5 TLIF [email or web address] Not available 07/23/2024 10:05:09 11/01/2024 11/01/2024 Mr. Chaves presents today status post MIS L4-L5 TLIF 08/22. [place] removed with no issues or concerns. All questions answered. [email or web address] Not available 11/01/2024 14:16:22 11/29/2024 11/29/2024 Assessment: Orin Chaves is a 69-year-old presenting to the clinic status post MIS L4-5 TLIF on 10/16/[address] Robles. Patient presents with completed lumbar x-rays through [facility] on 11/29/2024. Since surgery, patient reports [...] Lumbar x-rays were completed on 11/29/2024 that [facility] to reveal intact hardware with no [...] l spine , 2 or 3 view [facility] [address] [place] [address] Patitree t Name: ORIN prescott : [birth year] Chin prescott 65 Orderi ng Provid er: KYMBERLY ROBLES EXAM DATE: 2024 EXAM: XR LUMBAR AP/LAT CLINIC AL INFORM ATION: Back pain. IMAGES PROVID ED: AP, latera l and coned down views of the lumbar spine. COMPAR BANDAR: None. FINDIN GS: Previo us L4-5 computer application developer ior fixati on and interb hernesto fusion [...] Bullard MD on 025 11:14 AM [email or web address] [facility] Radiology [facility] [address] [place], [address], 01/08/2025 08:32:07 03/07/2003/07/2025 XR, lumbo sacra l spine , 2 or 3 view [facility] [address] [place] [address] Patitree t Name: ORIN prescott : [birth year] [...] Bullard MD on 025 10:04 AM [email or web address] [facility]iology [address] [place], [address], 04/04/2025 09:43:38 Result Notes Documentation Provider Name and Address Organization Details Recorded Time Xr, Lumbosacral Spine, 2 Or 3 View : [facility] [address] [place] [address] Patient Name: ORIN CHAVES Patient : 1955 [...] Interpreted By: Shahram Bullard MD Mino malin [facility] 01/08/2025 08:32:07 Xr, Lumbosacral Spine, 2 Or 3 View : [facility] [address] [place] [address] Patient Name: ORIN CHAVES Patient : 1955 [...] Interpreted By: Shahram Bullard MD Kaitlynn Barreto [facility] 04/04/2025 09:43:38 Medical Equipment None Reported. [...] Updated DateTime 11/29/2024 187.96 cm 33.1 kg/m2 555854.83 g 122/82 mm[Hg] [facility] 11/29/2024 11:22:06 Date Recorded Body height Provider Name an d Address Organization Details Last Updated DateTime 03/07/2025 187.96 cm [facility] 03/07/2025 10:06:34 Date Recorded Body height Body mass index (BMI) Body weight Systolic And Diastolic Provider Name and Address Organization Details Last Updated DateTime 07/23/2024 187.96 cm 33.1 kg/m2 551573.83 g 122/82 mm[Hg] [facility] 07/23/2024 09:25:48 Social History None recorded. Functional Status None recorded. Mental Status None recorded. Family History Nothing Reported. Medical History Condition Response TENS Unit for current problem N Traction for current problem N Massage Therapy for current problem N Other N Gout N Neuro-modulating Drugs for current probl em Y Hyperthyroidism N Emphysema N Narcotic Pain Medication for current pro blem N Black Lung N Steroid Pack for current problem N NSAID Use N Hypothyroidism N COPD Y Injections for current problem Y Osteoporosis/Osteopenia N Heart Attack (NM) N Deep Vein Thrombosis N Mental Illness N Diabetes N Bleeding Disorder N Arthritis Y Tuberculosis N Genetic Disorder N AIDS/HIV N Chiropractor treatment for current probl em N Kidney Failure N Cancer N Stroke N Asthma N Ultrasound Treatment for current problem N Epilepsy/Seizures N Sleep Apnea N Thyroid Disorder N High Cholesterol N Physical Therapy Treatments for current problem N Liver Disease N Pulmonary Embolism N Fibromyalgia N Dialysis N Hypertension N Kidney Disease N Past Encounters Encounter ID Performer Location Encounter Start Date Encounter Closed Date Diagnosis/Indication Diagnosis SNOMED-CT Code Diagnosis ICD10 Code Diagnosis IMO Codes Diagnosis Note [id number] YAKELIN TIJERINA PA-C [facility] [address] [place] [address] 07/23/2024 08:46:48 07/24/2024 04:19:22 Lumbar spondylolisthesis 8915456859 32282 M43.16 Lumbar radiculopathy 128 728689 M54.16 [id number] PAUL ROBLES MD SURGERY SCHEDULE [address] [place] [address] 10/24/2024 14:44:18 11/01/2024 08:25:41 [id number] PAUL ROBLES MD [facility] [address] [place] [id number] 11/01/2024 13:47:58 11/09/2024 08:58:53 [id number] YAKELIN TIJERINA PA-C [facility] [address] [place] [id number] 11/29/2024 11:10:13 12/04/2024 05:00:52 Postoperative visit [id number] Z48.89 [id number] PAUL ROBLES MD [facility] [address] [place] [address] 03/07/2025 09:41:27 03/08/2025 05:29:40 Postoperative visit [id number] Z48.89 [id number] Health Concerns Section Related Observation LastModified by Organization Detai ls LastModified Time None Recorded Concern Status LastModified by Organization Details LastModified Time None Recorded Advance Directives Directive None Recorded Payers Insurance Date Sequence Insurance Name Policy Number Policy Torres Covered Member ID Torres Member ID Guarantor Name 03/04/2025 2 [place] [employer] 111 Orin Chaves [id number] Orin Chaves 03/04/2025 1 [place] Orin Chaves [id number] Orin Chaves Notes Date Note Type Note Provider Name and Address Organization Details Recorded Time 07/23/2024 text/html ROS as noted in the HPI Orin Chaves is a 68-year-old presents to the clinic for evaluation of low back pain with radiation to left lower extremity x 2 years. Patient presents with disc containing completed lumbar MRI through [facility] on 05/28/2024. Patient reports no inciting event [...] in clinic today. YAKELIN TIJERINA PA-C [address] [place], [address], [facility] 07/23/2024 10:05:32 11/29/2024 text/html ROS as noted in the HPI Orin Chaves is a 69-year-old presenting to the clinic status post MIS L4-5 TLIF on 10/16/[address] Robles. Patient presents with completed lumbar x-rays through [facility] on 11/29/2024. Since surgery, patient reports [...] I in clinic today. YAKELIN TIJERINA PA-C [facility] [place], [address], [facility] 12/03/2024 15:21:11 03/07/2025 text/html ROS as noted in the HPI Mr. Chaves is doing well after minimally invasive L4-5 fusion performed on October 16, 2024. This is a second follow-up. He does continue to have some right sided back pain, but nothing as severe as his preoperative symptoms. He underwent x-rays prior to this visit. PAUL ROBLES MD [facility] [place], [address], [facility] 03/07/2025 10:15:46
--- NOTE | 2025-06-23 09:58 | HMH.EDGENADL ---
Discharge Plan Disposition Chief Complaint: PAIN Prescriptions Prescriptions: No Action tamsulosin 0.4 mg capsule 0.4 mg PO DAILY Anoro Ellipta 62.5-25 mcg/actuation blister with device 1 inh inhalation DIRECTED metoprolol succinate [Toprol XL] 25 mg tablet extended release 24 hr 25 mg PO DAILY Qty: 30 5RF rosuvastatin [Crestor] 10 mg tablet 10 mg PO DAILY Qty: 30 2RF aspirin [Adult Aspirin Regimen] 81 mg tablet,delayed release (DR/EC) 81 mg PO DAILY Qty: 30 2RF Trelegy Ellipta 200-62.5-25 mcg blister with device 1 inh inhalation nicotine (polacrilex) 2 mg gum 2 mg buccal Q2H PRN (Reason: nicotine cravings) Qty: 100 2RF albuterol sulfate 90 mcg/actuation HFA aerosol inhaler inhalation varenicline tartrate 1 mg tablet 1 mg PO ONCE Jardiance 10 mg tablet 10 mg PO DAILY Qty: 90 3RF gabapentin 400 mg capsule 400 mg PO TID finasteride 5 mg tablet 5 mg PO DAILY sacubitril-valsartan [Entresto] 24-26 mg Tablet 1 tab PO BID 30 Days Qty: 30 1RF oxycodone 5 mg tablet 5 mg PO Q6H PRN (Reason: pain) Qty: 10 0RF tamsulosin 0.4 mg capsule 0.4 mg PO HS Qty: 10 0RF ondansetron 4 mg tablet,disintegrating 4 mg PO Q6H PRN (Reason: nausea and vomiting) Qty: 14 0RF Referrals Follow up/Referrals: Elle Sal APRN [Primary Care Provider, Medical] - See instructions Print Language Print Language: Prydeinig Discharge ED Provider: Brittney Iglesias General Adult HPI General Chief complaint: PAIN Stated complaint: pain in lower left side, nausea Time Seen by Provider: 06/23/25 09:58 Mode of Arrival: Ambulatory Source of Information: Patient Description of Symptoms (Recalled from ER Triage Doc. by RN): patient states he has had left flank pain since lastnight, has known kidney stone sharp stabbing pain that is constant. 02/21 History of Present Illness HPI narrative: Patient is a 69-year-old with past medical history significant for heart failure reduced ejection fraction COPD ureteral calculi CAD presents to the emergency department with left flank pain. Patient has had left flank pain for over 2 weeks diagnosed with a 7 x 7 x 9 mm kidney stone with obstruction and has not been able to see a urologist for outpatient follow-up but currently has an appointment scheduled for this Tuesday. Initially diagnosed with kidney stone on [address] abdomen pelvis with IV contrast significant for the finding of the stone. Has been taking tamsulosin as needed oxycodone for pain however today patient had excruciating pain in the left flank and ability to tolerate p.o. with decreased p.o. intake. No fever feeling like he is not able to pee. Last peed yesterday evening. Related Data Home Medications ?Medication ?Instructions ?Recorded ?Confirmed finasteride 5 mg tablet 5 mg PO DAILY bph 09/03/22 10/03/24 gabapentin 400 mg capsule 400 mg PO TID neuropathy 09/03/22 10/03/24 tamsulosin 0.4 mg capsule 0.4 mg PO DAILY 05/15/24 10/03/24 umeclidinium 62.5 mcg-vilanterol 1 inh inhalation DIRECTED 05/15/24 10/03/24 25 mcg/actuation powdr for inhalation (Anoro Ellipta) albuterol sulfate 90 mcg/actuation inhalation 09/11/24 10/03/24 aerosol inhaler fluticasone fur. 200 mcg-umeclid 1 inh inhalation 09/28/24 10/03/24 62.5 mcg-vilant 25 mcg inhalat.powder (Trelegy Ellipta) varenicline tartrate 1 mg tablet 1 mg PO ONCE 10/03/24 10/03/24 Previous Rx's ?Medication ?Instructions ?Recorded aspirin 81 mg tablet,delayed 81 mg PO DAILY #30 tabs 09/25/24 release (Adult Aspirin Regimen) metoprolol succinate 25 mg 25 mg PO DAILY #30 tabs 09/25/24 tablet,extended release 24 hr (Toprol XL) rosuvastatin 10 mg tablet (Crestor) 10 mg PO DAILY #30 tabs 09/25/24 sacubitril 24 mg-valsartan 26 mg 1 tab PO BID 30 days #30 tabs 09/26/24 tablet (Entresto) nicotine (polacrilex) 2 mg gum 2 mg buccal Q2H PRN nicotine 09/28/24 cravings #100 ea empagliflozin 10 mg tablet 10 mg PO DAILY #90 tabs 10/03/24 (Jardiance) ondansetron 4 mg disintegrating 4 mg PO Q6H PRN nausea and 06/15/25 tablet vomiting #14 tabs oxycodone 5 mg tablet 5 mg PO Q6H PRN pain #10 tabs 06/15/25 tamsulosin 0.4 mg capsule 0.4 mg PO HS #10 caps 06/15/25 Allergies Allergy/AdvReac Type Severity Reaction Status Date / Time No Known Allergies Allergy Verified 10/03/24 14:46 [facility] Disclaimer: The information contained in this section may have been updated after the patient was seen, as this information can be updated by other users. Medical History (Updated 06/15/25 @ 00:29 by Sobia Medellin MD) HFrEF (heart failure with reduced ejection fraction) Tobacco abuse counseling Tobacco abuse Encounter for screening for malignant neoplasm of lung COPD mixed type Smoking greater than 30 pack years Coronary artery disease Encounter for pre-operative cardiovascular clearance Atypical angina Cardiomyopathy Hyperlipidemia LV dysfunction Lumbar radiculopathy Enlarged prostate Hernia Surgical History History of surgery History of surgery Family History Father Throat cancer Social History Smoking Status: Current every day smoker tobacco type: cigarettes packs per day: 2 years smoked: 50 second hand exposure: No alcohol intake: never counseling provided: provider counseling substance use type: denies use current occupational status: retired Travel in the last 8 weeks?: None household members: spouse housing: house current occupation: [employer] current occupational exposures/hazards: No caffeine: Yes Have you lived/traveled outside US in past 30 days?: No Contact w/someone who lives/traveled outside US past 30 days?: No Exposure to someone with infectious disease in past 14 days?: No Do you have a fever (greater than 100.4 F or 38 C)?: No Have you tested positive for COVID-19?: No Exposed to someone with COVID-19 in past 14 days?: No Do you have a sore throat?: No Do you have a cough?: No Do you have any weakness?: No Do you have any diarrhea?: No Are you experiencing any unusual bleeding?: No Do you have any muscle aches/pain?: No Do you have any abdominal pain?: No Are you experiencing loss of taste or smell?: No Other Medical History Have you received the Flu Vaccine for this season: No Have you received the Pneumonia Vaccine: No ROS Obtained: Yes All systems reviewed & no additional complaints except as documented Physical Exam General General appearance: alert Comment: Uncomfortable lying in bed unable to sit still Chest Chest inspection: Present normal inspection and symmetric chest wall rise Respiratory Respiratory exam: Absent respiratory distress Cardiovascular Cardiovascular exam: Present regular rate, normal rhythm and other (Frequent PVCs noted on telemetry) Abdominal Exam Abdominal exam: Present soft and tenderness (Left lower quadrant and left flank); Absent distention Extremities Exam Extremities exam: Absent edema Back Exam Back exam: Present CVA tenderness (L) Neurological Exam Neurological exam: Present alert and oriented X3 Medical Decision Making Medical Records Screening: Per USPSTF and CDC recommendations, given the prevalence of disease in our region, it is our hospital?s policy to screen for HIV and viral Hepatitis for all patients aged 18 and over and those with ongoing risk factors. Francisco Inquiry Pt receiving controlled substance: Yes Francisco was queried for this patient: No Risks and benefits of using a controlled substance: were discussed with pt by me Vital Signs: 06/23/25 09:45 06/23/25 09:52 06/23/25 09:52 Temperature 98.4 F Temperature Source Oral Pulse Rate 67 68 Pulse Rate [Right Radial] 66 Respiratory Rate 18 Blood Pressure 117/76 Blood Pressure [Right Arm] 117/76 Blood Pressure Mean 89 Blood Pressure Mean [Right Arm] 89 02 Sat by Pulse Oximetry 95 95 97 Oxygen Delivery Method Room Air Room Air Room Air 06/23/25 10:01 06/23/25 10:31 06/23/25 11:01 Temperature Temperature Source Pulse Rate 39 L 36 L 71 Pulse Rate [Right Radial] Respiratory Rate 17 17 Blood Pressure 127/71 113/48 L 131/59 L Blood Pressure [Right Arm] Blood Pressure Mean Blood Pressure Mean [Right Arm] 02 Sat by Pulse Oximetry 90 L 95 93 L Oxygen Delivery Method Room Air Room Air Room Air 06/23/25 11:30 06/23/25 12:00 Temperature Temperature Source Pulse Rate 75 71 Pulse Rate [Right Radial] Respiratory Rate 15 14 Blood Pressure 134/70 143/67 H Blood Pressure [Right Arm] Blood Pressure Mean Blood Pressure Mean [Right Arm] 02 Sat by Pulse Oximetry 97 95 Oxygen Delivery Method Room Air Room Air Lab Data Lab Results 06/23/25 09:50: WBC 8.5, RBC 5.27, Hgb 16.4, Hct 49.8, MCV 94.5 H, MCH 31.1, MCHC 32.9, RDW 12.8, Plt Count 147, MPV 10.8 H, Neut % (Auto) 68.3, Lymph % (Auto) 18.7, Borden % (Auto) 8.9, Eos % (Auto) 3.2, Baso % (Auto) 0.5, Neut # (Auto) 5.8, Lymph # (Auto) 1.6, Borden # (Auto) 0.8, Eos # (Auto) 0.3, Baso # (Auto) 0.0, Sodium 136, Potassium 4.4, Chloride 103, Carbon Dioxide 27, Anion Gap 10.4, BUN 16, Creatinine 1.20, Estimated Creat Clear 88, Estimated GFR 60, Est GFR ( Amer) 72, Glucose 114 H, Calcium 8.9, Total Bilirubin 0.7, AST 27, ALT 21, Alkaline Phosphatase 73, Troponin I < 0.01, NT-Pro-B Natriuret Pep 1100 H, Total Protein 6.9, Albumin 4.0, Globulin 2.9, Albumin/Globulin Ratio 1.4, HCV Ab MARLEN w/Rflx PCR Qn Negative, HIV Ag/Ab Combo Qual Negative 06/23/25 11:16: Urine Color Yellow, Urine Appearance Clear, Urine pH 5.5, Ur Specific Phillips >= 1.030, Urine Protein Negative, Urine Glucose (UA) Negative, Urine Ketones Negative, Urine Blood 1+ A, Urine Nitrate Negative, Urine Bilirubin Negative, Urine Urobilinogen 0.2, Ur Leukocyte Esterase Negative, Urine RBC Occasional, Urine WBC None, Ur Squamous Epith Cells None, Urine Bacteria None 06/23/25 09:50 06/23/25 09:50 Orders (Tests/Meds): ED MEDICATIONS Discontinued Medications Generic Name Dose Route Start Last Admin Trade Name Freq PRN Reason Stop Dose Admin Lactated Ringer's 1,000 mls @ 999 mls/hr 06/23/25 10:14 06/23/25 11:30 Lactated Ringer's 1000 Ml Bag IV 06/23/25 11:14 Infused .Q1H1M ONE Infusion Ketorolac Tromethamine 15 mg 06/23/25 10:14 06/23/25 10:18 Ketorolac 15mg/Ml Vial IV 06/23/25 10:15 15 mg ONCE ONE Administration Morphine Sulfate 4 mg 06/23/25 10:07 06/23/25 10:16 Morphine 4mg/Ml Syringe IV 06/23/25 10:08 4 mg ONCE ONE Administration ORDERS Category Date Time Status POCUS Point of Care (ER Only) Stat Exams 06/23/25 09:58 Ordered XR chest portable Stat Exams 06/23/25 10:07 Completed CMP [Comprehensive Metabolic Panel] Stat Lab 06/23/25 09:50 Completed Complete Blood Count Auto Diff Stat Lab 06/23/25 09:50 Completed HIV Combo Stat Lab 06/23/25 09:50 Completed Hepatitis C Ab Qual. W/ RFX Stat Lab 06/23/25 09:50 Completed NT Pro Brain Natriuretic Pep. Stat Lab 06/23/25 09:50 Completed Troponin I Q3H Lab 06/23/25 13:15 Ordered Troponin I Q3H Lab 06/23/25 16:15 Ordered Troponin I Stat Lab 06/23/25 09:50 Completed Urinalysis and Microscopic Stat Lab 06/23/25 11:16 Completed Medical Decision Narrative: In summary, this 69-year-old male presents to the emergency department today with left flank. On initial evaluation patient is hemodynamically stable saturating appropriately on room air afebrile no acute distress. Differential diagnosis includes but is not limited to infected or uninfected obstructing or nonobstructing heart failure exacerbation urolithiasis ACS. Based on these concerns, I ordered CBC CMP troponin BNP chest x-ray UA. CT abdomen pelvis performed on 1030 independently reviewed and significant for no, left-sided 7 x 7 x 9 mm ureteral stone with hydronephrosis ECG personally interpreted demonstrates normal sinus rhythm frequent PVCs no ST elevation ST depression or T wave inversions concerning for ischemia. Patient received morphine Toradol lactated Ringer's for treatment. Labs personally reviewed demonstrate no leukocytosis no elevation in creatinine, UA with hematuria without other signs of infection, BNP is elevated. XR personally interpreted demonstrates interstitial edema Clinical workup concerning for stable heart failure no new oxygen requirement requiring admission. Patient has improvement of pain on repeat evaluation. Patient was offered potentially being transferred for evaluation by urologist today as patient has had intractable pain for the last 2 weeks but patient elected to follow-up with outpatient urology on Tuesday. As he does not have an GUILLERMINA and has no signs of infection and agreeable with this plan with strict return precautions in place. Patient offered repeat prescription for pain medication but notes that he still has pain medication at home and does not need a repeat prescription today. Of note, social determinants of health include inability to see urologist in timely manner. Procedures Limited Ultrasound Indication:: Left flank pain Findings:: Limited renal ultrasound Indication: A focused ultrasound of the kidneys was performed to evaluate for hydronephrosis and nephrolithiasis. The ultrasound was performed with the following indications, as noted in the H&P: Flank pain Identified structures: Left kidney Bladder Findings: Left kidney Moderate hydronephrosis Impression: Moderate hydronephrosis of left kidney without urinary retention Images saved to permanent archive The study was technically adequate CPT: 51400-12 This study was performed by me, and I personally interpreted all images/videos. Based on my clinical judgement, these images were [adequate/inadequate] and [did/did not] necessitate further imaging. Critical Care Critical Care Time Critical Care Time: No
[2025-06-23 09:59] LABS: Hematocrit 49.8 % (42.0-52.0); Hemoglobin 16.4 g/dL (14.1-18.0); Immature Granulocytes % 0.4 %; Mean Corpuscular HGB Conc 32.9 g/dL (31.8-35.4); Mean Corpuscular Hemoglobin 31.1 pg (27.0-31.2); Mean Corpuscular Volume 94.5 fl (80-94); Nucleated Red Blood Cells % 0 %; Platelet Count 147 K/mm3 (142-424); Red Blood Count 5.27 M/mm3 (4.60-6.20); Red Cell Distribution Width-SD 44.5 fL; White Blood Count 8.5 K/mm3 (4.8-10.8)
[2025-06-23 10:06] LABS: Alanine Aminotransferase 21 U/L (12-78); Albumin Level 4.0 g/dl (3.5-5.0); Albumin/Globulin Ratio 1.4 (1.1-1.8); Alkaline Phosphatase 73 U/L (38-126); Anion Gap 10.4 mEq/L (5-15); Aspartate Amino Transferase 27 U/L (17-59); Bilirubin,Total 0.7 mg/dl (0.2-1.3); Blood Urea Nitrogen 16 mg/dl (9-20); Calcium 8.9 mg/dl (8.4-10.2); Carbon Dioxide 27 mmol/L (22.0-30.0); Chloride 103 mmol/L (98-107); Creatinine Clearance Estimated 88 mL/min (50-200); Creatinine,Serum 1.20 mg/dl (0.66-1.25); Estimated Glomerular Filt Rate 60 ml/min (>60); GFR (African American) 72 ML/MIN (>60); Globulin 2.9 g/dL (1.3-3.2); Glucose 114 mg/dl (74-100); Potassium 4.4 mmoL/L (3.5-5.1); Sodium 136 mmol/L (136-145); Total Protein,Serum 6.9 g/dl (6.3-8.2)
--- NOTE | 2025-06-23 10:07 | XR_ITS ---
PROCEDURE INFORMATION: Exam: XR Chest Exam date and time: 06/23/2025 10:24 AM Age: 69 years old Clinical indication: Pain; Chest pressure; Additional info: Cp TECHNIQUE: Imaging protocol: Radiologic exam of the chest. Views: 1 view. COMPARISON: CT LUNG SCREENING 05/28/2025 1:31 PM FINDINGS: Lungs: Few linear and patchy opacities in the subpleural left mid lung are suggestive of scarring. No new distinct nodule or consolidation is identified. Mild interstitial and vascular prominence. Pleural spaces: Unremarkable. No pleural effusion. No pneumothorax. Heart/Mediastinum: Cardiomegaly. Mediastinal contours unremarkable. Bones/joints: Unremarkable. IMPRESSION: 1. Mild interstitial pulmonary edema. Possible congestive heart failure. 2. Scarring in the left lung. Right lung is grossly clear.
--- NOTE | 2025-06-23 10:07 | ECG_ITS ---
APPROVED REPORT Exam: Resting ECG HR:70 bpm ECG Measurements Heart Rate 70 AXES WA 151 P 64 QRSd 103 QRS 72 QT 403 T 12 QTc 423 Conclusion SINUS RHYTHM WITH FREQUENT VENTRICULAR PREMATURE COMPLEXES NONSPECIFIC T-WAVE ABNORMALITY ABNORMAL RHYTHM ECG UNCONFIRMED REPORT Electronically signed by : TEAGAN GAITAN, 06/24/2025 02:49:09
[2025-06-23] MEDS: MORPHINE 4MG/ML SYRINGE 4 MG IV (10:16)
[2025-06-23] MEDS: LACTATED RINGERS 1000ML 1,000 ML 999 ML IV (10:17)
[2025-06-23] MEDS: KETOROLAC 15MG/ML VIAL 15 MG IV (10:18)
[2025-06-23 10:54] LABS: NT Pro Brain Natriuretic Pep. 1100 pg/mL (0-125)
[2025-06-23 10:57] LABS: Troponin I < 0.01 ng/ml (0.00-0.034)
[2025-06-23 11:02] LABS: Hepatitis C Ab Qual. W/ RFX NEGATIVE (Negative)
[2025-06-23 11:21] LABS: Microscopic, Urine URINE MICROSCOPIC (MICROSCOPIC)
[2025-06-23 11:30] LABS: Bilirubin,Urine Negative (Negative); Color,Urine YELLOW (Yellow); Glucose,Urine (UA) Negative (Negative); Ketones,Urine Negative (Negative); Leukocyte Esterase,Urine Negative (Negative); PH,Urine 5.5 (5.0-8.5); Protein,Urine Negative (Negative); Specific Gravity, Urine >= 1.030 (1.005-1.030); Urobilinogen,Urine 0.2 EU/dl (0.2)
[2025-06-23 11:57] LABS: RBC,Urine Occasional #/hpf (0-3)
== END 2025-06-23 12:18 | disposition home or self-care (01) ==
PROVIDERS: Emergency Provider Student in an Organized Health Care Education/Training Program; PCP Nurse Practitioner Family
DX: N13.0 Hydronephrosis with ureteropelvic junction obstruction (principal); R10.32 Left lower quadrant pain; R10.A2 Flank pain, left side; I49.3 Ventricular premature depolarization
CPT/HCPCS: 71045; 80053; 81001; 83880; 84484; 85025; 86803; 87389; 93005; 96361; 96374; 96375; 99285; J1885; J2270; J7120

== ENCOUNTER 2025-07-03 09:48 | Outpatient (CLI) | payer MEDICARE, BC, SELFPAY | END 2025-07-03 23:59 | disposition home or self-care (01) | LOC: RT 09:49 | PROVIDERS: PCP Nurse Practitioner Family; Visit Provider Physician Assistant | DX: I48.91 Unspecified atrial fibrillation (principal); I48.92 Unspecified atrial flutter; I49.1 Atrial premature depolarization; I47.19 Other supraventricular tachycardia; I49.3 Ventricular premature depolarization; I47.29 Other ventricular tachycardia | CPT/HCPCS: 93270 ==

== ENCOUNTER 2025-08-12 10:07 | Outpatient (CLI) | payer MEDICARE, BC, SELFPAY ==
--- NOTE | 2025-08-12 10:15 | CA_ITS ---
APPROVED REPORT EXAM: Comprehensive 2D, Doppler, and color-flow Echocardiogram [employer] Teacher: Shweta Patino RT(R) Ht: 6 ft 2 in Wt: 249lbs BSA: 2.39 BP: 152/58 mmHg Indications: HFrEF, AFIB, CAD, mod on echo 06/2024 2D Dimensions LA Volume 81.60 mL LA Volume Index 34.14 mL/m2 (M/F) 16-34 EF AP4 44.80 % GL Strain -17.9 % M-Mode Dimensions RVDd 3.38 cm (0.9-2.6) LA Diam 5.32 cm (1.9-4.0) LVDd 6.49 cm (3.5-5.7) LVDs 5.55 cm (3.5-5.7) IVSd 1.03 cm (0.6-1.1) PWd 0.85 cm (0.6-1.1) EF (Teich) 30.10% FS 14.50% EDV (Teich) 215.20 mL ESV (Teich) 150.50 mL LV Diastology E Decel Time 223 (160-240 msec) E/A Ratio 1.3 Aortic Valve KONSTANTIN Index 0.45 cm2/m2 AoV Peak Camron. 299.0 (50-130 cm/s) AO Peak GR. 36.30 mmHg AO Mean GR. 17.80 (<5 mmHg) AO VTI 66.4 (18-25 cm) KONSTANTIN (VTI) 1.10 (2.5-4.5 cm2) Mitral Valve MV E Max Camron. 74.0 (40-130 cm/s) MV A Velocity 58.0 (40-130 cm/s) E/A Ratio 1.28 MV PHT 65.0 ms Left Ventricle The left ventricle is normal size. Left ventricular systolic function is mildly reduced. There is increased left ventricular wall thickness. There is mild global hypokinesis present. The left ventricular diastolic function is indeterminate. LVEF is 40-45% Right Ventricle The right ventricle is mildly dilated. The right ventricular systolic function is normal. Atria Left atrium is moderately dilated. Right atrium is moderately dilated. There is no color Doppler evidence of interatrial shunt. Aortic Valve The aortic valve is mildly thickened. Moderate aortic stenosis is present. KONSTANTIN by continuity equation is 1.3 cm2. Peak velocity is 3.1 m/s. Mean AV gradient is 22 mmHg. Max AV gradient is 37 mmHg. Mild aortic regurgitation is present. Mitral Valve The mitral valve is normal in structure. No evidence of mitral valve stenosis. Moderate mitral regurgitation is present. Tricuspid Valve The tricuspid valve leaflets are thin and pliable. Mild tricuspid regurgitation. RVSP is 20-25 mmHg. Pulmonic Valve The pulmonary valve is grossly normal in structure. Trace pulmonic valve regurgitation is present. Great Vessels The aortic root is normal in size. IVC is normal in size and collapses >50% with inspiration. Pericardium There is no pericardial effusion. Other Information Study Quality: Technically Difficult Conclusion Mildly reduced LV systolic function (LVEF 40-45%). Mild RV dilation. Biatrial dilation. Moderate (KONSTANTIN by continuity equation is 1.3 cm2. Peak velocity is 3.1 m/s. Mean AV gradient is 22 mmHg. Max AV gradient is 37 mmHg). Moderate MR. Mild AI., Mild TR. Electronically signed by : Carmen Pinon MD 08/19/2025 01:04:04
--- OUTSIDE RECORDS SUMMARY | 2025-08-12 10:18 | XMS_ITS | Clinical Summary ---
Author Organization [employer] ([place], [place], [place], [place], [place]) Address [address] [place] [address] Care Team Providers Care Lawn Caretaker Name Role Phone Elle Sal APRN Primary Care Provider [phone] Allergies No known active allergies Medications varenicline [...] 11/09/2021, 2019 Medical Devices Implanted Type Area Paver Installer Device Identifier Shelf Expiration Date Model / Serial / Lot Bone Matrx Vivigen Prefilled -1900-001 - [id number] Implanted:Qty : 1 on 10/16/2024 by Franco Mendes MD at [facility] IMPLANTS N/A: Spine Lumbar LIFENET:LIFENET TRANSPLANT SRV 09/12/2025 -1900-001 / [id number] / Cage T/Plif 13mm Eit 8d 10/05 [id number] - [id number] Implanted:Qty : 1 on 10/16/2024 by Franco Mendes MD at [facility] IMPLANTS N/A: Spine Lumbar J &J:DEPUY:DEPUY SPINE 07/14/2034 [id number] / / [id number] Imp Vpr Prm Cfxfen Xtab 7x50mm [id number] - [id number] Implanted:Qty : 4 on 10/16/2024 by Franco Mendes MD at [facility] IMPLANTS N/A: Spine Lumbar J &J:DEPUY:DEPUY SPINE [id number] / [id number] / Mis Susi Ply Scrw Set Ti 186-15-000 - [id number] Implanted:Qty : 4 on 10/16/2024 by Franco Mendes MD at [facility] IMPLANTS N/A: Spine Lumbar J &J:DEPUY:DEPUY SPINE / / Arceino Spine Viper 6.44x71mt 040 - [id number] Implanted:Qty : 2 on 10/16/2024 by Franco Mendes MD at [facility] IMPLANTS N/A: Spine Lumbar J &J:DEPUY:DEPUY SPINE / / Explanted Type Area Paver Installer Device Identifier Shelf Expiration Date Model / Serial / Lot Wire Nitonal 2866-12-320 - [id number] Explanted:Qty : 2 on 10/16/2024 at [facility] IMPLANTS N/A: Spine Lumbar J &J:DEPUY:DEPUY SPINE 2866-12-15 20 / 2866-12-15 20 / Insurance MEDICARE PART A B GENERIC COMMERCIAL Care Teams Lawn Caretaker Relationship Specialty Start Date End Date Elle Sal, C++ QUANT DEVELOPER [address] [place] [address] PCP - General Nurse Practitioner 10/16/24
--- OUTSIDE RECORDS SUMMARY | 2025-08-12 10:18 | XMS_ITS | Referral Summary ---
Author Organization [employer] ([place], [place], [place], [place], [place]) Address [address] [place] [address] Care Team Providers Care Manager Field Services Name Role Phone Elle Sal APRN Primary Care Provider [phone] Allergies No known active allergies Medications varenicline [...] drink = 0.6 oz pur e alcohol) [facility] Intimate Partner Violence Answer Da te Recorded [...] on file Medical Devices Implanted Type Area Sap [employer] Business Analyst Device Identifier Shelf Expiration Date Model / Serial / Lot Bone Matrx Vivigen Prefilled Bl-1900-001 - [id number] Implanted:Qty : 1 on 10/16/2024 by Franco Mendes MD at [facility] IMPLANTS N/A: Spine Lumbar LIFENET:LIFENET TRANSPLANT SRV 09/12/2025 BL-1900-001 / [id number] / Cage T/Plif 13mm Eit 8d 10/05 [id number] - [id number] Implanted:Qty : 1 on 10/16/2024 by Franco Mendes MD at [facility] IMPLANTS N/A: Spine Lumbar J &J:DEPUY:DEPUY SPINE 07/14/2034 [id number] / / [id number] Imp Vpr Prm Cfxfen Xtab 7x50mm [id number] - Implanted:Qty : 4 on 10/16/2024 by Franco Mendes MD at [facility] IMPLANTS N/A: Spine Lumbar J &J:DEPUY:DEPUY SPINE [id number] / / Mis Susi Ply Scrw Set Ti - [id number] Implanted:Qty : 4 on 10/16/2024 by Franco Mendes MD at [facility] IMPLANTS N/A: Spine Lumbar J &J:DEPUY:DEPUY SPINE / / Arcenio Spine Viper [id number] - [id number] Implanted:Qty : 2 on 10/16/2024 by Franco Mendes MD at [facility] IMPLANTS N/A: Spine Lumbar J &J:DEPUY:DEPUY SPINE / / Explanted Type Area Sap Fico Business Analyst Device Identifier Shelf Expiration Date Model / Serial / Lot Wire Nitonal 2866-05-320 - [id number] Explanted:Qty : 2 on 10/16/2024 at [facility] IMPLANTS N/A: Spine Lumbar J &J:DEPUY:DEPUY SPINE 2866-12-15 20 / 2866-12-15 20 / Insurance MEDICARE PART A B COMMERCIAL Care Teams Manager Field Services Relationship Specialty Start Date End Date Elle Sal APRN [address] [address] PCP - General Nurse Practitioner 10/16/24
== END 2025-08-12 23:59 | disposition home or self-care (01) ==
LOC: RT 10:08
PROVIDERS: PCP Nurse Practitioner Family; Visit Provider Physician Assistant
DX: I08.3 Combined rheumatic disorders of mitral, aortic and tricuspid valves (principal); I50.20 Unspecified systolic (congestive) heart failure; I48.0 Paroxysmal atrial fibrillation; I47.20 Ventricular tachycardia, unspecified
CPT/HCPCS: 93306